=== PATIENT | male | born 1925 | race Caucasian/White ===

== ENCOUNTER 2016-12-10 13:20 | Inpatient (IN) | payer MEDICARE ==
[2016-12-10] VITALS (8 sets, daily range): BP systolic 81–110; BP diastolic 45–64; PULSE 76–97; RESP 18–27; O2SAT 95–98
[~2016-12-10] VITALS: Ht 165.1 cm; Wt 62.9 kg
[~2016-12-10 13:20] MED LIST: ASPI-973 PO; FOLI1TAB18 PO; GLYB1.253 PO; INUL1TAB3 PO; LISI2.5T PO; MAGN100T5 PO; METO25TA6 PO; MULT-1018 PO; SIMV20TA4 PO
[2016-12-10] MEDS ORDERED: 0.9% Sodium Chloride 1,000 ML IV ONE (13:52)
--- NOTE | 2016-12-10 13:54 | ED.REPORT ---
HPI-General Illness Date of Service Dec 10, 2016 ED Provider: Javier Palomino DO The patient is an 89 year old male with history of coronary artery disease s/p CABG, CHF, atrial fibrillation, chronic renal insufficiency, diabetes mellitus dyslipidemia, urinary retention, bladder CA, and anemia, who presents to the emergency department by EMS for generalized weakness. His symptoms gradually worsened throughout the day. When he woke up from his nap his family thought he was more shaky, confused, and weak than normal. Medics report that the patient mentioned something about his chest feeling to similar to when he previously needed surgery but he did not elaborate more than this. He has noticed some discomfort with urination and a runny nose. He denies abdominal pain, vomiting, diarrhea, cough or fever. Nursing Notes Stated Complaint: WEAKNESS/EKG CHANGES Chief Complaint: General Complaint Nursing Notes Reviewed: Yes Allergies: Coded Allergies: No Known Allergies (Verified Allergy, Unknown, 12/10/16) Scheduled Aspirin (Aspirin) 81 Mg Tablet 81 MG PO DAILY Folic Acid (Folic Acid) 1 Mg Tablet 1 MG PO DAILY Glyburide (Glyburide) 1.25 Mg Tablet 0.625 MG PO DAILY Lisinopril (Lisinopril) 2.5 Mg Tablet 2.5 MG PO DAILY Magnesium Amino Acid Chelate (Magnesium) 100 Mg Tablet 200 MG PO BID Metoprolol Tartrate (Metoprolol Tartrate) 25 Mg Tablet 12.5 MG PO BID Multivitamin (Multi Vitamin Daily) 1 Each Tablet 1 EACH PO DAILY Simvastatin (Simvastatin) 20 Mg Tablet 20 MG PO HS Miscellaneous Medications Inulin/Chromium Picolinate (Fiber Select Gummies Tab Chew) 1 Each Tab.chew 1 EACH PO General Time Seen by MD: 13:41 Chief Complaint Weakness, Other (chills) Hx Obtained From: Patient, Daughter, EMS Arrived By: Ambulance Onset Occurred: 1 - 4 hours ago Symptom Duration: Since onset Severity: Current: No pain currently Severity: Maximum: No pain Recent Healthcare: No recent hospitalization, Recent doctor visit Similar Sx Previous: No Past Medical History Past Medical History 1. Coronary artery disease, with CABG at [facility]. 2. Congestive heart failure. Postoperative. 3. Atrial fibrillation, now with chronic anticoagulation. 4. Chronic renal insufficiency with recent acute on chronic renal insufficiency. He is currently at baseline, creatinine 1.6. 5. Dyslipidemia. 6. Postoperative urinary retention. 7. History of bladder CA and anemia. 8. Diabetes mellitus 9. S/p pacemaker insertion Past Surgical History Pacemaker Skin cancer excision Bladder cancer surgery Reports: CABG Family History Noncontributory Smoking History Former Smoker Social History Alcohol Use: Denies alcohol use Drug Use: Denies drug use Other Social History: Good social support, Lives with children, Local resident Ambulatory Status Independent Review of Systems Full Review of Systems Constitutional: Reports: Chills, Denies: Fever Respiratory: Denies: Non-productive cough GI: Denies: Abdominal pain, Diarrhea, Nausea, Vomiting Male: Reports Dysuria (sometimes), Denies Hematuria Allergy / Immune: Reports: Rhinorrhea Neurologic: Reports: Shaking, Weakness Complete sys rev & neg: except as marked. Physical Exam Vital Signs Vital Signs Date Time Temp Pulse Resp B/P Pulse Ox O2 Delivery O2 Flow Rate FiO2 12/10/16 13:37 37.4 96 27 110/54 96 Room Air Initial VS: Reviewed Head / Eyes: Atraumatic, Normocephalic, PERRL ENT: Mucous membranes moist, Conjunctiva normal, No scleral icterus Respiratory: Breath sounds normal, Clear to auscultation, No respiratory distress Cardiovascular: Regular rate & rhythm, Heart sounds normal, Intact distal pulses Abdomen / GI: Soft, Non-tender, No guarding, No rebound, No distention Lymphatic: No lymphadenopathy Extremities: Vascular intact, Neuro intact, No swelling, No tenderness Skin: Warm, Dry, No cyanosis Psychiatric: Mood/affect normal, Behavior normal, Normal thought content General/Constitutional: Awake, Alert Distress / Hydration: Positive: Distress mild Appears mildly weak Neck: Atraumatic, Supple, Full range of motion, No JVD Lower Extremity / Pelvis / MS: Neurologic intact, Vascular intact, No edema Neurologic: Oriented X3, Speech NL, No motor deficits, No sensory deficits, CN II - XII intact Interpretation & Diagnostics Interpretation & Diagnostics: 1.28 creatinine from 11/17/16 Lab Results Interpretation Result Diagram: 12/10/16 1415 12/10/16 1415 Test 12/10/16 14:15 White Blood Count 5.9th/mm3 (3.8-10.1) Red Blood Count 3.86mil/mm3 (4.40-5.80) Hemoglobin 11.5g/dL (13.8-17.2) Hematocrit 34.8% (41.0-50.0) Mean Corpuscular Volume 90.2fL (81-100) Mean Corpuscular Hemoglobin 29.8pg (27.0-35.0) Mean Corpuscular Hemoglobin Concent 33.0% (32.0-37.0) Red Cell Distribution Width 13.7% (12.3-15.4) Platelet Count 108bil/L (150-400) Neutrophils (%) (Auto) 94.2% (40-74) Lymphocytes (%) (Auto) 2.9% (14-46) Monocytes (%) (Auto) 1.9% (4-12) Eosinophils (%) (Auto) 0.3% (0-5) Basophils (%) (Auto) 0% (0-3) Sodium Level 136mEq/L (134-144) Potassium Level 4.5mEq/L (3.5-5.2) Chloride Level 101mEq/L (97-108) Carbon Dioxide Level 19mmol/L (18-29) Blood Urea Nitrogen 31mg/dL (8-27) Creatinine 1.33mg/dL (0.76-1.27) Estimat Glomerular Filtration Rate 54mL/min (>59) Glucose Level 85mg/dL (60-99) Lactic Acid Level 1.5mmol/L (0.4-2.0) Calcium Level 8.0mg/dL (8.5-10.1) Magnesium Level 1.5mg/dL (1.6-2.6) Total Bilirubin 1.0mg/dL (0.0-1.2) Aspartate Amino Transf (AST/SGOT) 91U/L (0-50) Alanine Aminotransferase (ALT/SGPT) 41U/L (0-44) Alkaline Phosphatase 129U/L (25-160) Troponin T 0.047ug/L (0.0-0.011) Total Protein 5.6g/dL (6.4-8.4) Albumin 3.4g/dL (3.4-5.0) Procalcitonin 13.56ng/mL (0.00-0.08) ECG Interpretation ECG Interpretation: Sinus rhythm with a rate of 96 Incomplete RBBB No acute ischemic changes Time: 13:44 Interpreted by: ED physician X-Ray Chest Interpretation Chest Xray Interpretation: IMPRESSION: No acute cardiopulmonary disease process. Dictated by: Cora Smith MD, PhD on 12/10/2016 at 14:18 View: Portable, 1 view Interpretation / Wet Read by: Interpret - Radiologist Re-Eval/Medical Decision Med Decision/Clinical Course Generalized weakness of unclear etiology. Will plan to wait for further lab evaluation. Care transferred to Dr. Coyle. Source of Hx: Old records, EMS, Family Counseled Regarding: Diagnosis, Lab results Discharge & Departure Shift Change Sign-Out Patient Care Transferred: Yes Discussed Complaint(s): Yes Laboratory Evaluation: Ordered, not yet done Imaging Studies: Imaging discussed Response to Therapy: Discussed Primary Impression: Generalized weakness Discharge Condition All VS Reviewed: Yes Condition: Stable Referrals: Aly Duncan MD (PCP) Care Transferred to: Dr. Coyle Care Transferred at: 15:10 Scribe Attestation Portions of this note were transcribed by Pilar Bridges. I, Dr. Palomino personally performed the history, physical exam and medical decision-making; I reviewed and confirmed the accuracy of the information in the transcribed note. Signed by: Nelli Sheehan, 12/10/2016 and 1506. copies to: Aly Duncan MD, Timothy S DO Dec 10, 2016 13:54 Pilar Bridges Dec 10, 2016 13:57
--- NOTE | 2016-12-10 14:21 | DRSVH ---
PROCEDURE: X-RAY CHEST ONE VIEW, PORTABLE ([id number]) INDICATIONS: CHEST PAIN TECHNIQUE: One view of the chest was acquired. COMPARISON: [facility], , CHEST 1VW (PORTABLE), 03/08/2011, 14:57. FINDINGS: Surgical changes and devices: Status post CABG procedure. A dual-lead cardiac pacer is stable. Lungs and pleura: No pleural effusions or pneumothorax. Lungs are clear. Mediastinum: Mediastinal contours appear normal. Heart size is normal. Bones and chest wall: No suspicious bony lesions. Overlying soft tissues appear unremarkable. IMPRESSION: No acute cardiopulmonary disease process. Dictated by: Cora Smith MD, PhD on 12/10/2016 at 14:18 Approved by: Cora Smith MD, PhD on 12/10/2016 at 14:19
[2016-12-10 14:25] LABS: BASOPHILS % (AUTO) 0 % (0-3); EOSINOPHILS % (AUTO) 0.3 % (0-5); MONOCYTES % (AUTO) 1.9 % (4-12); Mean Corpuscular Hemoglobin 29.8 pg (27.0-35.0); Mean Corpuscular Volume 90.2 fL (81-100); NEUTROPHILS % (AUTO) 94.2 % (40-74); Platelet Count 108 bil/L (150-400)
[2016-12-10 15:11] LABS: Magnesium 1.5 mg/dL (1.6-2.6)
[2016-12-10 15:13] LABS: TROPONIN T 0.047 ug/L (0.0-0.011)
[2016-12-10] MEDS ORDERED: 0.9% Sodium Chloride 500 ML IV ONE ×2 (17:00→18:25)
[2016-12-10] MEDS ORDERED: Magnesium Chloride SR 64 mg ER24 Tablet PO ONE (17:30)
[2016-12-10 17:31] LABS: APPEARANCE,URINE CLEAR (CLEAR,HAZY); COLOR,URINE YELLOW (YELLOW); OCCULT BLOOD,URINE NEGATIVE (NEGATIVE); PH,URINE 5.5 (5.0-8.0); UROBILINOGEN,URINE NORMAL (NORMAL)
[2016-12-10] MEDS ORDERED: Vancomycin Dose per Pharmacist XX ONE (18:00)
[2016-12-10] MEDS ORDERED: Piperacillin-Tazo 3.375 Gm Inj 3.375 GM in Dextrose 5% Minibag Plus 50 ML IV ONE (18:00)
[2016-12-10] MEDS ORDERED: Tobramycin per Pharmacist XX ONE (18:00)
[2016-12-10] MEDS ORDERED: Doxycycline Inj 100 MG in Dextrose 5% 100 ML IV ONE (18:00)
[2016-12-10] MEDS ORDERED: Magnesium Sulf 2 Gm/50mL Water 2 GM in IV Premix 1 EACH IV ONE (18:15)
[2016-12-10] MEDS: 0.9% Sodium Chloride 1,000 ML IV SCH (18:21)
[2016-12-10] MEDS ORDERED: Ondansetron 2 mg/mL 2 mL Inj IVPUSH PRN (18:25)
[2016-12-10] MEDS ORDERED: Alum-Mag Hydrox-Simeth 30 mL Suspension PO PRN (18:25)
[2016-12-10] MEDS ORDERED: Gentamicin Inj 120 MG in Dextrose 5% 50 ML IV ONE (19:05)
[2016-12-10] MEDS ORDERED: IBUP200C PO (20:19)
[2016-12-10] MEDS ORDERED: CHOL200047 PO (20:21)
--- NOTE | 2016-12-10 22:54 | PCM.HPMED ---
Subjective Date of Service Dec 10, 2016 Primary Provider: Admitting Physician: Gregg Gooden MD Primary Care Physician: Aly Duncan MD Attending Physician: Gregg Gooden MD Chief Complaint: Generalized weakness History of Present Illness: The patient is an 89 year old male with history of coronary artery disease s/p CABG, CHF, atrial fibrillation, chronic renal insufficiency, diabetes mellitus dyslipidemia, urinary retention, bladder CA, and anemia p/w generalized weakness. Patient was usual state of health until this morning, woke up with severe shaking and chills, with watery runny nose. Otherwise, patient was eating okay with good appetite, no cough or phlegm urinary discomfort, chest pain, palpitation, nausea, vomiting, abdominal pain, constipation-baseline, no diarrhea, joint pain, muscle pain, rash, sore throat. No episode of confusion per daughter. Although daughter recalls the patient had cold around season, this has resolved. Recently patient has been very healthy, functional, walks with cane or walker, no weight loss. Patient received pneumococcus vaccine, flu shot this season. In ED, VS 110/54, 96, 27, 96% on %RA, afebrile, pt appeared non toxic, then pt became hypotensive to mid 90s, s/p 2liters of NS, labs were notable for elevated [id number], lactate 1.5, mild troponin, cr1.33, mg1.5, UA clean, CXR no acute findings. flu swab negative. pt received vanc/zosyn/doxycyclin/ gentamycin, [id number], mg repleted. during the encounter, pt remained very pleasant, denied having any symptoms at the moment, has difficulty appearing Review of Systems: Pertinent positives as noted in history of present illness. All other systems were reviewed and are negative Allergies Coded Allergies: No Known Allergies (Verified Allergy, Unknown, 12/10/16) Home Medications Aspirin daily Folic acid 1 mg daily Glyburide 1.25 milligrams half tablet daily Ibuprofen 200 mg 3 times a day when necessary lisinopril 2.5mg daily magnesium 200 mg twice a day Metoprolol 25 mg, 1/2tab bid triamcinolone apply qhs vitD3 qd PMH PMH 1. Coronary artery disease, with CABG at [facility]. 2. Congestive heart failure. Postoperative. 3. Atrial fibrillation, now with chronic anticoagulation. 4. Chronic renal insufficiency with recent acute on chronic renal insufficiency. He is currently at baseline, creatinine 1.6. 5. Dyslipidemia. 6. Postoperative urinary retention. 7. History of bladder CA and anemia. 8. Diabetes mellitus 9. S/p pacemaker insertion Past Surgical History Pacemaker Skin cancer excision Bladder cancer surgery Reports: CABG Family History cannot remember Smoking History Former Smoker Social History Hx Alcohol Use: No Hx Substance Use: No Hx Tobacco Use: Yes (Quit 22 years ago) Smoking Status: Former Smoker Exam Vital Signs Vital Sign - Last Date Time Temp Pulse Resp B/P Pulse Ox O2 Delivery O2 Flow Rate FiO2 12/10/16 18:56 36.6 79 18 92/50 97 Room Air Exam NAD, comfortably laying down on the bed no JVD, MMM, no LAD RRR, nl s1, s2 no mrg CTAB, no w,c S,ND,NT,normoactive BS+ warm, no edema, pulses 2/2 Lab and Diagnostics Result Diagram: 12/10/16 1415 12/10/16 1415 X-Rays, CTs and MRIs PROCEDURE: X-RAY CHEST ONE VIEW, PORTABLE ([id number]) INDICATIONS: CHEST PAIN TECHNIQUE: One view of the chest was acquired. COMPARISON: [facility], , CHEST 1VW (PORTABLE), 03/08/2011, 14:57. FINDINGS: Surgical changes and devices: Status post CABG procedure. A dual-lead cardiac pacer is stable. Lungs and pleura: No pleural effusions or pneumothorax. Lungs are clear. Mediastinum: Mediastinal contours appear normal. Heart size is normal. Bones and chest wall: No suspicious bony lesions. Overlying soft tissues appear unremarkable. IMPRESSION: No acute cardiopulmonary disease process. Dictated by: Cora Smith MD, PhD on 12/10/2016 at 14:18 Approved by: Cora Smith MD, PhD on 12/10/2016 at 14:19 12-lead ECG Old right bundle branch block, sinus96 Assessment & Plan acute, active probable severe sepsis with unstable hemodynamics, POA, MAP>60s s/p 2liters NS, w/o any signs of endocrine dysfunction, patient is not toxic looking, no obvious signs of infection. UA/CXR clean, no rash/decub ulcer. flu swab neg -continue 100cc/hr NS, trends fever curve, procalcitonin -awaits resp PCR, BCX -consider panscan if pt still remains hypotensive tomorrow, -will continue empiric abx vanc, zosyn for now, #troponemia, POA, EKG-unchanged, likely in setteng of sepsis, trends 3sets chronic, stable #CAD s/p CABG, hx of CHF, appeared mildly dry, continue IVF for now, continue aspirin/bb #Atrial fibrillation, hx of Tachybrady syndrome, status post pacemaker placement , stable, used to be on AC, currently not on #CKD, baseline cr1.6, currently1.3, avoid renal toxin, renally adjust meds #History of bladder CA and anemia, stable #Diabetes mellitus, lispro SS for now, held Glyburide dispo:Patient will be admitted with inpatient status with expectation of inpatient therapy for more than 2 midnights diet: Cardiac, diabetic dvt ppx: Heparin subcutaneous Full Code Time spent 65min Gregg Gooden MD Dec 10, 2016 19:01
[2016-12-11] VITALS (7 sets, daily range): BP systolic 97–110; BP diastolic 52–61; PULSE 63–86; RESP 18–19; O2SAT 96–99
[2016-12-11] MEDS: 0.9% Sodium Chloride 1,000 ML IV SCH ×2 (00:10→14:21)
--- NOTE | 2016-12-11 00:23 | PCM.CONPHA ---
Assessment/Plan Assessment/Plan Pharmacy Kinetic Dosing Vancomycin Indication: PROBABLE SEVERE SEPSIS Vanc goal trough: 15-20 mcg/mL Pt wt: 64.9 kg Other ABX: ZOSYN Cultures: Blood PENDING SCr: 1.33 mg/dL Assessment/Plan: -Loading dose of Vancomycin 1250 mg given in ED for (20mg/kg dosing) -Will continue Vancomycin 1000 mg Q24H (15mg/kg dosing) with trough scheduled prior to 4th dose on - @ 1930 due to patients renal function. Pharmacy appreciates consult and will continue to monitor. Beckie Vickers PharmD Dec 11, 2016 00:22
[2016-12-11 00:41] LABS: TROPONIN T 0.038 ug/L (0.0-0.011)
[2016-12-11 06:40] LABS: BASOPHILS % (AUTO) 0.1 % (0-3); EOSINOPHILS % (AUTO) 0.5 % (0-5); MONOCYTES % (AUTO) 7.6 % (4-12); Mean Corpuscular Hemoglobin 29.6 pg (27.0-35.0); Mean Corpuscular Volume 90.2 fL (81-100); Platelet Count 101 bil/L (150-400)
[2016-12-11 07:15] LABS: Magnesium 2.3 mg/dL (1.6-2.6); Phosphorus 2.7 mg/dL (2.5-4.9)
[2016-12-11] MEDS: Piperacillin-Tazo 3.375 Gm Inj 3.375 GM in Dextrose 5% Minibag Plus 50 ML IV SCH ×2 (08:23→18:22)
[2016-12-11] MEDS ORDERED: Heparin 5,000 Unit/mL Inj SUBQ SCH (08:30)
[2016-12-11] MEDS ORDERED: Vancomycin Dose per Pharmacist XX SCH (08:30)
--- NOTE | 2016-12-11 11:06 | PCM.PNMED ---
Subjective Date of Service Dec 11, 2016 Subjective Patient seen and examined at bedside today, accompanied by his daughter during evaluation who provides some of collateral history. He notes to be feeling significantly improved, daughter confirms this. She remains unclear what it happened the day prior, which prompted emergency room presentation. Onset was acute patient just noted significant decompensation and overall health. Overnight he reports sleeping well, numerous times to urinate. Abdominal pain complained of previously has essentially resolved, he has no other complaints at this time. Continues to deny chest pain. Shortness of breath resolved. Chills and sweats experienced previously have also resolved overnight and have not returned this morning. Note appetite present but not great, daughter additionally adds that he is a light eater and drinks very little water generally at home. Aside from the stuffy nose and some mild viral symptoms recently, he has had no other concerning findings at home. Her also denies sick contacts. He is up-to-date with vaccination history including seasonal flu. Exam Vital Signs Vital Sign - Last Date Time Temp Pulse Resp B/P Pulse Ox O2 Delivery O2 Flow Rate FiO2 12/11/16 09:55 36.7 66 19 97/59 99 Room Air Intake and Output 12/10/16 12/10/16 12/11/16 Cumulative From/Thru 15:00 23:00 07:00 12/10/16 13:37 - 12/10/16 18:57 Intake Total 1000 ml 1000 ml 2000 ml Balance 1000 ml 1000 ml 2000 ml IV Total 1000 ml 1000 ml 2000 ml Exam General: Patient is alert and oriented to person and location, in no acute distress. Pleasant and cooperative examination HEENT: Pupils are round and reactive to light, extraocular eye muscles are intact. Mucous membranes are moist. No oral lesions noted. Neck is supple without masses. No JVD demonstrated. Heart: Regular rate and rhythm, no murmurs rubs or gallops. Heart rate in 60s Lungs: Clear to auscultation bilaterally. No wheezes crackles or rhonchi. Abdomen: Bowel sounds present, normoactive. Abdomen is nontender with perhaps mild distention. Certainly no guarding.. No organomegaly noted on palpation. Extremities: Well perfused. Demonstrate no edema, no calf pain on palpation. Dorsal pedis pulses present bilaterally. Neurologic: Nonfocal examination. IVs and Medications Medications Reviewed: Medications were reviewed in detail Lab and Diagnostics Result Diagram: 12/11/1661312/11/16613 X-Rays, CTs and MRIs PROCEDURE: X-RAY CHEST ONE VIEW, PORTABLE ([id number]) INDICATIONS: CHEST PAIN TECHNIQUE: One view of the chest was acquired. COMPARISON: [facility], CR, CHEST 1VW (PORTABLE), 03/08/2011, 14:57. FINDINGS: Surgical changes and devices: Status post CABG procedure. A dual-lead cardiac pacer is stable. Lungs and pleura: No pleural effusions or pneumothorax. Lungs are clear. Mediastinum: Mediastinal contours appear normal. Heart size is normal. Bones and chest wall: No suspicious bony lesions. Overlying soft tissues appear unremarkable. IMPRESSION: No acute cardiopulmonary disease process. Dictated by: Cora Smith MD, PhD on 12/10/2016 at 14:18 Approved by: Cora Smith MD, PhD on 12/10/2016 at 14:19 12-lead ECG Old right bundle branch block, sinus96 Assessment & Plan acute, active #1. Severe Sepsis/Hypotension: Unknown source however presenting with unstable hemodynamics, POA, MAP>60s s/p 2liters NS, w/o any signs of endocrine dysfunction, patient is not toxic looking this morning, no obvious signs of infection. UA/CXR clean, no rash/decub ulcer. flu swab neg -continue 100cc/hr NS, trends fever curve, procalcitonin elevated significantly overnight, lactic acid level is still pending. -awaits resp PCR is grossly negative, BCX are still present. A mild leukocytosis has developed white blood cell count is now 13, neutrophil percentage however it is declining. -Blood pressure is low but stable, heart rate controlled with beta nick given comorbid cardiovascular disease. -will continue empiric abx vanc, zosyn for now, pending results of MRSA screen and blood cultures. May consider narrowing spectrum tomorrow if patient remains clinically improved and stable. - A consider abdominal CT/ultrasound, later today or tomorrow if patient's condition declines, abdominal pain 3 presents, or if lactic acid level or other studies suggest worsening medical condition. - Alternative diagnoses include transient arrhythmia, secondary to volume depletion, now corrected. Monitor monitoring at this time show no evidence of recurrent event however should this be the case. #Troponemia, POA, EKG-unchanged, likely in setteng of sepsis, likely secondary to cardiac strain renal insufficiency versus true ACS. We will continue to monitor on telemetry. chronic, stable #CAD s/p CABG, hx of CHF, appeared mildly dry, continue IVF for now, continue aspirin/bb #Atrial fibrillation, hx of Tachybrady syndrome, status post pacemaker placement , stable, used to be on AC, currently not on currently due to bleeding risk. #CKD, chronic condition which is improving since admission with volume repletion. #History of bladder CA and anemia, stable #Diabetes mellitus, lispro SS for now, held Glyburide to prevent hypoglycemia. Pain Evaluation: Adequate Pain Control VTE Mechanical Devices: Intermittant Pneumatic CD Resuscitation Status: CPR: Attempt Resuscitation Time spent 30 minutes Tra Nguyen DO Dec 11, 2016 11:06
--- NOTE | 2016-12-11 13:35 | NUR ---
Case Management: Clarification of patient status: inpatient from 12/10/16 per MD order. Bradley Gill RN
--- NOTE | 2016-12-11 16:59 | NUR ---
Case Management: IMM already in chart and signed 12/10/16. Rachel Gregg RN
--- NOTE | 2016-12-11 17:03 | CONS ---
[address] [address] CONSULTATION REPORT PATIENT: TEDDY TAVERAS : 1925 MR#: [id number] ADMIT: 12/10/2016 JOB ID: [id number] DATE OF SERVICE: 12/11/2016 INFECTIOUS DISEASE CONSULTATION: I thank Dr. Gooden for this timely consult. REASON FOR CONSULTATION: Infection of undetermined site. HISTORY OF PRESENT ILLNESS: The patient is an 89-year-old gentleman, an [employer] , who has little insight into why he is here, or in fact even where he is. The patient is apparently quite functional and lives at home with his on [address]. He tells me he goes for a walk every day and is fairly active at baseline. The patient reports he lives with his large extended family on [address] and has been doing quite well up until yesterday, December 10, which was the day of admission. Basically early in the morning of December 10 the patient was reported to have shaking chills and perhaps a runny nose. Otherwise the family told the emergency department physician he was doing very well and having no issues at all. When I interview the patient this afternoon he really has very little idea about what has been going on lately. He tells me that he usually is doing fine at his home on [address] and now finds himself in this strange location. The nurse and I have to keep reorienting the patient as he really does not seem to know that he is in a hospital, though if he is told that he can remember it for at least a short period of time. He is otherwise oblivious to his current situation here. He tells me that he feels basically feels fine. He denies having any recent fevers, chills, or sweats. He denies headache. He denies stiff neck. He says he has had a little bit of a dry cough and perhaps a runny nose, but these are minor. He denies nausea, vomiting, diarrhea, or dysuria. He does not have any pain in his joints and as mentioned has no constitutional symptoms at all. The patient basically tells me he is ready to go. On admission it was noted the patient was not febrile but that he was hypotensive and required fluid boluses. Since that time his blood pressure has stabilized and he has saturated very well on room air and been conversational throughout, though clearly is encephalopathic at this point. 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 b. History of CHF. c. Atrial fibrillation. d. Pacer, left chest. 2. Chronic renal insufficiency. 3. Diabetes. 4. Hypertension. 5. History of bladder cancer. SOCIAL HISTORY: The patient served three years in the [employer] during the time of the [place] war. 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 He was a smoker for almost 40 years, from his 20s until his 60s, but then he quit over 20 years ago. He does not drink alcohol, or at least very minimal amounts. Lives with his extended family on [address]. FAMILY HISTORY: Unclear as the patient's memory is not good but he denies any history of anyone in the family, including his parents or siblings, having tuberculosis. REVIEW OF SYSTEMS: Was done but it is hard to say how accurate any of this is as the patient is somewhat confused right now. He states he has no headache, no fullness in the ears, no sore throat. No stiff neck. No visual change. Minimal perhaps dry cough without shortness of breath or chest pain. No nausea, no vomiting, no diarrhea. No dysuria, urgency, frequency, swollen joints, tender joints, skin rash, or neurologic problem except occasional periods of weakness with which he says he has to steady himself while walking. The remainder of the review of systems was negative. PHYSICAL EXAMINATION: Reveals an afebrile gentleman; he has been afebrile throughout his short stay here in the hospital, now 36.9. His pulse is 86, respiratory rate is 18, blood pressure 110/61, he is saturating well on room air. The patient is awake, alert, pleasant, but really only oriented x1. His head is without evidence of trauma. His ears appear normal. His eyes without conjunctival or scleral abnormalities. Nose normal. Oral cavity without thrush or hairy leukoplakia. Neck is reasonably supple for his 89 years. No adenopathy or JVD is noted. Lungs are quite clear bilaterally. Cardiac tones irregular rate and rhythm, but without murmur. Note that his heart tones are very distant and difficult to auscultate. He has no peripheral stigmata of endocarditis on his hands and specifically no Janeway or Osler lesions. His abdomen is soft and nontender. There is no hepatosplenomegaly or ascites. There is no suprapubic fullness. He is wearing briefs and does not have a Winn. He does have some loose stool in his briefs as well as scattered around the bed. His joints are without evidence of synovitis or swelling. His muscles are nontender. No skin rash is seen. The patient is strong neurologically when asked to push against resistance with his arms and legs. He does not appear to have any sensory issues. The remainder of the physical is normal. LABORATORIES: Include a white count that was 5000 when he came in; it is now 13,000 with a bit of a left shift. Platelet count 101. His creatinine is 1.35, which is at or below his stated baseline. His lactic acid is 0.9. His LFTs are notable for an AST of 75. His albumin 3.3. Procalcitonin when he came in was 13.5, and this morning it was 48. Urinalysis is without any white cells. Blood cultures are negative at 24 hours and a respiratory viral PCR panel is negative. IMAGING: Includes a chest x-ray which is normal. IMPRESSION: This is an odd interesting case of a gentleman who was basically brought to the emergency department by his family it would seem because of profound weakness and a violent shaking chill yesterday morning. Once admitted, the patient is confused and really uncertain as to his location or date, though he is pleasant and conversational and answers questions seemingly appropriately. We are left with a patient with really a nonfocal set of labs which are mainly remarkable for his high white count and extremely elevated procalcitonin. His other labs do not help much in that he has no white cells in his urine which would almost rule out a UTI and his chest x-ray is completely clear which would make pneumonia highly unlikely. It would seem that, based on his encephalopathy, high procalcitonin, and leukocytosis, that he must have a significant bacterial infection producing these mental status changes and weakness. Note that he also initially presented with dehydration and a bit of hypotension which has resolved. Potential sources for this infection might include endocarditis such as a viridans or enterococcal endocarditis, meningitis though he does not have a stiff neck or much else to suggest that diagnosis, or perhaps an occult abdominal or pelvic process which is relatively asymptomatic. RECOMMENDATIONS: 1. Echocardiogram of the heart will be ordered. 2. Repeat blood cultures x2 in an attempt cone picker a potential bacteremia. 3. I would strongly consider a CT scan of the abdomen and pelvis looking for an occult source of infection such as an intra-abdominal abscess. I will not order this and will defer to the hospitalist at this time on this study. 4. A lumbar puncture would not be unreasonable here as we have a patient who is confused and by report is not normally encephalopathic or demented. He also has evidence of infection arguing against an acute bacterial meningitis as he has a completely benign appearance and absence of a stiff neck. It is also possible that he could have an encephalitis such as herpes simplex or VZV but again I would expect more changes in sensorium than this simple confused appearance that we see today. We can probably wait on that at least until tomorrow as we consider what to do. 5. I note that the patient has received a combination of antibiotics including doxy, gent, and vanc, and Zosyn. I will go ahead and stop the doxy, gent, and vanc at this point. Continuing the Zosyn is probably reasonable while we try and figure out what is going on here. 6. A MRSA will be ordered.
[2016-12-11] MEDS ORDERED: Vancomycin Inj 1,000 MG in IV Premix 1 EACH IV SCH (20:00)
[2016-12-11] MEDS ORDERED: MAGNESIUM AMINO ACID CHELATE PO SCH (20:30)
--- NOTE | 2016-12-11 21:52 | DRSVH ---
PROCEDURE: CT ABDOMEN WITHOUT CONTRAST ([id number]) INDICATIONS: abdominal pain/bloating/sepsis TECHNIQUE: After the administration of oral contrast, 5 mm thick sections acquired from the diaphragms to the il iac crests. 5 mm coronal and sagittal reformats were then performed. For radiation dose reduction, the following was used: automated exposure control, adjustment of mA and/or kV according to patient size. COMPARISON: None. FINDINGS: Image quality: Excellent. Lung bases: Trace pleural effusions and adjacent atelectasis. 5 mm nodule seen in left lung base on i mage 7 series 3, indeterminate. Solid organs: Unenhanced liver and spleen are normal in size. Gallbladder demonstrates diffuse wall thickening although no radiopaque gallstones are seen. No definite biliary ductal dilatation. Pancre as is normal in contours. Left adrenal nodule, with borderline attenuation possibly adenoma although technically nonspecific. Both kidneys are normal in size, without hydronephrosis or nephrolithiasis. Peritoneum and bowel: Bowel loops demonstrate normal wall thickness and caliber. No free fluid or a ir. Appendix not visualized Nodes and vessels: No pathologically enlarged retroperitoneal or mesenteric lymphadenopathy. Infraren al abdominal aortic aneurysm measuring 3.3 cm. Bones: No suspicious bony lesions. No vertebral body compression fractures. Miscellaneous: No ventral hernias. IMPRESSION: Diffuse gallbladder wall thickening suspicious for acute cholecystitis although this finding is techn ically age-indeterminate. Recommend clinical correlation, and with LFTs. Nonspecific left adrenal nodule. Recommend followup with adrenal protocol MRI to exclude metastatic/m alignant possibilities. Distal abdominal aortic aneurysm measuring 3.3 cm. Recommend continued surveillance with ultrasound. Bilateral trace pleural effusions. 5 mm left basilar pulmonary nodule, also nonspecific. This could be followed up with noncontrast ches t CT in 6 months to exclude early metastatic/malignant etiology. Dictated by: Jac Garduno M.D. on 12/11/2016 at 21:45 Approved by: Jac Garduno M.D. on 12/11/2016 at 21:51
--- NOTE | 2016-12-11 23:03 | NUR ---
Activity Pt insisted on getting up OOB to commode Pt was a very heavy two person assist. Unable to hold his own weight. REturned safely to bed. Bed Alarm in place Care ongoing
[2016-12-12] VITALS (9 sets, daily range): BP systolic 109–159; BP diastolic 54–79; PULSE 64–80; RESP 18; O2SAT 93–97
--- NOTE | 2016-12-12 00:24 | NUR ---
Confusion Pt has a hx of dementia. He currently is very confused. Oriented to name only. Pulling off his gown asking to "get the cable underway and move the logs". Attempted to reoirent numerous times. Daughter at bedside appears upset with the pt's restless confusion. Room darkened. Requested pt to go to sleep. Pt appears mildly quieter. WIll cont to monitor
[2016-12-12 07:05] LABS: BASOPHILS % (AUTO) 0.1 % (0-3); EOSINOPHILS % (AUTO) 1.2 % (0-5); MONOCYTES % (AUTO) 6.6 % (4-12); Mean Corpuscular Hemoglobin 30.3 pg (27.0-35.0); Mean Corpuscular Volume 90.1 fL (81-100); NEUTROPHILS % (AUTO) 74.7 % (40-74); Platelet Count 106 bil/L (150-400)
[2016-12-12] MEDS ORDERED: Non-Formulary Medication (Multivitamin (Multi Vitamin Daily) 1 EACH) PO SCH (08:30)
--- NOTE | 2016-12-12 09:26 | NUR ---
Social Work: Initial Assessment Data: Pt is an 89 y/o male admitted for n stemi, new right bundle branch block. Pt's PCP is Dr Duncan, pt's insurance is [employer]. EMR reviewed. ABSEILING INSTRUCTOR met with pt at daughter at bedside, pt sleeping soundly. Pt's daughter is DPOA, and gave information. She states pt lives with herself, his daughter, and his son who care give for him as he has dementia. She states that their home is a single story with 3 steps to enter, pt uses a walker and cane at baseline. She states pt has no history at SNF or HH, No LTC or VA benefits, and is not a caregiver. ABSEILING INSTRUCTOR will continue to follow for possible HH need. Assessment: Pt with dementia. Plan: Pt will likely d/c home via POV with daughter when medically stable. ABSEILING INSTRUCTOR will continue to follow for possible HH need. KAITLIN Cruz Addendum: 12/12/16 at 0929 by DOV NOVAK Amended: Links added.
[2016-12-12] MEDS: Piperacillin-Tazo 3.375 Gm Inj 3.375 GM in Dextrose 5% Minibag Plus 50 ML IV SCH ×2 (09:32→18:07)
--- NOTE | 2016-12-12 13:46 | PROG NOTE ---
[address] [address] PROGRESS NOTE PATIENT: TEDDY TAVERAS : 1925 MR#: [id number] ADMIT: 12/10/2016 JOB ID: [id number] DATE: 12/12/2016 INFECTIOUS DISEASE FOLLOWUP NOTE: REASON FOR FOLLOWUP: Unexplained leukocytosis and elevated procalcitonin following chills in a demented gentleman. INTERVAL HISTORY: Additional history was obtained this afternoon from the patient's daughter. She states that the patient has been getting confused for about the past year and a half. She tells me that he usually knows where he is but is easily mixed up, disoriented, and that this problem has been relentlessly progressive for about 18 months now. She also tells me that she was with him when this situation started a few days ago. The patient was feeling his usual self and then developed a violent shaking chill. The patient wondered aloud if he might be having a stroke. After that, he became much more confused than is his confused baseline and for that reason he was brought to the hospital and admitted. Speaking to the patient this morning, he again states he feels fine. He denies all complaints. He allowed me to examine him but about longterm through declined any more physical contact with the examiner. The patient remains completely afebrile and has been since admission two days ago. He is 36.8 now, pulse 80, respiratory rate 18, blood pressure 108/54. He is saturating well on room air. The patient is again confused. He refuses to say where he is and is not aware of time, though he does answer questions and has fluent speech. The exam of the oral cavity is unremarkable. His neck is reasonably supple. His lungs are quite clear. Cardiac tones without significant murmur. Abdomen is benign including deep pressure in the right upper quadrant. He refused examination of his system or his legs. LABORATORIES: Include a white count stable at 13,000, 75% segs, platelets 106. Creatinine 1.32. AST is 67. Albumin 3.4. Procalcitonin was 48 yesterday, 28 today, so declining. His urinalysis had no white cells. Blood cultures x4 were all negative. Viral PCR studies negative. MRSA screen is pending but he has no prior history of MRSA. Chest x-ray was clear. Abdominal CT scan that we had recommended yesterday showed some gallbladder wall thickness suspicious for acute cholecystitis. Also seen is a left adrenal nodule. IMPRESSION: This case discussed extensively with Dr. Nguyen today. It is unclear at this point if the patient has any infection, though his daughter clearly reports that his mental status declined from baseline three days ago on the day of admission when he was brought here with violent shaking chills. He has not had any significant fevers here and he remains hemodynamically stable. The patient has no focal complaints and physical exam is surprisingly negative. Our CT scans, x-rays, and other studies have not shown much except the high white count, high procalcitonin which is now declining, and possible gallbladder wall thickness in association with a minimally elevated AST and normal ALT. Perhaps gallbladder disease explains some what is going on, though it is unclear to me at this point. It is interesting that his procalcitonin seems to be coming down on Zosyn, which would be a reasonable drug for right upper quadrant disease. RECOMMENDATIONS: 1. I have ordered an ultrasound of the right upper quadrant. 2. I will continue with pip/tazo at this time. 3. The patient need not be in isolation for MRSA, as he had no history of MRSA and it is very unlikely, even though we have a screen pending. 4. I would continue with Zosyn for the time being until we sort this out a little bit. 5. If the patient looks well over the weekend, and there is no indication of focal infection, I would probably discharge him, but I would send him out with a short course of Augmentin to complete 7-10 days of antibiotics as I suspect we are treating an infection; it is just unclear at this point what that is. 6. A repeat procalcitonin tomorrow would also help. If it continues to fall by about half a day that strongly suggests that he has a bacterial infection. If the procalcitonin simply stabilizes and he remains afebrile, and he looks good, this could be a sign of an occult metastatic malignancy. [facility]
--- NOTE | 2016-12-12 15:15 | NUR ---
Confused Pt is calm and peaceful yet very confused about surroundings, location, and what is going on. Spoke softly and explained every step as well as reorienting patient to surroundings.
--- NOTE | 2016-12-12 15:41 | NUR ---
ADWOA ORONA left in voice mail to PRACHI. KAITLIN Cruz
--- NOTE | 2016-12-12 16:06 | NUR ---
took over care at 3pm
--- NOTE | 2016-12-12 16:40 | PCM.PNMED ---
Subjective Date of Service Dec 12, 2016 Subjective No overnight event Patient sleeps. Mumbles at the time of interview. Per daughter, patient is quite demented at baseline. On good days, he would be alert easily oriented and upright walking Other days, he sleeps. And sleeps more with vivid hallucinations when he is ill. Exam Vital Signs Vital Sign - Last Date Time Temp Pulse Resp B/P Pulse Ox O2 Delivery O2 Flow Rate FiO2 12/12/16 13:05 36.8 80 18 109/54 96 Room Air Intake and Output 12/11/16 12/11/16 12/12/16 Cumulative From/Thru 15:00 23:00 07:00 12/10/16 13:37 - 12/11/16 18:32 Intake Total 650 ml 1908 ml 4558 ml Output Total 750 ml 425 ml 1175 ml Balance -100 ml 1483 ml 3383 ml Intake Oral 650 ml 386 ml 1036 ml IV Total 1522 ml 3522 ml Output Urine Total 750 ml 425 ml 1175 ml # Voids 2 2 # Bowel Movements 1 1 Exam Gen: Lying comfortably at 30degree head tilt HEENT: PERRLA, Anicteric sclerae, moist conjunctivae, and no lid lag. Neck: supple, no JVD Cardio: Regular rate and rhythm with no murmurs, rubs, or gallops appreciated Pulm: b/l air sound, no crackles, wheezes, or rhonchi. Normal respiratory effort with no use of accessory muscles. Abd: positive bowel tone. Soft, nontender, nondistended. Extremities: No clubbing, cyanosis, edema, or lymphadenopathy appreciated. Skin: Normal temperature, turgor, and texture; no rash, ulcers, or subcutaneous nodules appreciated. Neuro: Cranial nerves grossly intact. moving equally on all four limbs. Psyc: alert and oriented when woken up. IVs and Medications Medications Reviewed: Medications were reviewed in detail Lab and Diagnostics Result Diagram: 12/12/1663412/12/16634 X-Rays, CTs and MRIs PROCEDURE: X-RAY CHEST ONE VIEW, PORTABLE ([id number]) INDICATIONS: CHEST PAIN TECHNIQUE: One view of the chest was acquired. COMPARISON: [facility], , CHEST 1VW (PORTABLE), 03/08/2011, 14:57. FINDINGS: Surgical changes and devices: Status post CABG procedure. A dual-lead cardiac pacer is stable. Lungs and pleura: No pleural effusions or pneumothorax. Lungs are clear. Mediastinum: Mediastinal contours appear normal. Heart size is normal. Bones and chest wall: No suspicious bony lesions. Overlying soft tissues appear unremarkable. IMPRESSION: No acute cardiopulmonary disease process. 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 Admitted for AMS, possible bacteremic. Leukocytosis, present on admission, active -- SIRS positive, Initial wbc 13.6 with left shift. UA without WBC, CRx clear. Vitals stable, no fever. no rash seen, no neck stiffness. -- Procalcitonin 13.56. strong concerns for bacteremia, endocarditis, possible malignancy -- ID Dr. Ferris consulted, CT-Abd showing thicken gallbladder. -- Broad spec abx: zosyn started 2/2 with procalcitonin decreasing by over 1/2. This suggestive of active infection per ID -- Abdominal ultrasound ordered, echardiogram pending for possible heart and/or gallbladder pathology per ID -- Blood culture negative x2days, redraw blood pending Elevated troponin of unknown significant, present on admission, stable -- initial trop 0.047, trended down to 0.038, no EKG changes -- Likely false positive in the setting of CKD -- Telemetry on chronic, stable CAD s/p CABG, hx of CHF, appeared mildly dry, continue IVF for now, continue aspirin/bb Atrial fibrillation, hx of Tachybrady syndrome, status post pacemaker placement , stable, used to be on AC, currently not on currently due to bleeding risk. CKD, chronic condition which is improving since admission with volume repletion. History of bladder CA and anemia, stable Diabetes mellitus, lispro SS for now, held Glyburide to prevent hypoglycemia. Disposition: Will likely be here over the weekend pending infectious workup. VTE Mechanical Devices: Intermittant Pneumatic CD Resuscitation Status: CPR: Attempt Resuscitation Time spent 30 minutes Attending Statement I have seen and evaluated patient at bedside, in addition to directly supervising care provided by resident physician. I agree with above documentation. Rob Swanson DO Dec 12, 2016 14:53 Tra Nguyen DO Dec 12, 2016 18:42
--- NOTE | 2016-12-12 17:28 | DRSVH ---
[facility] [address] [place] [address] Echocardiogram Report Name: TEDDY TAVERAS WStudy Date: 12/12/2016 Height: 65 in Hospital Exam Location: [facility] Weight: 143 lb Gender: Male BSA: 1.7 m2 : 1925 Age: 89 yrs BP: 116/60 mmHg Reason For Study: HIGH WBC, R/O ENDOCARDITIS Ordering Physician: HOSPITALIST KUSHerformed By: Yobany Amaral Referring Physician: YANELY WINTER Interpretation Summary 1) Normal left ventricular thickness, size, and systolic function (EF 55- 60%). 2) No obvious focal wall motion abnormalities noted but poor endocardial definition reduces the sensitivity for the detection of such. 3) Normal right ventricular size and function. Pacemaker lead visualized in the right ventricle 4) No significant valvular abnormalities. 5) Compared to the Echo done 02/27/2011, no signficant change. Consider JAMES if clinically suspicious of endocarditis. Procedure: A two-dimensional transthoracic echocardiogram with color flow and Doppler was performed. The study quality was technically difficult. Comparison is made with the echocardiogram of 02/27/11. The patient was in normal sinus rhythm during the exam. Left Ventricle: There is normal left ventricular wall thickness. The left ventricle is normal in size. The ejection fraction is estimated to be 55-60%. The left ventricular ejection fraction is grossly normal. There are no obvious focal wall motion abnormalities noted but poor endocardial definition reduces the sensitivity for the detection of such. Septal motion is consistent with post-operative state. Diastolic function could not be accurately assessed due to paced rhythm. Right Ventricle: The right ventricle grossly appears normal in size with probable normal systolic function. There is a pacemaker lead in the right ventricle. Atria: The left atrium grossly appears normal in size. The right atrium grossly appears normal in size. The interatrial septum is intact with no evidence for an atrial septal defect. Mitral Valve: There is mild to moderate mitral annular calcification. The mitral valve leaflets are slightly calcified. There is mild mitral regurgitation. Aortic Valve: The aortic valve is normal in structure and function. There is no aortic valve stenosis. No aortic regurgitation is present. Tricuspid Valve: The tricuspid valve is normal. There is a trace or physiologic amount of tricuspid regurgitation. There is mild tricuspid regurgitation. The right ventricular systolic pressure is estimated at 32 mmHg assuming a right atrial pressure of 3 mm Hg. Pulmonic Valve: The pulmonic valve is not well seen, but is grossly normal. There is a trace or physiologic amount of pulmonic regurgitation. Great Vessels: The aortic root is normal size. The ascending aorta could not be visualized. The pulmonary artery is normal size. The IVC is of normal diameter and collapses greater than 50% with a sniff. This suggests a low right atrial pressure of 3 mm Hg. Pericardium/ Pleura There is no pericardial effusion. There is no pleural effusion. MMode/2D Measurements & Calculations IVC diam: 2.0 cm Doppler Measurements & Calculations Ao V2 max MV E max geoff MV E/A: 0.92 TR max geoff : 95.5 cm/sec : 81.6 cm/sec : 266.7 cm/sec Ao max P.7 mmHg MV A max geoff TR max PG Ao mean P.0 mmH.2 cm/sec : 28.5 mmHg LVOT Max Geoff : 70.1 cm/sec sev ratio: 0.76 MV dec time Ao V2 mean LV V1 max PG : 0.20 sec : 67.2 cm/sec Ao V2 VTI: 20.5 cm LV V1 VTI : 15.6 cm Reading Physician:05:28 PM
[2016-12-13] VITALS (7 sets, daily range): BP systolic 117–152; BP diastolic 65–82; PULSE 60–80; RESP 17–20; O2SAT 91–97
[2016-12-13] MEDS: Piperacillin-Tazo 3.375 Gm Inj 3.375 GM in Dextrose 5% Minibag Plus 50 ML IV SCH ×2 (05:41→17:36)
[2016-12-13 05:47] LABS: BASOPHILS % (AUTO) 0.1 % (0-3); EOSINOPHILS % (AUTO) 1.6 % (0-5); MONOCYTES % (AUTO) 6.8 % (4-12); Mean Corpuscular Volume 89.8 fL (81-100); NEUTROPHILS % (AUTO) 67.2 % (40-74); Platelet Count 106 bil/L (150-400)
[2016-12-13 06:27] LABS: Magnesium 1.7 mg/dL (1.6-2.6)
--- NOTE | 2016-12-13 06:46 | NUR ---
Mental status Pt alert and very confused, oriented to self only, does not make meaningful conversation, ANG in bed. He has been sleeping through the night, son in room overnight and does not want nursing staff to wake pt up during sleep, son yelled at [employer]IC[employer] ACID BLENDER at late evening because pt states hungry and SALIC[employer]IC ACID BLENDER trying to offer pt food, son yelled at RN "Go out!" Leave the food there. I won't feed my father" when RN trying to remove food at bedside table because order is NPO after MN for abdominal US. RN sitting outside pt window to keep eye on pt, pt appears comfortably lying in bed with eyes closed. Pt appear very sleepy, open eyes by voice this am, but does not talk, then go back to sleep quickly. Son said pt just "very tired" "This normal for him." "He(pt) did not sleep at all the night before". BS 100 this am lat draw, VSS, afebrile. Report given to day shift to keep eye on pt mental status.
--- NOTE | 2016-12-13 08:51 | DRSVH ---
PROCEDURE: US ABDOMEN, LIMITED ([id number]) INDICATIONS: RUQ - ? JEOVANY ? LIVER METS, I CANCELLED IN ERROR TECHNIQUE: Real-time focused scanning was performed of the abdomen, with image documentation. COMPARISON: None. FINDINGS: Liver has a diffusely increased echotexture which typically represents fatty infiltration; however, finding is nonspecific and other etiologies including hepatic cirrhosis can have a similar a ppearance. Please correlate with clinical and laboratory findings. Mobile gallstone in the gallbladde r lumen. Gallbladder wall is mildly thickened measuring 3.6 mm. Extrahepatically tree is not visualiz ed due to bowel gas and cannot be evaluated. No intrahepatic biliary tree dilatation. IMPRESSION: 1. Echogenic liver. Finding typically represents fatty infiltration; however, finding is nonspecific and correlation with clinical and laboratory findings is recommended to exclude other etiologies incl uding hepatic cirrhosis. 2. Cholelithiasis with mild gallbladder wall thickening concerning for acute cholecystitis. Please co rrelate with clinical data. Dictated by: Cora Smith MD, PhD on 12/13/2016 at 8:47 Approved by: Cora Smith MD, PhD on 12/13/2016 at 8:49
--- NOTE | 2016-12-13 12:15 | NUR ---
Drowsy: Patient extremely drowsy this am. Moans with sternal chest rub. Son concerned of why patient sleeping. No medications administered that would alter patient mental status. MD aware. Patient more awake around 1200. Repositioned and brief changed. Scheduled am medications administered late due to drowsiness. Family present. Sitting upright in bed, talking with daughter.
--- NOTE | 2016-12-13 12:20 | PCM.PNMED ---
Subjective Date of Service Dec 13, 2016 Subjective The patient is an 89 year old male with history of coronary artery disease s/p CABG, CHF, atrial fibrillation, chronic renal insufficiency, diabetes mellitus dyslipidemia, urinary retention, bladder CA, and anemia p/w generalized weakness. Overnight: Patient was not able to sleep much overnight. He was also noted to be slightly more disoriented to surroundings, although no specific complaints. This morning, patient is more somnolent and difficult to arouse. With forceful stimulation, he does open his eyes and grunts in pain when you palpate his abdomen. He is otherwise sleeping peacefully. Exam Vital Signs Vital Sign - Last Date Time Temp Pulse Resp B/P Pulse Ox O2 Delivery O2 Flow Rate FiO2 12/13/16 05:57 78 12/13/16 05:46 37.1 18 117/67 93 Room Air Intake and Output 12/12/16 12/12/16 12/13/16 Cumulative From/Thru 15:00 23:00 07:00 12/10/16 13:37 - 12/13/16 05:47 Intake Total 350 ml 235 ml 5143 ml Output Total 200 ml 400 ml 1775 ml Balance 150 ml -165 ml 3368 ml Intake Oral 300 ml 200 ml 1536 ml IV Total 50 ml 35 ml 3607 ml Output Urine Total 200 ml 400 ml 1775 ml # Voids 3 5 # Bowel Movements 1 2 Exam Gen: Somnolent, difficult to arouse HEENT: PERRLA, Anicteric sclerae, Neck: supple, no JVD noted Cardio: Regular rate and rhythm with soft systolic murmur Pulm: b/l air sound, no crackles, wheezes, or rhonchi. Normal respiratory effort Abd: positive bowel tone. Soft, nondistended, but moderately tender to palpation in RUQ Extremities: No clubbing, cyanosis, edema, or lymphadenopathy appreciated. Skin: warm, dry, intact. Telemetry pad adhesive rash noted. Neuro: Somnolent and hard to evaluate. Psyc: Somnolent, but not aggressive when woken briefly. IVs and Medications Medications Reviewed: Medications were reviewed in detail Lab and Diagnostics Result Diagram: 12/13/1630 12/13/16 0530 X-Rays, CTs and MRIs PROCEDURE: X-RAY CHEST ONE VIEW, PORTABLE ([id number]) INDICATIONS: CHEST PAIN TECHNIQUE: One view of the chest was acquired. COMPARISON: [facility], , CHEST 1VW (PORTABLE), 03/08/2011, 14:57. FINDINGS: Surgical changes and devices: Status post CABG procedure. A dual-lead cardiac pacer is stable. Lungs and pleura: No pleural effusions or pneumothorax. Lungs are clear. Mediastinum: Mediastinal contours appear normal. Heart size is normal. Bones and chest wall: No suspicious bony lesions. Overlying soft tissues appear unremarkable. IMPRESSION: No acute cardiopulmonary disease process. 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 Admitted for AMS. Leukocytosis, present on admission, active -- SIRS positive, Initial wbc 13.6 with left shift. UA without WBC, CRx clear. Vitals stable, no fever. no rash seen, no neck stiffness. -- Procalcitonin 13.56. strong concerns for bacteremia, endocarditis, possible malignancy -- ID Dr. Ferris consulted, CT-Abd showing thicken gallbladder. RUQ U/S ordered to further evaluate -- Broad spec abx: zosyn started 2/2 with procalcitonin decreasing by over 1/2. This suggestive of active infection per ID -- Abdominal ultrasound ordered, echocardiogram pending for possible heart and/ or gallbladder pathology per ID -- Blood culture negative x2days, redraw blood pending Somnolence, acute --WIll continue to monitor, may need brain CT to evaluate if not improving. DDx , delirium, meningitis, bacteremia Elevated troponin of unknown significant, present on admission, stable -- initial trop 0.047, trended down to 0.038, no EKG changes -- Likely false positive in the setting of CKD -- Telemetry on chronic, stable CAD s/p CABG, hx of CHF, appeared mildly dry, continue IVF for now, continue aspirin/bb Atrial fibrillation, hx of Tachybrady syndrome, status post pacemaker placement , stable, used to be on AC, currently not anticoagulated due to bleeding risk. CKD, chronic condition which is improving since admission with volume repletion. History of bladder CA and anemia, stable Diabetes mellitus, lispro SS for now, held Glyburide to prevent hypoglycemia. Disposition: Will likely be here over the weekend pending infectious workup. Pain Evaluation: Adequate Pain Control VTE Mechanical Devices: Intermittant Pneumatic CD Resuscitation Status: CPR: Attempt Resuscitation Attending Statement I have seen and evaluated Mr. Torres at his bedside, in addition to directly supervising the care provided by the resident physician. I agree with the above documentation. It accurately reflects my exam findings, assessment and plan. In addition I would consider a head CT to rule out GR[employer]MENT [employer] process causing both the infection and the somnolence. The gallbladder ultrasound report is consistent with cholelithiasis and possible cholecystitis.. Consider surgical consult with continuation of antibiotics for now. Reza Mccullough M.D. I agree Dutch Hummel DO Dec 13, 2016 07:30 Kaylan Mccullough MD Dec 13, 2016 13:23
--- NOTE | 2016-12-13 13:53 | NUR ---
Evaluation completed. Please go to "Notes" then click on "Assessments and Notes" (bottom left corner of screen). Then select appropriate discipline tab on top of screen.
--- NOTE | 2016-12-13 14:42 | NUR ---
Safety: Spoke with patients daughter and expressed importance of having nursing staff with patient when getting up to chair/BSC. Patients daughter states she and other family get patient up at home all the time. Explained that because we are concerned with patient safety to let nursing staff/PT assist with patient mobility.
[2016-12-13] MEDS ORDERED: 0.9% Sodium Chloride 250 ML ONE (17:32)
--- NOTE | 2016-12-13 17:47 | PROG NOTE ---
[address] [address] PROGRESS NOTE PATIENT: TEDDY TAVERAS : 1925 MR#: [id number] ADMIT: 12/10/2016 JOB ID: [id number] DATE: 12/13/2016 INFECTIOUS DISEASE FOLLOWUP NOTE: REASON FOR FOLLOWUP: Bacterial infection of unknown location; possible cholecystitis. INTERVAL HISTORY: The patient continues to feel better. His two daughters are with him now and they report his mental status is approaching his normal, which is somewhat confused, and his energy level is all the way back to normal. They state he was up walking in the gross[place] with some assistance today and he is currently sitting up, enjoying a hearty dinner of biscuits with mayonnaise and Czech sausage they brought from home. The patient tells me he has no fevers, chills, or sweats. No cough and no belly pain. He is looking forward to finishing his dinner. He also tells me that he believes he may have inadvertently stolen a car within the last 24 hours and that people are looking for him, which makes me question perhaps the rest of the history. PHYSICAL EXAMINATION: Reveals an afebrile, confused but very pleasant gentleman sitting up and having dinner. Temp 36.3; he has been afebrile since admission. His pulse is 80, his respiratory rate is 18, blood pressure 124/74, saturating well on room air. As noted, he is confused and his daughters say this is normal. His lungs are quite clear with deep inspiration. Cardiac tones without new murmur. Abdomen is benign. No skin rash noted. No significant adenopathy. LABORATORIES: Include a white count which has normalized to 8000 with a normal diff for the first time today. His creatinine is 1.18 which is also the best it has been in this admission. His CRP is 7.3. His procalcitonin is coming down by half a day; it was 48 on December 11, was 28 yesterday, and 14 today. This pattern of procalcitonin dropping by half per day is typical of a serious bacterial infection and almost nothing else would produce this. Cultures unfortunately were all negative including four sets of blood cultures, a MRSA screen, and a multiplex PCR stain. IMAGING: Includes the abdominal ultrasound which I had ordered yesterday. This shows some fatty liver; but, more importantly, cholelithiasis with some mild gallbladder wall thickening consistent with acute cholecystitis. IMPRESSION: This is an elderly gentleman who presented with shaking chills and confusion. Given the pattern of an extremely elevated procalcitonin which is coming down rapidly with broad-spectrum antibiotics, I am absolutely certain we are treating a very significant bacterial infection. Unfortunately, there is very little to suggest where this could be other than possibly the gallbladder. At this point he is doing well on Zosyn and I would continue. RECOMMENDATIONS: 1. I would consult general surgery regarding their opinion about his gallbladder. 2. A HIDA scan could be useful here. 3. I would continue with the Zosyn for at least two or three more days and hopefully will continue to see this rapid drop in procalcitonin suggesting we are considering a bacterial infection even if we do not know what it is. 4. As he continues to improve we might consider discharging on Augmentin to finish a 10-day course. But first we need to make sure he does not need any intervention with respect to his gallbladder.
[2016-12-13] MEDS ORDERED: Vancomycin Serum Trough XX ONE (19:30)
[2016-12-14] VITALS (9 sets, daily range): BP systolic 98–180; BP diastolic 58–78; PULSE 60–83; RESP 18–20; O2SAT 95–98
[2016-12-14] MEDS: Piperacillin-Tazo 3.375 Gm Inj 3.375 GM in Dextrose 5% Minibag Plus 50 ML IV SCH ×2 (05:59→18:31)
--- NOTE | 2016-12-14 06:36 | NUR ---
Mental Status Pt remains very confused, does not recognize her daughter correctly, oriented to self, calm, quiet. He was pretty awake and sitting and in chair eating in late evening. After help back to bed around 2100,pt slept soundly through the night except waken up for taking med or vitals,repositioning or brief change. He appears somnolent,open eyes by voice, answer questions by mumbling "no" pain, follow command of slightly public speaking teacher RN's hands. VSS, afebrile.
[2016-12-14 06:44] LABS: BASOPHILS % (AUTO) 0.3 % (0-3); EOSINOPHILS % (AUTO) 2.8 % (0-5); MONOCYTES % (AUTO) 8.3 % (4-12); Mean Corpuscular Hemoglobin 29.6 pg (27.0-35.0); Mean Corpuscular Volume 89.4 fL (81-100); NEUTROPHILS % (AUTO) 53.3 % (40-74); Platelet Count 107 bil/L (150-400)
--- NOTE | 2016-12-14 16:18 | NUR ---
ADWOA attempted ENERGY AND SUSTAINABILITY MANAGER attempted ADWOA in the AM, pt's POA not present. ENERGY AND SUSTAINABILITY MANAGER called POA, no answer. ENERGY AND SUSTAINABILITY MANAGER called later in the day, person who answered states pt's POA is on her way to the hospital. ENERGY AND SUSTAINABILITY MANAGER will attempt later. KAITLIN Cruz
--- NOTE | 2016-12-14 18:29 | CONS ---
[address] [address] CONSULTATION REPORT PATIENT: TEDDY TAVERAS : 1925 MR#: [id number] ADMIT: 12/10/2016 JOB ID: [id number] DATE OF SERVICE: 12/14/2016 REASON FOR CONSULTATION: I am seeing the patient in consultation at the request of Dr. Mccullough regarding further evaluation and management of cholelithiasis and possible cholecystitis. HISTORY OF PRESENT ILLNESS: The patient is an 89-year-old man with a history of dementia, diabetes, and a myriad of other medical comorbidities who was admitted to the hospital on December 10 after he developed weakness at home. Initially upon arrival, his white blood cell count was normal at 5.9. However, his procalcitonin was elevated at 13.56. He developed a leukocytosis up to 13.6 the next day at which time a CT scan of the abdomen and pelvis was obtained. I have personally reviewed this. It was read as demonstrating gallbladder wall thickening. An ultrasound of the abdomen was obtained on the , again which I have personally reviewed. This shows mobile gallstones in the gallbladder lumen. The gallbladder wall measured up to 3.6 mm and was read as concerning for acute cholecystitis. The patient has been on broad-spectrum antibiotics. His leukocytosis has resolved. His mental status is improved and he is now tolerating a regular diet. His daughter provides most of the history. She lives with him on [address]. She denies any antecedent history of abdominal pain and he continues to deny abdominal pain today. PAST MEDICAL HISTORY: 1. Coronary artery disease. 2. Dementia. 3. Diabetes. 4. CHF. 5. Atrial fibrillation. 6. Chronic kidney disease. 7. Spinal stenosis. 8. Urinary retention. 9. Bladder cancer. 10. Anemia. PAST SURGICAL HISTORY: 1. Three-vessel CABG, after an [place] as well as a pacemaker placement in 2010. 2. Bladder cancer surgery. MEDICATIONS: Current medications reviewed in the computer. He is on aspirin at home but no anticoagulation otherwise. ALLERGIES: He has no known drug allergies. FAMILY HISTORY: Family history is reviewed and noncontributory. SOCIAL HISTORY: He is retired from [employer]. He lives on [address]. His adult daughter lives with him. He quit smoking 22 years ago. He does not drink alcohol. REVIEW OF SYSTEMS: As best I am able to, full review of systems is obtained. The patient denies any symptoms. His daughter says that he is still weak. PHYSICAL EXAMINATION: Vital signs: He is been afebrile over the last 24 hours with a normal heart rate. This afternoon, his temperature is 36.7 degrees, heart rate 60 beats per minute, blood pressure is 180/78, satting 96% on room air with a respiratory rate of 18 breaths per minute. In general, he appears comfortable, in no acute distress. Cardiovascular: Regular rate and rhythm. No appreciated murmurs, rubs, gallops. Pulmonary: His lungs are clear to auscultation bilaterally. Vascular: There is no carotid bruit. Neck: Has no thyromegaly. Lymph: He has no cervical lymphadenopathy. GI: His abdomen is soft, nontender, nondistended. He has a negative Bose sign. Extremities: Warm without significant edema. Skin is warm without rash. He does have some bruising particularly in his right arm. Neuro: He is grossly intact. Psych: He is able to answer questions but is obviously cognitively impaired. LABORATORIES: White blood cell count is 6, hematocrit is 37.1, platelet count is 107, his creatinine is 1.28. His procalcitonin is 7.09 from a high of 47.79 on the 2nd. Imaging CT scan and ultrasound of both are personally reviewed. ASSESSMENT AND PLAN: This is an 89-year-old man admitted with weakness and elevated procalcitonin who subsequently developed a leukocytosis which is now resolving. The question is whether or not this is related to his gallbladder. The patient's daughter reports no history of abdominal pain. The patient is nontender at this time. However, in an elderly patient, the physical exam can be notoriously unreliable in diagnosis and cholecystitis. I have reviewed the CT scan and it does indeed show some gallbladder wall thickening. However, I find CT scan also unreliable. Ultrasound is equivocal at best. Gallbladder wall thickness is less than 4 mm which is the typical cut off for cholecystitis. My suspicion is that his gallbladder is not the cause of his problems. However, I think it worthwhile to get a HIDA scan to be a little more definitive. To that end, I have ordered the HIDA scan. I have asked that he be made n.p.o. at midnight in case that comes back positive. If indeed it does, then I will certainly discuss cholecystectomy with him and his daughter.
--- NOTE | 2016-12-14 20:11 | PCM.PNMED ---
Subjective Date of Service Dec 14, 2016 Subjective No overnight event, patient vitals stable, continue be on Zosyn. Pro- calcitonin continue to drop by half each day Today, patient denies any new complaints. Patient sit upright, enjoying breakfast. He is alert and oriented 2. Daughter states that he is near baseline Exam Vital Signs Vital Sign - Last Date Time Temp Pulse Resp B/P Pulse Ox O2 Delivery O2 Flow Rate FiO2 12/14/16 18:26 36.4 83 18 116/64 98 Room Air Intake and Output 12/13/16 12/13/16 12/14/16 Cumulative From/Thru 15:00 23:00 07:00 12/10/16 13:37 - 12/14/16 06:09 Intake Total 0 ml 850 ml 5993 ml Output Total 300 ml 2075 ml Balance 0 ml 550 ml 3918 ml Intake Oral 0 ml 800 ml 2336 ml IV Total 50 ml 3657 ml Output Urine Total 300 ml 2075 ml # Voids 3 2 10 # Bowel Movements 2 4 Exam Gen: Sitting up comfortably on chair HEENT: PERRLA, Anicteric sclerae, moist conjunctivae, and no lid lag. Neck: supple, no JVD Cardio: Regular rate and rhythm with no murmurs, rubs, or gallops appreciated Pulm: b/l air sound, no crackles, wheezes, or rhonchi. Normal respiratory effort with no use of accessory muscles. Abd: positive bowel tone. Soft, nontender, nondistended. Extremities: No clubbing, cyanosis, edema, or lymphadenopathy appreciated. Skin: Normal temperature, turgor, and texture; no rash, ulcers, or subcutaneous nodules appreciated. Neuro: Cranial nerves grossly intact. moving equally on all four limbs. Psyc: alert and oriented when woken up. IVs and Medications Medications Reviewed: Medications were reviewed in detail Lab and Diagnostics Result Diagram: 12/14/1662912/14/16629 X-Rays, CTs and MRIs PROCEDURE: X-RAY CHEST ONE VIEW, PORTABLE ([id number]) INDICATIONS: CHEST PAIN TECHNIQUE: One view of the chest was acquired. COMPARISON: [facility], , CHEST 1VW (PORTABLE), 03/08/2011, 14:57. FINDINGS: Surgical changes and devices: Status post CABG procedure. A dual-lead cardiac pacer is stable. Lungs and pleura: No pleural effusions or pneumothorax. Lungs are clear. Mediastinum: Mediastinal contours appear normal. Heart size is normal. Bones and chest wall: No suspicious bony lesions. Overlying soft tissues appear unremarkable. IMPRESSION: No acute cardiopulmonary disease process. 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 Admitted for AMS. Leukocytosis, present on admission, active -- SIRS positive, Initial wbc 13.6 with left shift. UA without WBC, CRx clear. Vitals stable, no fever. no rash seen, no neck stiffness. -- Procalcitonin 13.56. strong concerns for bacteremia, endocarditis, possible malignancy -- ID Dr. Ferris consulted, CT-Abd showing thicken gallbladder. RUQ U/S ordered to further evaluate -- Broad spec abx: zosyn started 2/2 with procalcitonin decreasing by over 1/2. This suggestive of active infection per ID -- Abdominal ultrasound showed possible gallbladder thickening, supported by CT abdomen, echocardiogram unremarkable -- Blood culture negative x2days, redraw blood pending Possible cholecystitis, present on admission, active -- Imaging showed cholelithiasis with gallbladder thickening -- Surgery has been consulted, recommended HIDA scans Somnolence, acute --WIll continue to monitor, may need brain CT to evaluate if not improving. DDx , delirium, meningitis, bacteremia Elevated troponin of unknown significant, present on admission, stable -- initial trop 0.047, trended down to 0.038, no EKG changes -- Likely false positive in the setting of CKD -- Telemetry on chronic, stable CAD s/p CABG, hx of CHF, appeared mildly dry, continue IVF for now, continue aspirin/bb Atrial fibrillation, hx of Tachybrady syndrome, status post pacemaker placement , stable, used to be on AC, currently not anticoagulated due to bleeding risk. CKD, chronic condition which is improving since admission with volume repletion. History of bladder CA and anemia, stable Diabetes mellitus, lispro SS for now, held Glyburide to prevent hypoglycemia. Disposition: Possible discharge in 2 days. VTE Mechanical Devices: Intermittant Pneumatic CD Resuscitation Status: CPR: Attempt Resuscitation Attending Statement I saw and examined Mr. Torres along with Dr. Joseph. My findings and plans are as described above. Reza Mccullough MD [facility] H DO Dec 14, 2016 20:11 Kaylan Mccullough MD Dec 14, 2016 20:51
[2016-12-14] MEDS ORDERED: 0.9% Sodium Chloride 1,000 ML IV SCH (23:00)
[2016-12-15 00:41] VITALS: BP 148/71; PULSE 63; RESP 20; O2SAT 98
[2016-12-15 05:15] VITALS: BP 173/73; PULSE 69; RESP 20; O2SAT 96
[2016-12-15] MEDS: Piperacillin-Tazo 3.375 Gm Inj 3.375 GM in Dextrose 5% Minibag Plus 50 ML IV SCH (05:17)
[2016-12-15] MEDS ORDERED: MeTOProlol 1 mg/mL 5 mL Inj IVPUSH ONE (05:50)
[2016-12-15 06:42] VITALS: BP 143/68; PULSE 60
--- NOTE | 2016-12-15 06:52 | NUR ---
NOC/BP Pt had an episode of elevated bp, 173/73. MD was paged and ordered, metoprolol 5mg IV. Pt's BP went down to 143/68. Pt denies chest pain, sob, n/v and abd discomfort. Has been NPO after midnight. Pt has slept most of the night.
[2016-12-15 07:28] LABS: BASOPHILS % (AUTO) 0.5 % (0-3); EOSINOPHILS % (AUTO) 2.7 % (0-5); Mean Corpuscular Hemoglobin 29.7 pg (27.0-35.0); Mean Corpuscular Volume 89.4 fL (81-100); NEUTROPHILS % (AUTO) 51.2 % (40-74); Platelet Count 107 bil/L (150-400)
--- NOTE | 2016-12-15 08:09 | NUR ---
Off Unit: Patient transported to [place] dept via wheelchair accompanied by transporter @ approx 0800. Telemetry removed, cardiac technician notified. IV antibiotic/NS stopped per NM request due to need for IV access. Approx half of antibiotic infused up to that point.
--- NOTE | 2016-12-15 11:06 | PROG NOTE ---
[address] [address] PROGRESS NOTE PATIENT: TEDDY TAVERAS : 1925 MR#: [id number] ADMIT: 12/10/2016 JOB ID: [id number] DATE: 12/15/2016 SUBJECTIVE: The patient is seen in followup for his question of possible cholecystitis. He has remained afebrile and hemodynamically normal over the last 24 hours. This morning, he seen shortly after completion of his HIDA scan. He denies any abdominal pain. His belly was soft, nontender, nondistended. His white blood cell count remains normal at 5.9. The final read on the HIDA scan is pending, but I discussed it with the tech. His gallbladder was apparently visualized and had normal ejection fraction, thus ruling out cholecystitis. ASSESSMENT AND PLAN: This is an 89-year-old man admitted with weakness, who subsequently developed significant persistent leukocytosis and elevated procalcitonin suggestive of a serious infection. HIDA scan quite definitively ruled out cholecystitis as an active issue. His gallbladder appears to have normal function. Therefore, I do not recommend any surgical intervention. I am going to sign off at this time. Please feel free to call me if there are any concerns or questions.
[2016-12-15 11:40] VITALS: PULSE 82
[2016-12-15 11:42] VITALS: BP 110/62; PULSE 81; RESP 18; O2SAT 96
--- NOTE | 2016-12-15 12:07 | DRSVH ---
PROCEDURE: NM HIDA SCAN WITH CCK PHARMACEUTICAL: w mCi Tc-99m mebrofenin IV; 1.3 mcg CCK IV. INDICATIONS: 60 year-old male with cholelithiasis and gallbladder wall thickening seen on ultrasound and CT. TECHNIQUE: Following intravenous administration of Tc-99m mebrofenin, sequential anterior abdominal images were obtained. To evaluate the contractile response of the gallbladder in response to Cholecystokinin (CC K), sincalide (0.02 g/kg) was administered by slow intravenous infusion approximately 60 minutes aft er the administration of the radiopharmaceutical. Sequential imaging was continued for [address] the start of CCK infusion. Gallbladder ejection fraction was calculated. COMPARISON: [facility], US, ABDOMEN LTD, 12/13/2016, 7:56. [facility], CT, C T ABD WO VICENTE, 12/11/2016, 21:29. FINDINGS: Biliary scan: There is normal tracer uptake and excretion by the liver. There is normal visualizati on of the intrahepatic ducts, common bile duct, and gallbladder. There is normal tracer transit into the duodenum. CCK stimulation: There is normal contractile response of the gallbladder to CCK infusion. The calcu lated gallbladder ejection fraction is 69%; normal values are above 35%. It has been shown that any patient abdominal pain after CCK administration is related to the rate of CCK injection, rather than to any underlying gallbladder disease (Clinical Nuclear Medicine 2012; 37: 63-70. Journal of Nuclear Medicine 2014; 55: 1-9). IMPRESSION: 1. Normal filling of gallbladder. No evidence for acute cholecystitis. 2. Normal contractile response of gallbladder to CCK infusion. Dictated by: Tahira Rdz M.D. on 12/15/2016 at 12:01 Approved by: Tahira Rdz M.D. on 12/15/2016 at 12:06
--- NOTE | 2016-12-15 12:42 | NUR ---
Social Work-readiness for discharge: Data:EMR reviewed. Pt is on day 5 of hospitalization for N stemi per H&P. Pt is not medically stable, anticipate 1-2 days. PT has cleared pt for home with 24/7 care and HH Services. SW followed up with pt and daughter Alethea who provides 24/7 care. SW discussed recommendation of HH Services. Daughter is agreeable, HH choice list provided. Daughter states they have history with [facility] and she would like to use them again. SW called Dennys Дмитрий [phone] and provided him with referral for RN and PT ,access given. Pt's daughter to provide transport home at discharge. F2F in folder. SW will continue to follow. Assessment:Pt who would benefit HH services. Plan:Pt to discharge home with family to provide 24/7 care at home. Referral made to [facility] for RN and PT, access given. F2F in folder. SW will continue to follow. KAITLIN Hall
--- NOTE | 2016-12-15 12:46 | NUR ---
choice list provided. KAITLIN Hall
[2016-12-15] MEDS ORDERED: AMOX-366 PO (13:19)
--- NOTE | 2016-12-15 13:29 | PCM.DIMED ---
LUCINDA OAKES DO 12/15/16 1329: Discharge Instructions Date of Service Dec 15, 2016 Dates of Hospitalization Dec 10, 2016 at 17:38 Discharge Diagnosis Discharge Diagnosis 1. Leukocytosis Medication Instructions Take Augmentin twice a day for 5 days. Test Results The test checking function of the gallbladder was normal. Diet No restrictions Activity Home Health Phyical Therapy Call your provider Fever or Chills, Chest pain, Vomitting, Excessive diarrhea, Weakness (unilateral ) Patient Instructions You will be discharged home with home health physical therapy and 24-hour assistance from your family. Follow-up plan Follow up with your primary care providers office in 1-2 weeks. Follow-up Provider: Aly Duncan MD Follow-up with PCP in: 2 weeks Tra Nguyen DO 12/15/16 1638: Discharge Instructions Attending's Statement Read and agree LUCINDA OAKES DO Dec 15, 2016 13:29 Tra Nguyen DO Dec 15, 2016 16:38
--- NOTE | 2016-12-15 13:53 | NUR ---
Social Work-discharge: Data:EMR Reviewed. Pt is on day 5 of hospitalization for N stemi per H&P. Pt is medically stable for discharge today. SW informed Dennys Choe Ry [phone] of discharge and provided him with F2F and orders for RN and PT. PT recommending home with HH Services. SW updated pt's daughter and she is agreeable to plan. Daughter to provide transport home today. All updated and agreeable to plan. Assessment:Pt who would benefit from HH services. Plan:Pt to discharge home today via POV. Pt's daughter to provide 24/ care. F[facility]F [facility] All updated and agreeable to plan. KAITLIN Hall
--- NOTE | 2016-12-15 15:06 | NUR ---
Discharge: Family discharged to home @ approx 1450. IV d/c'd intact, telemetry removed, installation and service technician notified. Personal belongings sent home with patient. Reviewed new prescription, home medication list, d/c instruction, and follow up appointment. Verbalized understanding. Patient escorted to main entrance via wheelchair accompanied by FULL FASHIONED GARMENT KNITTER.
--- NOTE | 2016-12-16 16:49 | PCM.DC.MED ---
Discharge Summary Date of Service Dec 15, 2016 Dates of Hospitalization Date of Hospital Admission Dec 10, 2016 at 17:38 Date of Discharge: Dec 15, 2016 Providers: Admitting Physician: Gregg Gooden MD Primary Care Physician: Aly Duncan MD Attending Physician: Gregg Gooden MD Diagnosis at Time of Discharge Diagnosis at Time of Discharge 1. Leukocytosis Consultations [facility] infectious disease Pharm[facility] for vancomycin dosing Procedures XRay, CTs & MRIs PROCEDURE: X-RAY CHEST ONE VIEW, PORTABLE ([id number]) IMPRESSION: No acute cardiopulmonary disease process. 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 Normal filling of gallbladder. No evidence for acute cholecystitis. 2. Normal contractile response of gallbladder to CCK infusion. Dictated by: Tahira Rdz M.D. on 12/15/2016 at 12:01 Brief History History of present illness on admission: The patient is an 89 year old male with history of coronary artery disease s/p CABG, CHF, atrial fibrillation, chronic renal insufficiency, diabetes mellitus dyslipidemia, urinary retention, bladder CA, and anemia p/w generalized weakness. Patient was usual state of health until this morning, woke up with severe shaking and chills, with watery runny nose. Otherwise, patient was eating okay with good appetite, no cough or phlegm urinary discomfort, chest pain, palpitation, nausea, vomiting, abdominal pain, constipation-baseline, no diarrhea, joint pain, muscle pain, rash, sore throat. No episode of confusion per daughter. Although daughter recalls the patient had cold around [place] season, this has resolved. Recently patient has been very healthy, functional, walks with cane or walker, no weight loss. Patient received pneumococcus vaccine, flu shot this season. In ED, VS 110/54, 96, 27, 96% on %RA, afebrile, pt appeared non toxic, then pt became hypotensive to mid 90s, s/p 2liters of NS, labs were notable for elevated [id number], lactate 1.5, mild troponin, cr1.33, mg1.5, UA clean, CXR no acute findings. flu swab negative. pt received vanc/zosyn/doxycyclin/ gentamycin, aspirin 324mg Hospital Course Patient is an 89yom with MHx significant for coronary artery disease s/p CABG, CHF, atrial fibrillation, chronic renal insufficiency, diabetes mellitus dyslipidemia, urinary retention, bladder CA, and anemia complaints of generalized weakness. Admitted for AMS. Leukocytosis, present on admission, active -- SIRS positive, Initial wbc 13.6 with left shift. UA without WBC, CRx clear. Vitals stable, no fever. no rash seen, no neck stiffness. -- Procalcitonin 13.56. strong concerns for bacteremia, endocarditis, possible malignancy -- ID Dr. Ferris consulted, CT-Abd showing thicken gallbladder. RUQ U/S ordered to further evaluate -- Broad spec abx: zosyn started 2/2 with procalcitonin decreasing by over 1/2. This suggestive of active infection per ID -- Abdominal ultrasound showed possible gallbladder thickening, supported by CT abdomen, HIDA scan showing normal gallbladder function -- echocardiogram unremarkable for signs of endocarditis -- Blood culture negative x2days, redraw blood shows no growth. Unlikely cholecystitis, present on admission -- Imaging showed cholelithiasis with gallbladder thickening -- Surgery has been consulted, HIDA scan normal which rules out cholecystitis Somnolence with altered mental status, present on admission, resolved -- Patient has returned to baseline mental status and functional capacity -- DDx, delirium, meningitis, bacteremia Elevated troponin of unknown significant, present on admission, stable -- initial trop 0.047, trended down to 0.038, no EKG changes -- Likely false positive in the setting of CKD -- Patient monitored with Telemetry chronic, stable conditions that were monitored during hospital stay include CAD s/p CABG, hx of CHF, appeared mildly dry, IVF given, continued aspirin/beta nick Atrial fibrillation, hx of Tachybrady syndrome, status post pacemaker placement , stable, used to be on anticoagulation, currently not anticoagulated due to bleeding risk. CKD, chronic condition which is improving since admission with volume repletion. History of bladder CA and anemia, stable Diabetes mellitus, lispro SS for now, held Glyburide to prevent hypoglycemia. Exam Vital Signs (Last) Date Time Temp Pulse Resp B/P Pulse Ox O2 Delivery O2 Flow Rate FiO2 12/15/16 13:53 Room Air 12/15/16 11:42 36.5 81 18 110/62 96 Exam General: No acute distress, well-developed, well-nourished, appropriately interactive HEENT: Normocephalic, atraumatic. External ears without defect. Pupils equal, round, and reactive to light and accommodation. Anicteric sclerae, moist conjunctivae, and no lid lag. Oropharynx free of erythema and cobble stoning with moist mucosa. Neck: Supple with full range of motion. No jugular venous distension. No bruits. No lymphadenopathy or thyromegaly. Cardiovascular: Regular rate and rhythm with no murmurs, rubs, or gallops appreciated Pulmonary: Clear to auscultation bilaterally with no crackles, wheezes, or rhonchi. Normal respiratory effort with no use of accessory muscles. Abdomen: Bowel tones present. Soft, nontender, nondistended. No hepatosplenomegaly or masses appreciated. Extremities: No clubbing, cyanosis, edema, or lymphadenopathy appreciated. Skin: Normal temperature, turgor, and texture; no rash, ulcers, or subcutaneous nodules appreciated. Neurological: Cranial nerves grossly intact. Normal muscle strength, tone, and bulk. Reflexes, coordination, and sensory function within normal limits. No known gait impairment. Psychiatric: Normal mood and affect. Alert and oriented to person, place, and time. Test 12/10/16 17:22 12/10/16 23:08 12/11/16 06:14 12/12/16 06:35 Urine Color Yellow (YELLOW) Urine Appearance Clear (CLEAR,HAZY) Urine pH 5.5 (5.0-8.0) Urine Specific [place] 1.020 (1.003-1.035) Urine Protein Negativemg/dL (NEG,TRACE) Urine Glucose (UA) Negativemg/dL (NEGATIVE) Urine Ketones Negativemg/dL (NEGATIVE) Urine Occult Blood Negative (NEGATIVE) Urine Nitrite Negative (NEGATIVE) Urine Bilirubin Negative (NEGATIVE) Urine Urobilinogen Normalmg/dL (NORMAL) Urine Leukocyte Esterase Negative (NEGATIVE) Urine RBC 0-2/hpf (0-2) Urine WBC 0-5/hpf (0-5) Urine Epithelial Cells None/hpf (NONE-MOD) Urine Crystals None seen (NONE SEEN) Urine Bacteria None/hpf (NONE-FEW) Urine Hyaline Casts None/lpf (NONE) Urine Granular Casts None seen (NONE SEEN) Urine Waxy Casts None seen (NONE SEEN) Urine Red Blood Cell Casts None seen (NONE SEEN) Urine White Blood Cell Casts None seen (NONE SEEN) Urine Mucus None seen (None Seen) Urine Trichomonas None seen (NONE SEEN) Urine Yeast None (NONE SEEN) Urinalysis Comment None Urine Culture Reflexed Not indicated Troponin T 0.038ug/L (0.0-0.011) Phosphorus Level 2.7mg/dL (2.5-4.9) Lactic Acid Level 1.2mmol/L (0.4-2.0) C-Reactive Protein 7.3mg/dL (0.0-0.5) Test 12/13/16 05:30 12/15/16 07:11 Magnesium Level 1.7mg/dL (1.6-2.6) White Blood Count 5.9th/mm3 (3.8-10.1) Red Blood Count 4.45mil/mm3 (4.40-5.80) Hemoglobin 13.2g/dL (13.8-17.2) Hematocrit 39.8% (41.0-50.0) Mean Corpuscular Volume 89.4fL (81-100) Mean Corpuscular Hemoglobin 29.7pg (27.0-35.0) Mean Corpuscular Hemoglobin Concent 33.2% (32.0-37.0) Red Cell Distribution Width 13.7% (12.3-15.4) Platelet Count 107bil/L (150-400) Neutrophils (%) (Auto) 51.2% (40-74) Lymphocytes (%) (Auto) 34.6% (14-46) Monocytes (%) (Auto) 10.0% (4-12) Eosinophils (%) (Auto) 2.7% (0-5) Basophils (%) (Auto) 0.5% (0-3) Sodium Level 143mEq/L (134-144) Potassium Level 4.2mEq/L (3.5-5.2) Chloride Level 105mEq/L (97-108) Carbon Dioxide Level 23mmol/L (18-29) Blood Urea Nitrogen 25mg/dL (8-27) Creatinine 1.32mg/dL (0.76-1.27) Estimat Glomerular Filtration Rate 54mL/min (>59) Glucose Level 122mg/dL (60-99) Calcium Level 8.3mg/dL (8.5-10.1) Total Bilirubin 0.6mg/dL (0.0-1.2) Aspartate Amino Transf (AST/SGOT) 52U/L (0-50) Alanine Aminotransferase (ALT/SGPT) 35U/L (0-44) Alkaline Phosphatase 111U/L (25-160) Total Protein 5.7g/dL (6.4-8.4) Albumin 3.3g/dL (3.4-5.0) Procalcitonin 3.58ng/mL (0.00-0.08) Discharge Medications Discharge Medications Amoxicillin/Clav K 875-125 mg (Augmentin 875-125 mg) 1 Each Tablet 1 TABLET PO BID Prescribed by: CHANTALE OAKES DO Aspirin (Aspirin) 81 Mg Tablet 81 MG PO DAILY (Reported) Cholecalciferol (Vitamin D3) (Vitamin D3) 2,000 Unit Capsule 2,000 UNIT PO DAILY (Reported) Folic Acid (Folic Acid) 1 Mg Tablet 1 MG PO DAILY (Reported) Glyburide (Glyburide) 1.25 Mg Tablet 0.625 MG PO DAILY (Reported) Lisinopril (Lisinopril) 2.5 Mg Tablet 2.5 MG PO DAILY (Reported) Magnesium Amino Acid Chelate (Magnesium) 100 Mg Tablet 200 MG PO BID (Reported) Metoprolol Tartrate (Metoprolol Tartrate) 25 Mg Tablet 12.5 MG PO BID (Reported ) Multivitamin (Multi Vitamin Daily) 1 Each Tablet 1 EACH PO DAILY (Reported) As needed Ibuprofen (Ibuprofen) 200 Mg Capsule 200 MG PO BID PRN PRN For Pain (Reported) Miscellaneous Medications Inulin/Chromium Picolinate (Fiber Select Gummies Tab Chew) 1 Each Tab.chew 1 EACH PO (Reported) Additional med instructions Take Augmentin twice a day for 5 days. Followup Plan Disposition: Discharged home with home health PT and nursing Follow-up plan Follow up with your primary care providers office in 1-2 weeks. Discharge Diet: No restrictions Discharge Activity: Home Health Phyical Therapy Patient Instructions You will be discharged home with home health physical therapy and 24-hour assistance from your family. Follow-up Provider: Aly Duncan MD Follow-up with PCP in: 2 weeks Time spent 40 minutes Attending Statement I have seen and evaluated patient at bedside, in addition to directly supervising care provided by resident physician. I agree with above documentation. Chantale Oakes DO Dec 16, 2016 07:35 Tra Nguyen DO Dec 25, 2016 07:05
== END 2016-12-15 14:46 | disposition home health service (06) | DRG 814 ==
LOC: EDBD 13:20 → EDUNIT# 13:20 → SED 13:20 → MPC 17:38 → OBSVTOIN 17:38 → MPC 18:40
PROVIDERS: ADMIT Internal Medicine; ATTEND Internal Medicine
DX: D72.829 Elevated white blood cell count, unspecified (principal); G93.40 Encephalopathy, unspecified; R65.10 Systemic inflammatory response syndrome (SIRS) of non-infectious origin without acute organ dysfunction; I25.10 Atherosclerotic heart disease of native coronary artery without angina pectoris; E86.0 Dehydration; E11.9 Type 2 diabetes mellitus without complications; E78.5 Hyperlipidemia, unspecified; R33.9 Retention of urine, unspecified; I45.10 Unspecified right bundle-branch block; Z95.0 Presence of cardiac pacemaker; Z95.1 Presence of aortocoronary bypass graft; Z87.891 Personal history of nicotine dependence; Z85.51 Personal history of malignant neoplasm of bladder; Z79.82 Long term (current) use of aspirin; Z79.84 Long term (current) use of oral hypoglycemic drugs

== ENCOUNTER 2017-01-14 11:36 | Emergency (ER) | payer MEDICARE ==
[~2017-01-14] VITALS: Ht 165.1 cm; Wt 138.5 kg
[~2017-01-14 11:36] MED LIST changes: +AMOX-366 PO; +CHOL200047 PO; +IBUP200C PO; -SIMV20TA4 PO
[2017-01-14 11:51] VITALS: BP 140/70; PULSE 74; RESP 18; O2SAT 97
--- NOTE | 2017-01-14 12:04 | ED.REPORT ---
HPI-Rash / Abscess Date of Service Jan 14, 2017 ED Provider: History of Present Illness: rash started when he came home from the hospital, started in the groin. used vaseline to start out with, then witch rebecca. saw primary care no shingles, treated like diaper rash, used tinactin no help. primary care is nba. lives with daughter. Had iv antibiotics and a 5 day course of amoxicillin in the hospital. Nursing Notes Stated Complaint: RASH Chief Complaint: Skin Rash/Abscess Nursing Notes Reviewed: Yes Allergies: Coded Allergies: No Known Allergies (Verified Allergy, Unknown, 12/10/16) Scheduled Amoxicillin/Clav K 875-125 mg (Augmentin 875-125 mg) 1 Each Tablet 1 TABLET PO BID Aspirin (Aspirin) 81 Mg Tablet 81 MG PO DAILY Cholecalciferol (Vitamin D3) (Vitamin D3) 2,000 Unit Capsule 2,000 UNIT PO DAILY Folic Acid (Folic Acid) 1 Mg Tablet 1 MG PO DAILY Glyburide (Glyburide) 1.25 Mg Tablet 0.625 MG PO DAILY Lisinopril (Lisinopril) 2.5 Mg Tablet 2.5 MG PO DAILY Magnesium Amino Acid Chelate (Magnesium) 100 Mg Tablet 200 MG PO BID Metoprolol Tartrate (Metoprolol Tartrate) 25 Mg Tablet 12.5 MG PO BID Multivitamin (Multi Vitamin Daily) 1 Each Tablet 1 EACH PO DAILY Scheduled PRN Ibuprofen (Ibuprofen) 200 Mg Capsule 200 MG PO BID PRN PRN For Pain Miscellaneous Medications Inulin/Chromium Picolinate (Fiber Select Gummies Tab Chew) 1 Each Tab.chew 1 EACH PO General Time Seen by MD: 12:03 Chief Complaint Rash Hx Obtained From: Patient, Daughter Onset Occurred: More than a week ago... Symptom Duration: Since onset Past Medical History Past Medical History 1. Coronary artery disease, with CABG at [facility]. 2. Congestive heart failure. Postoperative. 3. Atrial fibrillation, now with chronic anticoagulation. 4. Chronic renal insufficiency with recent acute on chronic renal insufficiency. He is currently at baseline, creatinine 1.6. 5. Dyslipidemia. 6. Postoperative urinary retention. 7. History of bladder CA and anemia. 8. Diabetes mellitus 9. S/p pacemaker insertion Past Surgical History Pacemaker Skin cancer excision Bladder cancer surgery Reports: CABG Family History Noncontributory Smoking History Former Smoker Social History Alcohol Use: Denies alcohol use Drug Use: Denies drug use Other Social History: Good social support, Lives with children, Local resident Occupation lives with daughter 01/14/2017 Ambulatory Status Independent Review of Systems Basic Review of Systems : No dysuria, No frequency Hematologic: No bleeding, No bruising Psychiatric: Normal thought content Physical Exam Initial Vital Signs Vital Signs (First) Date Time Temp Pulse Resp B/P Pulse Ox O2 Delivery O2 Flow Rate FiO2 01/14/17 11:51 35.9 74 18 140/70 97 Room Air Initial VS: Reviewed, Vital signs normal Head / Eyes: Atraumatic, Normocephalic, PERRL ENT: Mucous membranes moist, Conjunctiva normal, No scleral icterus Neck: Supple, Non-tender, Full range of motion Respiratory: Breath sounds normal, Clear to auscultation, No respiratory distress Cardiovascular: Regular rate & rhythm, Heart sounds normal, Intact distal pulses Abdomen / GI: Soft, Non-tender, No guarding, No rebound, No distention Back: No CVA tenderness Lymphatic: No lymphadenopathy Extremities: Vascular intact, Neuro intact, No swelling, No tenderness Neurologic: Alert, Oriented, Nonfocal Psychiatric: Mood/affect normal, Behavior normal, Normal thought content General/Constitutional: Awake, Alert, No acute distress Appearance / Presentation: Positive: Frail Color / Condition: Positive: Rash present Rash / Lesion Notes: rash in groin is beef red with satelite lesions Head / Eyes: Atraumatic, Normocephalic, PERRL ENT: Atraumatic, Airway patent, Mucous membranes moist Respiratory / Chest: Atraumatic, Breath sounds NL, Breath sounds = bilat Cardiovascular: Heart rate NL, Regular rhythm, Heart sounds NL Interpretation & Diagnostics Lab Results Interpretation Result Diagram: 01/14/17 1245 01/14/17 1245 Test 01/14/17 12:45 White Blood Count 5.7th/mm3 (3.8-10.1) Red Blood Count 4.26mil/mm3 (4.40-5.80) Hemoglobin 12.7g/dL (13.8-17.2) Hematocrit 38.2% (41.0-50.0) Mean Corpuscular Volume 89.7fL (81-100) Mean Corpuscular Hemoglobin 29.8pg (27.0-35.0) Mean Corpuscular Hemoglobin Concent 33.2% (32.0-37.0) Red Cell Distribution Width 13.7% (12.3-15.4) Platelet Count 114bil/L (150-400) Neutrophils (%) (Auto) 54.4% (40-74) Lymphocytes (%) (Auto) 30.8% (14-46) Monocytes (%) (Auto) 7.7% (4-12) Eosinophils (%) (Auto) 6.2% (0-5) Basophils (%) (Auto) 0.4% (0-3) Sodium Level 137mEq/L (134-144) Potassium Level 4.6mEq/L (3.5-5.2) Chloride Level 101mEq/L (97-108) Carbon Dioxide Level 22mmol/L (18-29) Blood Urea Nitrogen 31mg/dL (8-27) Creatinine 1.16mg/dL (0.76-1.27) Estimat Glomerular Filtration Rate 63mL/min (>59) Glucose Level 108mg/dL (60-99) Calcium Level 8.7mg/dL (8.5-10.1) Total Bilirubin 0.4mg/dL (0.0-1.2) Aspartate Amino Transf (AST/SGOT) 27U/L (0-50) Alanine Aminotransferase (ALT/SGPT) 10U/L (0-44) Alkaline Phosphatase 99U/L (25-160) Total Protein 6.5g/dL (6.4-8.4) Albumin 4.1g/dL (3.4-5.0) Re-Eval/Medical Decision Med Decision/Clinical Course 89 year old male presents for evualation of rash that started in the groin after release from the hospital. Daughter has tried brief treatments, none of which has been helpful. Rash appears to be clasis diaper rash in the groin with hypersensitivity on the chest. Appears to be excerbated by itching Discharge & Departure Impression: Primary Impression: Renae infection Disposition: Home Patient Instructions: Diaper Rash (ED) Additional Instructions: The exam indicates a yeast infection. Your labs have been drawn and are pending. You are being provided a prescription for diflucan. Take it daily for 14 days. Please call before filling this prescription to make sure his labs are normal. Use a good moisturizer on the rash on the abdomen. Please follow with primary care. REturn with fever, vomiting or any concern. Referrals: Aly Duncan MD (PCP) EDSupervising Provider for APC: Javier Palomino DO copies to: Aly Duncan MD, Sue ARNP Jan 14, 2017 12:04
[2017-01-14 12:58] LABS: BASOPHILS % (AUTO) 0.4 % (0-3); EOSINOPHILS % (AUTO) 6.2 % (0-5); MONOCYTES % (AUTO) 7.7 % (4-12); Mean Corpuscular Hemoglobin 29.8 pg (27.0-35.0); Mean Corpuscular Volume 89.7 fL (81-100); NEUTROPHILS % (AUTO) 54.4 % (40-74); Platelet Count 114 bil/L (150-400)
[2017-01-14 14:10] VITALS: BP 145/64; O2SAT 97
== END 2017-01-14 14:14 | disposition home or self-care (01) ==
LOC: SED 11:36
DX: B37.2 Candidiasis of skin and nail (principal); I50.9 Heart failure, unspecified; I25.10 Atherosclerotic heart disease of native coronary artery without angina pectoris; I48.91 Unspecified atrial fibrillation; E78.5 Hyperlipidemia, unspecified; E11.22 Type 2 diabetes mellitus with diabetic chronic kidney disease; Z95.0 Presence of cardiac pacemaker; Z87.891 Personal history of nicotine dependence; Z85.828 Personal history of other malignant neoplasm of skin; Z85.51 Personal history of malignant neoplasm of bladder; Z95.1 Presence of aortocoronary bypass graft; Z79.82 Long term (current) use of aspirin; Z79.84 Long term (current) use of oral hypoglycemic drugs

== ENCOUNTER 2017-02-21 14:04 | Inpatient (IN) | payer MEDICARE ==
[~2017-02-21] VITALS: Ht 167.6 cm; Wt 63.4 kg
[2017-02-21 14:33] VITALS: BP 135/58; PULSE 82; RESP 25; O2SAT 96
--- NOTE | 2017-02-21 14:38 | ED.REPORT ---
HPI-Syncope Date of Service Feb 21, 2017 ED Provider: Javier Palomino DO The patient is an 89 year old male with history of coronary artery disease s/p CABG, congestive heart failure, atrial fibrillation s/p pacemaker, hyperlipidemia, chronic renal insufficiency, diabetes mellitus, bladder cancer, and anemia, who was brought to the emergency department by EMS after he had a syncopal episode prior to arrival. His states while eating breakfast he suddenly felt faint and passed out. He denies numbness, weakness, slurred speech , confusion, chest pain or shortness of breath. He started coughing a few days ago. Nursing Notes Stated Complaint: SYNCOPE Chief Complaint: General Complaint Nursing Notes Reviewed: Yes Allergies: Coded Allergies: No Known Allergies (Verified Allergy, Unknown, 12/10/16) Scheduled Amoxicillin/Clav K 875-125 mg (Augmentin 875-125 mg) 1 Each Tablet 1 TABLET PO BID Aspirin (Aspirin) 81 Mg Tablet 81 MG PO DAILY Cholecalciferol (Vitamin D3) (Vitamin D3) 2,000 Unit Capsule 2,000 UNIT PO DAILY Folic Acid (Folic Acid) 1 Mg Tablet 1 MG PO DAILY Glyburide (Glyburide) 1.25 Mg Tablet 0.625 MG PO DAILY Lisinopril (Lisinopril) 2.5 Mg Tablet 2.5 MG PO DAILY Magnesium Amino Acid Chelate (Magnesium) 100 Mg Tablet 200 MG PO BID Metoprolol Tartrate (Metoprolol Tartrate) 25 Mg Tablet 12.5 MG PO BID Multivitamin (Multi Vitamin Daily) 1 Each Tablet 1 EACH PO DAILY Scheduled PRN Ibuprofen (Ibuprofen) 200 Mg Capsule 200 MG PO BID PRN PRN For Pain Miscellaneous Medications Inulin/Chromium Picolinate (Fiber Select Gummies Tab Chew) 1 Each Tab.chew 1 EACH PO General Time Seen by Provider: 14:53 Chief Complaint Lost consciousness Syncope Description: First episode Hx Obtained From: Patient, Spouse, EMS Arrived By: Ambulance Onset Occurred: Just prior to arrival Symptom Duration: 1 - 15 minutes Severity: Current: No pain currently Severity: Maximum: No pain Recent Healthcare: No recent hospitalization Similar Sx Previous: No Past Medical History Past Medical History 1. Coronary artery disease, with CABG at [facility]. 2. Congestive heart failure. Postoperative. 3. Atrial fibrillation, now with chronic anticoagulation. 4. Chronic renal insufficiency with recent acute on chronic renal insufficiency. He is currently at baseline, creatinine 1.6. 5. Dyslipidemia. 6. Postoperative urinary retention. 7. History of bladder CA and anemia. 8. Diabetes mellitus 9. S/p pacemaker insertion Past Surgical History Pacemaker Skin cancer excision Bladder cancer surgery Reports: CABG Family History Noncontributory Smoking History Former Smoker Social History Alcohol Use: Denies alcohol use Drug Use: Denies drug use Other Social History: Good social support, Lives with children, Local resident Occupation lives with daughter 01/14/2017 Ambulatory Status Independent Review of Systems Respiratory: Reports: Non-productive cough, Denies: Shortness of breath Cardiovascular: Denies: Chest pain Neurologic: Reports: Change LOC, Syncope, Denies: Confusion, Focal weakness, Numbness, Slurred speech, Unable to speak Complete sys rev & neg: except as marked. Physical Exam Initial Vital Signs Vital Signs (First) Date Time Temp Pulse Resp B/P Pulse Ox O2 Delivery O2 Flow Rate FiO2 02/21/17 14:33 36.5 82 25 135/58 96 Room Air Initial VS: Reviewed Head / Eyes: Atraumatic, Normocephalic, PERRL ENT: Mucous membranes moist, Conjunctiva normal, No scleral icterus Neck: Supple, Non-tender, Full range of motion Abdomen / GI: Soft, Non-tender, No guarding, No rebound, No distention Lymphatic: No lymphadenopathy Upper Extremities: Vascular intact, Neuro intact, No swelling, No tenderness Skin: Warm, Dry, No cyanosis Psychiatric: Mood/affect normal, Behavior normal, Normal thought content General/Constitutional: Awake, Cooperative Slow to respond Respiratory / Chest: Breath sounds = bilat, No respiratory distress, No rales, No rhonchi, No wheezing Diminished Breath Sounds: Positive: Decreased bilateral (in the bases) Cardiovascular: Heart rate NL, Regular rhythm, Heart sounds NL, No gallop, No murmurs, No rubs, Cap refill not delayed, Peripheral circulation NL Lower Extremity / Pelvis / MS: Neurologic intact, Vascular intact Neurologic: Oriented X3, Speech NL, No motor deficits, No sensory deficits, Cerebellar NL, Memory NL Interpretation & Diagnostics Pacemaker interpretation shows no cause for syncope. Lab Results Interpretation Result Diagram: 02/21/17 1515 02/21/17 1515 Test 02/21/17 15:15 White Blood Count 7.5th/mm3 (3.8-10.1) Red Blood Count 4.55mil/mm3 (4.40-5.80) Hemoglobin 13.1g/dL (13.8-17.2) Hematocrit 40.9% (41.0-50.0) Mean Corpuscular Volume 89.9fL (81-100) Mean Corpuscular Hemoglobin 28.8pg (27.0-35.0) Mean Corpuscular Hemoglobin Concent 32.0% (32.0-37.0) Red Cell Distribution Width 14.1% (12.3-15.4) Platelet Count 218bil/L (150-400) Neutrophils (%) (Auto) 80.1% (40-74) Lymphocytes (%) (Auto) 9.8% (14-46) Monocytes (%) (Auto) 7.9% (4-12) Eosinophils (%) (Auto) 0.8% (0-5) Basophils (%) (Auto) 0.3% (0-3) Sodium Level 135mEq/L (134-144) Potassium Level 4.8mEq/L (3.5-5.2) Chloride Level 97mEq/L (97-108) Carbon Dioxide Level 24mmol/L (18-29) Blood Urea Nitrogen 19mg/dL (8-27) Creatinine 1.12mg/dL (0.76-1.27) Estimat Glomerular Filtration Rate 66mL/min (>59) Glucose Level 190mg/dL (60-99) Lactic Acid Level 1.1mmol/L (0.4-2.0) Calcium Level 9.2mg/dL (8.5-10.1) Magnesium Level 1.9mg/dL (1.6-2.6) Total Bilirubin 0.5mg/dL (0.0-1.2) Aspartate Amino Transf (AST/SGOT) 52U/L (0-50) Alanine Aminotransferase (ALT/SGPT) 64U/L (0-44) Alkaline Phosphatase 280U/L (25-160) Troponin T 0.020ug/L (0.0-0.011) Total Protein 7.3g/dL (6.4-8.4) Albumin 3.3g/dL (3.4-5.0) ECG Interpretation ECG Interpretation: Sinus rhythm with a rate of 76 RBBB Time: 15:00 Interpreted by: ED physician X-Ray Chest Interpretation Chest Xray Interpretation: IMPRESSION: No acute cardiopulmonary findings. Dictated by: Ivett Sanders M.D. on 02/21/2017 at 16:16 Interpretation / Wet Read by: Interpret - Radiologist CT Abd / Pelvis Interpretation IMPRESSION: 1. Distended gallbladder with thickened hyperemic-appearing wall and pericholecystic fluid suspicious for acute cholecystitis. This finding was discussed with Dr. Greenberg at 5:05 PM on 02/21/17. 2. Intermediate density left adrenal gland mass. Nonemergent adrenal mass protocol recommended to further characterize finding if clinically indicated. 3. 3 mm left basilar pulmonary nodule. Please see followup guidelines below. Note: Fleischner Society criteria for lung nodule followup. Nodule size (mm)Low-risk patientHigh-risk [id number] follow-up neededFollow-up at 12 mo; if no change, no further follow-up>[id number] CT at 12 mo; if no change, no further follow-up needed.Initial follow-up CT at 6-12 mo, then 18-24 mo if no change. >6-8Initial follow-up CT at 6-12 mo, then 18-24 mo if no change. Initial follow-up CT at 3-6 mo, then 9-12 mo and 24 mo if no change. >8Follow-up CT at 3, 9, 24 mo. Or PET and/or biopsy.Same as for low-risk pts. Non-solid (ground-glass) or partly solid nodules may require longer follow-up to exclude indolent adenocarcinoma. Dictated by: Ivett Sanders M.D. on 02/21/2017 at 16:58 Interpretation / Wet Read by: Interpret - Radiologist, Discussed w radiologist Re-Eval/Medical Decision Med Decision/Clinical Course Chief complaint syncope, patient has abnormal LFTs and left upper quadrant pain and a scan which is consistent with probable acute cholecystitis. IV Zosyn was given IV fluids are initiated. His troponin is mildly elevated it is unclear the etiology of this though it does not sound like he has acute coronary syndrome. His pacemaker was interrogated and heard the herbicide service sales representative from [employer], he had been alert for an episode of pacemaker mediated tachycardia however the recording function was not sat up on the device prior to being interrogated. It is unclear what the underlying rhythm was during his syncopal episode today and it does not sound like the pacemaker itself captured or recorded the event. Source of Hx: Old records, EMS, Family Re-Evaluation/Progress #1: Time of Eval: 16:15 Re-Evaluation/Progress Note: Rechecked the patient. He is tender in his RUQ on re-examination. Will order CT scan. Re-Evaluation/Progress #2: Time of Eval: 17:13 Re-Evaluation/Progress Note: Rechecked the patient. Discussed CT findings, diagnosis, and plan for admission. All questions were addressed. Consultation #1: Referral / Consult Name: Ivett Sanders MD Call Returned at: 17:07 Note: Spoke with the on-call radiologist about the patient's CT scan. Consultation #2: Referral / Consult Name: Adalberto De Dios MD Consulted With: Surgeon Call Returned at: 17:10 Supervisor Front: Agrees with eval, Agrees with plan Consultation #3: Referral / Consult Name: Aggie Pabon DO Consulted With: Hospitalist Requested Call at: 17:15 Call Returned at: 17:36 Supervisor Front: Will see patient, Agrees with eval, Agrees with plan, Accepts admit Counseled Regarding: Diagnosis, Lab results, Need for admission Discharge & Departure Impression: Primary Impression: Cholecystitis Additional Impression: Syncope Syncope type: unspecified Qualified Code: R55 - Syncope and collapse Disposition: ADMITTED TO HOSPITAL Discharge Condition All VS Reviewed: Yes Condition: Stable Referrals: Aly Duncan MD (PCP) Scribe Attestation Portions of this note were transcribed by Pilar Bridges. I, Dr. Palomino personally performed the history, physical exam and medical decision-making; I reviewed and confirmed the accuracy of the information in the transcribed note. Signed by: Nelli Sheehan, 02/21/2017 at 1800. copies to: Aly Duncan MD, Timothy S DO Feb 21, 2017 14:38 Pilar Bridges Feb 21, 2017 14:57
[2017-02-21] MEDS ORDERED: 0.9% Sodium Chloride 1,000 ML IV ONE (14:55)
[2017-02-21 15:29] LABS: BASOPHILS % (AUTO) 0.3 % (0-3); EOSINOPHILS % (AUTO) 0.8 % (0-5); MONOCYTES % (AUTO) 7.9 % (4-12); Mean Corpuscular Hemoglobin 28.8 pg (27.0-35.0); Mean Corpuscular Volume 89.9 fL (81-100); NEUTROPHILS % (AUTO) 80.1 % (40-74); Platelet Count 218 bil/L (150-400)
[2017-02-21 15:52] LABS: TROPONIN T 0.02 ug/L (0.0-0.011)
--- NOTE | 2017-02-21 16:18 | DRSVH ---
PROCEDURE: X-RAY CHEST ONE VIEW, PORTABLE ([id number]) INDICATIONS: cough, syncope TECHNIQUE: One view of the chest was acquired. COMPARISON: None. FINDINGS: Surgical changes and devices: Patient is status post median sternotomy and CABG. 2-lead cardiac pacer is unremarkable. Lungs and pleura: No pleural effusions or pneumothorax. Lungs are clear. Mediastinum: Mediastinal contours appear normal. Heart size is normal. Bones and chest wall: No suspicious bony lesions. Overlying soft tissues appear unremarkable. IMPRESSION: No acute cardiopulmonary findings. Dictated by: Ivett Sanders M.D. on 02/21/2017 at 16:16 Approved by: Ivett Sanders M.D. on 02/21/2017 at 16:16
[2017-02-21] MEDS ORDERED: Piperacillin-Tazo 3.375 Gm Inj 3.375 GM in Dextrose 5% Minibag Plus 50 ML IV ONE (17:05)
[2017-02-21 17:13] VITALS: BP 147/78; PULSE 75; RESP 17; O2SAT 98
--- NOTE | 2017-02-21 17:13 | DRSVH ---
PROCEDURE: CT ABDOMEN AND PELVIS WITH CONTRAST ([id number]) INDICATIONS: abnormal LFT TECHNIQUE: After the administration of intravenous contrast, 5 mm thick sections acquired from the diaphragm to the symphysis. 5 mm coronal and sagittal reformats were acquired. For radiation dose reduction, the following was used: automated exposure control, adjustment of mA and/or kV according to patient siz e. COMPARISON: [facility], CT, CHEST W/O CONTRAST, 03/07/2013, 9:34. [facility] , [place], ABDOMEN LTD, 12/13/2016, 7:56. [facility], CT, CT ABD WO CON, 12/11/2016, 21:29. FINDINGS: Image quality: Excellent. ABDOMEN: Lung bases: There is mild basilar atelectasis. No pleural effusion. No pericardial effusion. A 3 mm d iameter pulmonary nodule is present at the left lung base (series 5, image 8). Solid organs: Liver and spleen are normal in size and enhancement. Gallbladder is diffusely enlarge d. There is circumferential wall thickening and hyperemia of the wall. There is pericholecystic fluid present. Biliary system is non dilated. Pancreas enhances normally. No right adrenal nodules. Int ermediate density left adrenal gland mass is redemonstrated. Kidneys demonstrate normal size and enha ncement, without hydronephrosis. Peritoneum and bowel: Bowel loops demonstrate normal wall thickness and caliber. The appendix is no t visualized; however there is no discrete right lower quadrant fluid or fat stranding to suggest acu te appendicitis. No free fluid or air. Nodes and vessels: No retroperitoneal or mesenteric adenopathy by size criteria. The fusiform dilata tion of the infrarenal abdominal aorta is redemonstrated measuring up to 3.3 cm in axial diameter. De nse atheromatous calcifications are present throughout the aorta and iliac arteries. Miscellaneous: No ventral hernias. PELVIS: Genitourinary: Bladder wall thickness is normal. Miscellaneous: No inguinal hernias or adenopathy. Bones: No suspicious bony lesions. No vertebral body compression fractures. Severe degenerative ch anges are present throughout the lumbar spine. IMPRESSION: 1. 1. Distended gallbladder with thickened hyperemic-appearing wall and pericholecystic fluid suspicious for acute cholecystitis. This finding was discussed with Dr. Greenberg at 5:05 PM on 02/21/17. 2. Intermediate density left adrenal gland mass. Nonemergent adrenal mass protocol recommended to fur ther characterize finding if clinically indicated. 3. 3 mm left basilar pulmonary nodule. Please see followup guidelines below. Note: Fleischner Society criteria for lung nodule followup. Nodule size (mm)Low-risk patientHigh-risk [id number] follow-up neededFollow-up at 12 mo; if no roberts e, no further follow-up>[id number] CT at 12 mo; if no change, no further follow-up needed.Initial f ollow-up CT at 6-12 mo, then 18-24 mo if no change. >6-8Initial follow-up CT at 6-12 mo, then 18-24 mo if no change. Initial follow-up CT at 3-6 mo, then 9-12 mo and 24 mo if no change. >8Follow-up CT at 3, 9, 24 mo. Or PET and/or biopsy.Same as for low-risk pts. Non-solid (ground-glass) or partly solid nodules may require longer follow-up to exclude indolent adenocarcinoma. Dictated by: Ivett Sanders M.D. on 02/21/2017 at 16:58 Approved by: Ivett Sanders M.D. on 02/21/2017 at 17:11
[2017-02-21] MEDS: 0.9% Sodium Chloride 1,000 ML IV SCH ×2 (17:53→18:45)
[2017-02-21] MEDS ORDERED: Alum-Mag Hydrox-Simeth 30 mL Suspension PO PRN ×2 (17:55→18:25)
[2017-02-21] MEDS ORDERED: Ondansetron 2 mg/mL 2 mL Inj IVPUSH PRN ×2 (17:55→18:25)
[2017-02-21 18:05] VITALS: BP 159/77; PULSE 71; RESP 19; O2SAT 98
[2017-02-21 18:21] VITALS: BP 159/77; PULSE 71; RESP 19; O2SAT 98
[2017-02-21] MEDS ORDERED: Polyethylene Glycol (PEG) 17 Gm Powder PO PRN (18:25)
[2017-02-21 18:31] VITALS: BP 185/84; PULSE 69; RESP 20; O2SAT 96
--- NOTE | 2017-02-21 18:35 | NUR ---
Admit Pt ad9 Addendum: 02/21/17 at 1837 by KIMBERLY LARRY RN Admitted to floor. Pt denies pain. Pt is oriented to some information about himself (his name, his address) but cannot remember his birthday. Pt is not oriented to place, time, and situation. [place] alarm in place. IV fluids will be restarted. Bed locked in low position and call light within reach. Pass off will be given to NOC shift.
[2017-02-21 18:37] VITALS: BP 148/86
--- NOTE | 2017-02-21 18:55 | PCM.CONPHA ---
Subjective Date of Service: Feb 21, 2017 Requesting Provider: Aggie Pabon DO Reason for Pharmacy Consult: Anticoagulation Management Objective Vital Signs Date Time Temp Pulse Resp B/P Pulse Ox O2 Delivery O2 Flow Rate FiO2 02/21/17 18:37 148/86 02/21/17 18:31 36.5 69 20 185/84 96 Room Air 02/21/17 18:21 36.5 71 19 159/77 98 Room Air 02/21/17 18:05 71 19 159/77 98 Room Air 02/21/17 17:13 75 17 147/78 98 Room Air 02/21/17 14:33 36.5 82 25 135/58 96 Room Air Weight (Kilograms): 63.400 Height (Feet): 5 Height (Inches): 6.00 Test 02/21/17 15:15 White Blood Count 7.5th/mm3 (3.8-10.1) Red Blood Count 4.55mil/mm3 (4.40-5.80) Hemoglobin 13.1g/dL (13.8-17.2) Hematocrit 40.9% (41.0-50.0) Mean Corpuscular Volume 89.9fL (81-100) Mean Corpuscular Hemoglobin 28.8pg (27.0-35.0) Mean Corpuscular Hemoglobin Concent 32.0% (32.0-37.0) Red Cell Distribution Width 14.1% (12.3-15.4) Platelet Count 218bil/L (150-400) Neutrophils (%) (Auto) 80.1% (40-74) Lymphocytes (%) (Auto) 9.8% (14-46) Monocytes (%) (Auto) 7.9% (4-12) Eosinophils (%) (Auto) 0.8% (0-5) Basophils (%) (Auto) 0.3% (0-3) Prothrombin Time 10.7sec (8.1-12.5) Prothromb Time International Ratio 1.00ratio Sodium Level 135mEq/L (134-144) Potassium Level 4.8mEq/L (3.5-5.2) Chloride Level 97mEq/L (97-108) Carbon Dioxide Level 24mmol/L (18-29) Blood Urea Nitrogen 19mg/dL (8-27) Creatinine 1.12mg/dL (0.76-1.27) Estimat Glomerular Filtration Rate 66mL/min (>59) Glucose Level 190mg/dL (60-99) Lactic Acid Level 1.1mmol/L (0.4-2.0) Calcium Level 9.2mg/dL (8.5-10.1) Magnesium Level 1.9mg/dL (1.6-2.6) Total Bilirubin 0.5mg/dL (0.0-1.2) Aspartate Amino Transf (AST/SGOT) 52U/L (0-50) Alanine Aminotransferase (ALT/SGPT) 64U/L (0-44) Alkaline Phosphatase 280U/L (25-160) Troponin T 0.020ug/L (0.0-0.011) Total Protein 7.3g/dL (6.4-8.4) Albumin 3.3g/dL (3.4-5.0) Lipase 41U/L (13-60) Assessment/Plan Assessment/Plan Enoxaparin per Rx Indication: DVT prophylactic CKD, SCR 1.12 Will dose 40mg daily, per protocol Demian Romero PharmD Feb 21, 2017 18:55
--- NOTE | 2017-02-21 19:03 | PCM.HPMED ---
Subjective Date of Service Feb 21, 2017 Primary Provider: Admitting Physician: Aggie Pabon DO Primary Care Physician: Aly Duncan MD Attending Physician: Aggie Pabon DO Allergies Coded Allergies: No Known Allergies (Verified Allergy, Unknown, 12/10/16) PMH Social History Hx Alcohol Use: No Hx Substance Use: No Hx Tobacco Use: Yes (Quit 22 years ago) Smoking Status: Former Smoker Exam Vital Signs Vital Sign - Last Date Time Temp Pulse Resp B/P Pulse Ox O2 Delivery O2 Flow Rate FiO2 02/21/17 18:37 148/86 02/21/17 18:31 36.5 69 20 96 Room Air Lab and Diagnostics Result Diagram: 02/21/17 1515 02/21/17 1515 Assessment & Plan cc: Syncope HPI: Patient is an 89-year-old male who presented from home with his family with a complaint of syncope. The patient was home with his daughter and having coffee and then started to slump over in his chair and lost consciousness for about a minute and a half. The daughter immediately called 911 and EMS came and stated the patient vital signs were stable and his blood glucose were normal. The patient did have his pacemaker interrogated while in the ED and it was normal. The patient was brought to the emergency room and CT scan was negative however patient was complaining of some abdominal pain and was noted to have acute cholecystitis. Surgery was consulted from the ED and at this time the patient will be treated with antibiotics. Patient does have a history of dementia and his daughter was the one who provided the history and also witnessed the syncopal episode. Patient complains of abdominal pain but denies any chest pain, nausea, vomiting, diarrhea, shortness of breath. 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 Please see HPI for pertinent positives, all other systems are negatives. Physical Exam: GEN: Patient was awake, alert, responding appropriately to questions HEENT: Pupils equal round and reactive to light, extraocular eye muscles intact , Neck soft supple, trachea midline, nomocephalic/atraumatic CV: +S1/S2, regular rate and rhythm, no murmurs auscultated Respiratory: CTAB, no wheezes, rales, rhonchi GI: +bowel sounds x4, soft, compressible, nontender to palpation EXT: no clubbing, cyanosis, edema Neuro: Cranial nerves II-XII grossly intact Psych: mood and affect were appropriate Assessment and Plan 89-year-old male with syncope and abdominal painin Acute cholecystitis -Continue Zosyn -Gen. surgery consulted (Dr. De Dios) -Clear liquid diet -Nothing by mouth at midnight -Follow up labs in the morning Elevated lipase and liver enzymes -Most likely secondary to the acute cholecystitis -Continue to monitor Syncope -Pacemaker interrogated no signs of activity everything is currently operational and normal ([facility] [facility] interrogated the pacemaker) -Find out if pacemaker is MRI compatible if not consider CT angio instead -Follow troponins -Follow up echo History of heart disease and previous [place] with Elevated troponins -Trend troponins -Continue aspirin -Continue metoprolol Diabetes -Hold glyburide as this may also be a contributing factor to the patient's syncope -Insulin sliding scale -Accu-Cheks before meals and at bedtime Hypertension -Currently controlled -Continue lisinopril and metoprolol Dementia -Currently stable History of bladder cancer currently stable Code Status: Full code DVT prophylaxis: SCDs and Lovenox Diet: Clear liquids for today and by mouth at midnight Disposition: Patient's family is very adamant that the patient is a full code at this time. However the patient's family is very hesitant to take the patient to surgery. Patient will most likely stay greater than 2 midnights. Power of Power Equipment Technology Instructor: Lilli Lanre (Daughter) [phone] Resuscitation Status: CPR: Attempt Resuscitation Limited Interventions: Compressions Time spent greater than 1 hour Aggie Pabon DO Feb 21, 2017 19:03
[2017-02-21] MEDS ORDERED: Glucose 40% Oral Gel 15 Gm Tube PO PRN (19:05)
--- NOTE | 2017-02-21 19:15 | PCM.ADCARE ---
Advance Care Planning Note Purpose of Encounter: To discuss goals of care and CODE STATUS Parties in Attendance: The patient, patient's daughter Lilli De Dios, patient's son Dirk Torres, Dr. Pabon Decisional Capacity: The patient is currently demented and his daughter Lilli De Dios is the power of director enterprise systems Plan: The patient's current condition and diagnoses were explained in detail to the patient's children and at this time they are very adamant that they want their father to continue to be full code. They are in agreement with CPR, antibiotics , IV fluids, and intubation with mechanical ventilation. CODE STATUS: Full code Time Spent Adv.Care Plannin minutes Aggie Pabon DO Feb 21, 2017 19:15
[2017-02-21] MEDS: Insulin LISPRO 300 Unit/3 mL Inj SUBQ SCH (22:00)
[2017-02-22 00:33] VITALS: BP 144/73; PULSE 66; RESP 16; O2SAT 96
[2017-02-22] MEDS: 0.9% Sodium Chloride 1,000 ML IV SCH ×6 (03:53→23:53)
--- NOTE | 2017-02-22 05:15 | CONS ---
[address] [address] CONSULTATION REPORT PATIENT: TEDDY TAVERAS : 1925 MR#: [id number] ADMIT: 02/21/2017 JOB ID: [id number] DATE OF SERVICE: 02/21/2017 CHIEF COMPLAINT: Possible cholecystitis. HISTORY OF PRESENT ILLNESS: The patient is an 89-year-old male, who presented to the emergency department today due to a syncopal episode at home. Workup in the emergency department today demonstrated some abnormalities of his LFTs, which triggered a CT scan of the abdomen and pelvis by the ED physician. This demonstrated a distended gallbladder with thickened, hyperemic-appearing wall and pericholecystic fluid suspicious for acute cholecystitis. The patient was recently hospitalized in December of this year, and there was a question back in December of this year whether his gallbladder was an issue. General Surgery was consulted, and Dr. Bridges saw the patient on December 14. A HIDA scan was ordered at that time and it showed normal filling of the gallbladder. The patient did have an ultrasound on December 13 that demonstrated cholelithiasis with mild gallbladder wall thickening. A CT scan in December showed similar findings. The patient does have dementia, so a lot of the history is obtained from family members. There was some mentioning of some abdominal cramping this past week and some constipation, but the patient has dementia and is unreliable in history or on exam. PAST MEDICAL HISTORY: CAD, status post CABG, pacemaker insertion, dementia, diabetes, history of CHF, atrial fibrillation, chronic renal disease, spinal stenosis, bladder cancer, status post surgery. MEDICATIONS AT HOME: Include amoxicillin, baby aspirin, glyburide, lisinopril, magnesium, metoprolol, folic acid. ALLERGIES: None. SOCIAL HISTORY: The patient lives on [address]. He does have a son and daughter. REVIEW OF SYSTEMS: Unable to be achieved with the patient, but there was some mentioning of abdominal cramping and constipation, and the syncopal episode to date. PHYSICAL EXAMINATION: The patient is currently on the emergency department [facility], in no acute distress. His BMI is not recorded. His temperature is 36.5, blood pressure 147/78, pulse is 75, respirations 17. Head is normocephalic, atraumatic. There is no scleral icterus. Neck is supple. Heart is regular. Lungs are clear. Abdomen is mildly obese but it is nontender. There is no focal findings on the right upper quadrant on palpation. There is no epigastric tenderness on exam. Extremities shows no clubbing and no cyanosis. Neurologically, the patient is awake, he does speak, but I am not sure how much of it is from dementia. LABORATORY EXAMINATION: Today, shows a white blood count of 7.5, hematocrit 40.9, platelet count is 218. Sodium is 135, potassium 4.8, creatinine 1.12, total bilirubin 0.5, AST 52, ALT 64, and alkaline phosphatase is 280. 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 The patient had similar findings back in December of this year. However, he did have a normal HIDA scan. The patient's family members are concerned of his age and his comorbid conditions, and are worried about him having surgery. The patient is currently being admitted to the hospitalist service and should be started on IV antibiotics. I do recommend getting a HIDA scan on Thursday. If his HIDA scan shows nonvisualization of the gallbladder, then I would recommend either proceeding to cholecystectomy or a percutaneous drain of the gallbladder if he is not surgically fit. EDY
[2017-02-22 06:29] VITALS: BP 150/65; PULSE 69; RESP 16; O2SAT 97
--- NOTE | 2017-02-22 07:20 | NUR ---
activity pt has denied any pain this shift. he has been incontinent of urine, wearing a brief. he has a red irritated scrotum and staff has been ensuring that he is clean dry and has barrier cream on. he is alert and oriented to self only. he is mostly pleasantly confused but can be combative during care. pt refused AM labs, he was startled awake and became combative, will try again when patient is more awake. care continues.
[2017-02-22] MEDS: Insulin LISPRO 300 Unit/3 mL Inj SUBQ SCH ×4 (07:35→21:03)
[2017-02-22 07:59] VITALS: BP 144/78; PULSE 67; RESP 20; O2SAT 94
--- NOTE | 2017-02-22 09:01 | PCM.PNSURG ---
Subjective Visit Information: Reason for Visit Acute Colleen, Syncope Surgery/Surgery Date Post-Op Day # Date of Admission: Feb 21, 2017 at 17:48 Hospital Day # Subjective: no n/v noted overnight, sleeping currently Objective Objective Sleeping in bed Abd: hard to interpret exam, no obvious tenderness with palpation Vital Sign- Last 8 Hours Date Time Temp Pulse Resp B/P Pulse Ox O2 Delivery O2 Flow Rate FiO2 02/22/17 07:59 36.8 67 20 144/78 94 Room Air 02/22/17 06:29 36.7 69 16 150/65 97 Room Air Intake and Output- Last 8 Hour 02/22/17 Cumulative From/Thru 07:00 02/21/17 14:33 - 02/22/17 06:49 Intake Total 236 ml 1236 ml Balance 236 ml 1236 ml Intake Oral 236 ml 236 ml IV Total 1000 ml # Voids 2 2 Result Diagram: 02/21/17 1515 02/21/17 1515 Assessment & Plan Impression 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 Resuscitation Status: CPR: Attempt Resuscitation Limited Interventions: Compressions Adalberto De Dios MD Feb 22, 2017 09:01
[2017-02-22 10:11] LABS: BASOPHILS % (AUTO) 0.4 % (0-3); EOSINOPHILS % (AUTO) 1.5 % (0-5); MONOCYTES % (AUTO) 7.8 % (4-12); NEUTROPHILS % (AUTO) 70.2 % (40-74); Platelet Count 214 bil/L (150-400)
[2017-02-22 10:31] LABS: TROPONIN T 0.028 ug/L (0.0-0.011)
--- NOTE | 2017-02-22 11:48 | NUR ---
ACTIVITY/GI Patient is alert and oriented X 1 only. Confused. He has been cooperative with his care at this time. Denies pain. Patient was started on clear liquids. Tolerating it well. Denies nausea. No emesis noted. Denies SOB. Barrier cream applied over his buttocks and scrotal area. Turned and repositioned. Patient is scheduled for a HIDA scan in the morning and his son is aware of this. Per his son patient transfers via wheelchair from the bed to the bathroom. He does not ambulate per his son.
[2017-02-22] MEDS: Piperacillin-Tazo 3.375 Gm Inj 3.375 GM in Dextrose 5% Minibag Plus 50 ML IV SCH (12:30)
--- NOTE | 2017-02-22 13:06 | PCM.PNMED ---
Subjective Date of Service Feb 22, 2017 Subjective Patient was seen and examined at bedside today. Patient denies any chest pain, shortness of breath, nausea, vomiting, diarrhea. Patient was little lethargic this morning however he did grimace on palpation of the abdomen that seemed to be improved compared to yesterday. Overnight events: Patient was a little combative overnight and needed significant redirection. Patient seems to be resting comfortably currently. Exam Vital Signs Vital Sign - Last Date Time Temp Pulse Resp B/P Pulse Ox O2 Delivery O2 Flow Rate FiO2 02/22/17 07:59 36.8 67 20 144/78 94 Room Air Intake and Output 02/21/17 02/21/17 02/22/17 Cumulative From/Thru 15:00 23:00 07:00 02/21/17 14:33 - 02/22/17 06:49 Intake Total 1000 ml 236 ml 1236 ml Balance 1000 ml 236 ml 1236 ml Intake Oral 236 ml 236 ml IV Total 1000 ml 1000 ml # Voids 2 2 Exam Physical Exam: GEN: Patient was asleep but somewhat arousable, HEENT: Pupils equal round and reactive to light, extraocular eye muscles intact , Neck soft supple, trachea midline, nomocephalic/atraumatic CV: +S1/S2, regular rate and rhythm, no murmurs auscultated Respiratory: CTAB, no wheezes, rales, rhonchi GI: +bowel sounds x4, soft, compressible, patient would grimace with palpation of the abdomen EXT: no clubbing, cyanosis, edema Skin: Fragile and thin, warm, dry, and intact Psych: mood and affect were lethargic IVs and Medications Medications Reviewed: Medications were reviewed in detail Lab and Diagnostics Result Diagram: 02/22/17 1002 02/22/17 1002 Assessment & Plan 89-year-old male with syncope and abdominal painin Acute cholecystitis -Continue Zosyn -Gen. surgery following (Dr. De Dios) -Clear liquid diet -Follow up labs in the morning Elevated lipase and liver enzymes -Most likely secondary to the acute cholecystitis -AST and ALT improving -Continue to monitor Syncope -Pacemaker interrogated no signs of activity everything is currently operational and normal ([facility] [facility] interrogated the pacemaker) -CT angiogram of the head -Troponins are mildly elevated but this seems to be the patient's baseline -Follow up echo History of heart disease and previous [place] with Elevated troponins -Troponins most likely elevated secondary to demand ischemia (most likely chronic) -Continue aspirin -Continue metoprolol Diabetes -Continue to hold glyburide as patient's blood glucoses within normal limits -Insulin sliding scale -Accu-Cheks before meals and at bedtime Hypertension -Currently controlled -Continue lisinopril and metoprolol Dementia -Currently stable Physical deconditioning (present on admission) -PT and OT evaluation History of bladder cancer currently stable Code Status: Full code DVT prophylaxis: SCDs and Lovenox Diet: Clear liquids for today and by mouth at midnight Disposition: The patient's acute cholecystitis and elevated liver enzymes seem to be improving. We will continue to treat the patient with antibiotic therapy and continue to monitor his progress. We will follow-up with the CT angiogram as the patient's pacemaker is not compatible with an MRI at this time to look for any further signs of possible CVA which could have contributed to the patient's syncope. The case was discussed with Dr. De Dios (of general surgery). The patient's son Dirk was in the room today and agrees with the current plan. Power of Manager Corporate Strategy: Lilli De Dios (Daughter) [phone] Resuscitation Status: CPR: Attempt Resuscitation Limited Interventions: Compressions Aggie Pabon DO Feb 22, 2017 13:06
--- NOTE | 2017-02-22 14:44 | DRSVH ---
[facility] [address] [place] [address] Echocardiogram Report Name: TEDDY TAVERAS WStudy Date: 02/22/2017 Height: 66 in Hospital Exam Location: [facility] Weight: 140 lb Gender: Male BSA: 1.7 m2 : 1925 Age: 89 yrs BP: 150/65 mmHg Reason For Study: SYNCOPE Ordering Physician: Performed By: Lula Hugo Referring Physician: Ervin Duncan Interpretation Summary The left ventricle is normal in size, wall thickness, and systolic function without any focal wall motion abnormalities with the ejection fraction visually estimated to be 60-65%. The E/A ratio is reversed, suggesting impaired early relaxation of the left ventricle or a reduced preload state. There has been no significant change since the previous study. The right ventricle is borderline dilated but right ventricular systolic function appears normal and is likely unchanged compared to the previous study. The right ventricular systolic pressure is estimated at 39 mmHg assuming a right atrial pressure of 3 mm Hg and is slightly higher compared to the previous study. Both atria are normal in size. There is mild to moderate tricuspid regurgitation that is more prominent compared to the previous study. Otherwise, there is no other significant valvular heart disease. Procedure: A two-dimensional transthoracic echocardiogram with color flow and Doppler was performed. The study quality was technically adequate. Comparison is made with the echocardiogram of 12-12-2016. The patient has a paced rhythm. Left Ventricle: The left ventricle is normal in size, wall thickness, and systolic function without any focal wall motion abnormalities. The ejection fraction is estimated to be 60-65%. The E/A ratio is reversed, suggesting impaired early relaxation of the left ventricle or a reduced preload state. There has been no significant change since the previous study. Right Ventricle: There is a pacemaker lead in the right ventricle. The right ventricle is borderline dilated. The right ventricular systolic function is normal. This is unchanged compared to the previous study. Atria: Both atria are normal in size. There is no Doppler evidence for an atrial septal defect. Mitral Valve: There is mild to moderate mitral annular calcification. There is mild calcification extending into the subvalvular apparatus. The mitral valve leaflets are slightly calcified. There is trace mitral regurgitation. This is unchanged compared to the previous study. Aortic Valve: The aortic valve is trileaflet. The aortic valve opens well. The aortic valve is slightly calcified. There is trace aortic regurgitation. Tricuspid Valve: The tricuspid valve leaflets are thin and pliable. There is mild to moderate tricuspid regurgitation. The right ventricular systolic pressure is estimated at 39 mmHg assuming a right atrial pressure of 3 mm Hg. This is more prominent compared to the previous study. Pulmonic Valve: The pulmonic valve is not well seen, but is grossly normal. There is no other significant valvular heart disease. Great Vessels: The aortic root is normal size. The dimensions of the ascending aorta are normal. The pulmonary artery is not well visualized, but is probably normal size. The IVC is of normal diameter and collapses greater than 50% with a sniff. This suggests a low right atrial pressure of 3 mm Hg. Pericardium/ Pleura There is no pericardial effusion. There is no pleural effusion. MMode/2D Measurements & Calculations LVIDd: 4.7 cm LA dimension: 3.6 cm RA long axis LVOT diam: 2.2 cm LVIDs: 2.5 cm AoV Opening FS: 46.5 % LA A2 area: 18.4 cm RA area EPSS: 0.91 cm LA A4 area: 18.2 cm Ao root diam IVSd: 0.86 cm LA length (vol) : 16.6 cm LVPWd: 0.96 cm RA vol Aortic Jxn: 2.8 cm LA vol: 52.8 ml : 46.0 ml asc Aorta Diam LA vol index RA : 26.8 mm/ Ao Arch Diam (Prox RVDd major Trans): 2.1 cm IVC diam: 1.8 cm : 5.8 cm LV lara. diameter/BSA LV sys. diameter/BSA RVD2 (mid) (cm/m^2): 2.7 (cm/m^2): 1.5 : 4.2 cm Doppler Measurements & Calculations Ao V2 max MV E max geoff MV E/A: 0.90 TR max geoff : 116.3 cm/sec : 96.0 cm/sec Med Peak E' Geoff : 301.2 cm/sec Ao max PG MV A max geoff TR max PG : 5.4 mmHg : 107.3 cm/sec E/E' med: 9.7 : 36.3 mmHg Ao mean PG MV P1/2t: 64.7 msec Lat Peak E' Geoff PA V2 max : 69.8 cm/sec LVOT Max Geoff E/E' lat: 5.9 PA mean PG : 92.5 cm/sec E/e' average: 7.8 SHAHRZAD(I,D): 3.3 cm Pulm A Revs Dur PA Accel Time sev ratio : 0.12 sec MV A dur: 0.14 sec MV dec time MV P1/2t max geoff Ao V2 mean LV V1 max PG : 0.22 sec : 80.5 cm/sec Ao V2 VTI: 24.1 cm LV V1 VTI MVA(P1/2t): 3.4 cm2 : 20.8 cm SHAHRZAD(V,D): 3.0 cm2 PA V2 mean SHAHRZAD indexed to BSA Pulm A Revs Dur - MV : 53.6 cm/sec (cm^2/m^2): 1.9 A Dur: -0.04 msec Reading Physician:02:43 PM
--- NOTE | 2017-02-22 15:07 | NUR ---
Social Work- Initial Assessment: Data & Assessment: See Initial Assessment. EMR reviewed. Patient is a 89 y/o patient that admitted for Syncope and acute blanca per H&P. SW met with patient and patient's daughter at bedside to complete initial assessment, discuss discharge planning and initial assessment complete. Patient NOK/DPELMER is Alethea Torres. Patient's PCP is Dr. Aly Duncan and patient's insurance is [employer] [facility] Medicare. Patient has no LTC and no VA benefits. Patient does not have a re-admit score at this time. Patient lives at home wit his daughter/DPELMER in a one story home with two steps to enter. Patient has [facility] and has been to [facility] in the past. Patient does not drive. Patient uses a walker at baseline and also has a WC if needed. Patient plans to discharge home with his daughter and resume with [facility]. SW called Justin at [facility] and notified him that the patient admitted. SW will give [facility] access to the patient's chart. SW will continue to follow and assist patient throughout stay. Plan: Patient will discharge home with daughter and resume [facility]. SARAI will give [facility] access to patient chart. SW will continue to follow. Desiree Mata LMSW, JUAN Addendum: 02/22/17 at 1526 by DESIREE MATA Amended: Links added.
--- NOTE | 2017-02-22 16:51 | DRSVH ---
PROCEDURE: CT ANGIO HEAD AND NECK (P) INDICATIONS: syncope TECHNIQUE: Pre-contrast 4.5 mm thick sections acquired from the foramen magnum to the vertex. After the adminis tration of intravenous contrast, 1 mm thick sections acquired from the aortic arch through the [place] of [place]. Post-contrast 4.5 mm thick sections then re-acquired from the foramen magnum to the vert ex. 3-dimensional wmuknhy-izvyqycdx-zcywqivyvf (MIP) and/or volume rendering reformats were acquired of the central intracranial vasculature and neck separately. For radiation dose reduction, the foll owing was used: automated exposure control, adjustment of mA and/or kV according to patient size. COMPARISON: [facility], CR, XR CHEST 1VW (PORTABLE), 12/10/2016, 13:48. FINDINGS: Image quality: Excellent. BRAIN: CSF spaces: Ventricles are normal in size and shape. Basal cisterns are patent. No extra-axial flu id collections. Brain: No midline shift. No intracranial bleeds or masses. There is moderate cerebral volume loss. Moderate periventricular matter chronic small vessel ischemic changes are present. Skull and face: Calvarium and facial bones appear intact, without suspicious lesions. Orbits appear normal. Sinuses: Sinuses and mastoids are clear. HEAD CT ANGIOGRAPHY: Anterior circulation: Intracranial internal carotid arteries are suboptimally visualized due to tech nique. There is moderate to severe atherosclerotic plaques in supraclinoid internal carotid arteries bilaterally. There is possible under some at the tip of the right internal carotid artery. The flow within the paired anterior cerebral arteries is normal and symmetric. The flow within the middle cer ebral arteries is normal and symmetric. The anterior communicating artery is seen. No aneurysms are seen. Posterior circulation: The left vertebral artery is dominant. The distal left vertebral artery has a posterior fat plaque with moderate stenosis (50%). The right vertebral artery is small, which is lik jamia congenital. The terminal right vertebral artery is not visualized, which could be congenital hypo plasia or occlusion. Visualized portions of the left vertebral artery demonstrates normal caliber, an d continuous to form a normal appearing basilar artery. There is a origin of the right posteri or cerebral artery. Flow within the posterior cerebral arteries is normal and symmetric. No aneurysm s are seen. NECK CT ANGIOGRAPHY: Carotid system: The great vessels demonstrate a conventional anatomy as they arise from the aortic a rch. The origins of the common carotid arteries appear patent. The common carotid arteries demonstr ate normal caliber and courses. There are densely calcified plaques at the bifurcation regions bilate rally with moderate stenosis (60-70%). The internal carotid arteries demonstrate normal calibers and courses. Posterior circulation: The origins of the vertebral arteries are not well-seen due to the strong str eaking artifact from adjacent venous structures. The more superior extracranial portions of both airam tebral arteries also demonstrate normal courses and calibers. Soft tissues: Visualized neck soft tissues demonstrate no suspicious abnormalities. There are multi ple venous collaterals in the lower neck, suggesting left subclavian in obstruction (left-sided injec tion). Bones: No suspicious bony lesions. Visualized cervical spine appears normally aligned. IMPRESSION: 1. No acute intracranial abnormalities. 2. Moderate cerebral volume loss and chronic microvascular ischemic changes. 3. origin of the right posterior cerebral artery. 4. Dominant left vertebral artery. There is moderate stenosis (50%) in the distal left vertebral rea ry. 5. 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 6. Sub-optimal visualization of the supraclinoid internal carotid arteries bilaterally. There are sev ere calcified plaques in the supraclinoid internal carotid arteries bilaterally. 7. Possible small aneurysm is noted at the tip of the distal right internal carotid artery. If clinic ally indicated, MR cerebral angiogram may be helpful. 8. 60-70% stenosis at the carotid bifurcations bilaterally. 9. Vertebral artery origins are not well seen. Distally, the vertebral arteries are thickened bilater ally. 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 Dictated by: Tahira Rdz M.D. on 02/22/2017 at 16:25 Transcribed by: PAT on 02/22/2017 at 16:50 Approved by: Tahira Rdz M.D. on 02/22/2017 at 19:51
[2017-02-22 17:15] VITALS: BP 180/72; PULSE 65; RESP 15; O2SAT 94
[2017-02-22] MEDS ORDERED: Haloperidol 5 mg/mL Inj IVPUSH ONE (23:40)
[2017-02-23] MEDS ORDERED: Haloperidol 5 mg/mL Inj IM ONE (00:20)
[2017-02-23] MEDS: Piperacillin-Tazo 3.375 Gm Inj 3.375 GM in Dextrose 5% Minibag Plus 50 ML IV SCH ×2 (00:31→13:30)
[2017-02-23 01:13] VITALS: BP 162/73; PULSE 69; RESP 16; O2SAT 96
[2017-02-23 05:38] LABS: Mean Corpuscular Hemoglobin 28.9 pg (27.0-35.0); Mean Corpuscular Volume 88.9 fL (81-100)
[2017-02-23 06:10] VITALS: BP 152/65; PULSE 66; RESP 16; O2SAT 93
--- NOTE | 2017-02-23 06:17 | NUR ---
Anxiety Pt became anxious, restless and combative, spoke with night reji Walters ordered, with good results. Pt relaxed and slept well. Able to arouse as needed. Daughter stayed in room with pt for the night. will monitor.
[2017-02-23] MEDS: Insulin LISPRO 300 Unit/3 mL Inj SUBQ SCH ×4 (08:00→22:00)
--- NOTE | 2017-02-23 08:48 | NUR ---
Refused HIDA Was called by primary nurse Usha bc pt refused HIDA scan and daughter Verito was not pleased with this. Explained to daughter that we cannot force a pt to participate if they are refusing. Spoke with Roel in [facility] who stated that we could try the HIDA scan again between 12-1 and that the daughter could come down and help encourage him into completing the scan. Primary nurse Usha and daughter aware of plan. Care conts.
[2017-02-23] MEDS: 0.9% Sodium Chloride 1,000 ML IV SCH ×4 (09:10→21:56)
--- NOTE | 2017-02-23 10:12 | NUR ---
Evaluation completed. Please go to "Notes" then click on "Assessments and Notes" (bottom left corner of screen). Then select appropriate discipline tab on top of screen.
--- NOTE | 2017-02-23 14:38 | PCM.PNMED ---
Subjective Date of Service Feb 23, 2017 Subjective Patient was seen and examined at bedside today. Patient denies any chest pain, shortness of breath, nausea, vomiting, diarrhea. The patient does have dementia and needs redirecting. The patient refuses HIDA scan this morning however was told that the doctor needed this information he stated that he was willing to eat. Imaging was called and made aware of the situation and stated that they would return to take the patient for his HIDA scan today. One of the patient's daughters was present during this conversation and agreed that he should have a HIDA scan. Overnight events: None Exam Vital Signs Vital Sign - Last Date Time Temp Pulse Resp B/P Pulse Ox O2 Delivery O2 Flow Rate FiO2 02/23/17 06:10 36.8 66 16 152/65 93 Room Air Intake and Output 02/22/17 02/22/17 02/23/17 Cumulative From/Thru 14:59 22:59 06:59 02/21/17 14:33 - 02/23/17 06:37 Intake Total 1585 ml 1275 ml 4096 ml Output Total 773 ml 773 ml Balance 812 ml 1275 ml 3323 ml Intake Oral 500 ml 0 ml 736 ml IV Total 1085 ml 1275 ml 3360 ml Output Urine Total 773 ml 773 ml # Voids 3 2 7 # Bowel Movements 1 1 Exam Physical Exam: GEN: Patient was awake, alert, responding appropriately to questions HEENT: Pupils equal round and reactive to light, extraocular eye muscles intact , Neck soft supple, trachea midline, nomocephalic/atraumatic CV: +S1/S2, regular rate and rhythm, no murmurs auscultated Respiratory: CTAB, no wheezes, rales, rhonchi GI: +bowel sounds x4, soft, compressible, nontender to palpation EXT: no clubbing, cyanosis, edema Neuro: Cranial nerves II-XII grossly intact Psych: mood and affect were appropriate IVs and Medications Medications Reviewed: Medications were reviewed in detail Lab and Diagnostics Result Diagram: 02/23/1750902/23/17509 Assessment & Plan 89-year-old male with syncope and abdominal painin Acute cholecystitis -Continue Zosyn -Gen. surgery following (Dr. De Dios) -Clear liquid diet -Follow up labs in the morning Elevated lipase and liver enzymes -Most likely secondary to the acute cholecystitis -AST and ALT improving -Continue to monitor Syncope -Pacemaker interrogated no signs of activity everything is currently operational and normal ([facility] interrogated the pacemaker) -CT angiogram of the head shows significant changes which are most likely due to the patient's syncope -Troponins are mildly elevated but this seems to be the patient's baseline -Echo: Only slight change and elevated right ventricular pressure compared to previous echo all other changes were similar to previous echo History of heart disease and previous [place] with Elevated troponins -Troponins most likely elevated secondary to demand ischemia (most likely chronic) -Continue aspirin -Continue metoprolol Diabetes -Continue to hold glyburide as patient's blood glucoses within normal limits -Insulin sliding scale -Accu-Cheks before meals and at bedtime Hypertension -Currently controlled -Continue lisinopril and metoprolol Dementia -Currently stable Physical deconditioning (present on admission) -PT and OT evaluation History of bladder cancer currently stable Code Status: Full code DVT prophylaxis: SCDs and Lovenox Diet: Clear liquids for today and by mouth at midnight Disposition: The patient will go for a HIDA scan today for evaluation of the gallbladder. The patient does have some significant changes on the CT angiogram of the brain which most likely contributed to the patient's syncope. We will continue to follow with GI in regards to the patient's acute cholecystitis and appreciate their recommendations. Power of Computer Support Specialist Instructor: Lilli De Dios (Daughter) [phone] Resuscitation Status: CPR: Attempt Resuscitation Limited Interventions: Compressions Aggie Pabon DO Feb 23, 2017 14:38
--- NOTE | 2017-02-23 14:57 | PCM.PNSURG ---
Subjective Date of Service: Feb 23, 2017 Date of Service: Feb 23, 2017 Visit Information: Reason for Visit Acute Colleen, Syncope Surgery/Surgery Date Post-Op Day # Date of Admission: Feb 21, 2017 at 17:48 Hospital Day # Subjective: Patient lying in bed in no acute distress. Patient denies any chest pain, shortness of breath, nausea, vomiting, diarrhea. The patient has dementia and needs some redirection. The patient refuses HIDA scan this morning and had some food. Imaging was called and made aware of the situation and stated that they would return to take the patient for his HIDA scan today. Objective Objective GEN: Patient was awake, alert,, lying in bed in no acute distress. HEENT: Neck soft supple, trachea midline, nomocephalic/atraumatic. CV: regular rate and rhythm, no murmurs auscultated Respiratory: clear to auscultation, no wheezes, rhonchi, or rales GI: Posotive bowel sounds, soft, compressible, nontender to palpation, EXT: no clubbing, cyanosis, edema Neuro: Cranial nerves II-XII grossly intact Psych: mood and affect were appropriate, need redirecting likely due to dementia. Intake and Output- Last 8 Hour 02/23/17 Cumulative From/Thru 07:00 02/21/17 14:33 - 02/23/17 06:37 Intake Total 1275 ml 4096 ml Output Total 773 ml Balance 1275 ml 3323 ml Intake Oral 0 ml 736 ml IV Total 1275 ml 3360 ml Output Urine Total 773 ml # Voids 2 7 # Bowel Movements 1 Result Diagram: 02/23/17 0510 02/23/17 0510 Assessment & Plan Impression Possible acute on chronic cholecystitis Pacemaker s/p CABG Dementia Problems: Plan 89-year-old male with syncope and abdominal pain and likely acute cholecystitis. Abdominal pain likely represents Acute cholecystitis. Awaiting HIDA scan results. Family (son and daughter) are not favoring surgical intervention at the moment. Continue Abx per hospitalist team. Clear liquids for today and by mouth at midnight Resuscitation Status: CPR: Attempt Resuscitation Limited Interventions: Compressions NANCY JOHNSON DO Feb 23, 2017 14:57
--- NOTE | 2017-02-23 15:22 | NUR ---
Social Work-continued d/c planning: Data:EMR reviewed.Pt is on day 2 of hospitalization for acute blanca per H&P. Pt is not medically stable for discharge. PT saw pt today and recommended SNF. SW attempted to follow up with pt and daughter, pt currently out of the room at procedure. Pt is currently open with [facility]. SW to follow up again tomorrow. Assessment:Pt who is independent at baseline. Plan:SW to follow up tomorrow to discuss SNF.Pt is currently open with [facility]. SARAI to follow up again tomorrow. KAITLIN Hall
--- NOTE | 2017-02-23 16:40 | DRSVH ---
PROCEDURE: NM HIDA SCAN WITHOUT CCK RADIOPHARMACEUTICAL: 5.3 mCi Tc-99m mebrofenin IV. INDICATIONS: 89 year-old male with dementia and suspected acute cholecystitis. TECHNIQUE: Following intravenous administration of Tc-99m mebrofenin, sequential anterior abdominal images were obtained through at least 2 hours. COMPARISON: [facility], CT, CT [facility]BD [facility]EL[facility] W CON[facility] 02[facility] 16[facility]D, 12/15/2016, 8:29. FINDINGS: There is normal tracer uptake and excretion by the liver. There is normal visualization o f intrahepatic ducts, common bile duct, but not the gallbladder. There is normal tracer excretion in to duodenum. IMPRESSION: Nonfilling of the gallbladder lumen with radiotracer, consistent with acute cholecystitis in conjunct ion with CT findings. Dictated by: Vince Loredo M.D. on 02/23/2017 at 16:34 Approved by: Vince Loredo M.D. on 02/23/2017 at 16:38
[2017-02-23 18:59] VITALS: BP 145/66; PULSE 65; RESP 17
--- NOTE | 2017-02-23 19:34 | NUR ---
reneeasccandice pt. refused hidascan this am; back in room; explained to daughter at bedside that he refused scan; daughter upset that we allowed her father to refuse the scan stating it is our job to get these kind of things done. Spoke with atv mechanic and sales floor associate who spoke with family. Pt. mariamoa here this afternoon and able to go with pt. to perla this afternoon. Pt. vss; receiving scheduled abx.
[2017-02-23 20:40] VITALS: BP 160/61; PULSE 50; RESP 18; O2SAT 95
[2017-02-24] VITALS (16 sets, daily range): BP systolic 146–183; BP diastolic 55–92; PULSE 65–111; RESP 12–22; O2SAT 95–100
[2017-02-24] MEDS: Piperacillin-Tazo 3.375 Gm Inj 3.375 GM in Dextrose 5% Minibag Plus 50 ML IV SCH ×3 (01:38→23:50)
[2017-02-24] MEDS: 0.9% Sodium Chloride 1,000 ML IV SCH ×3 (05:10→19:46)
[2017-02-24 06:14] LABS: Mean Corpuscular Hemoglobin 28.7 pg (27.0-35.0); Mean Corpuscular Volume 89.5 fL (81-100)
--- NOTE | 2017-02-24 06:35 | NUR ---
Sleep Patient's daughter voiced desire for patient to sleep as much as possible. Patient able to sleep through care and majority of shift. Turned and changed as needed. Does not exhibit s/s of CP, SOB, Abdominal discomfort. VSS at this time.
[2017-02-24] MEDS: Insulin LISPRO 300 Unit/3 mL Inj SUBQ SCH ×4 (08:00→21:20)
[2017-02-24] MEDS ORDERED: EPHEDrine/NS 5 mg/mL 5 mL Syringe ONE (12:00)
[2017-02-24] MEDS ORDERED: Ondansetron 2 mg/mL 2 mL Inj ONE (12:00)
[2017-02-24] MEDS ORDERED: Propofol 10,000 mCg/mL 20 mL Inj ONE (12:00)
[2017-02-24] MEDS ORDERED: Rocuronium 10 mg/mL 5 mL Inj ONE (12:00)
[2017-02-24] MEDS ORDERED: fentaNYL-PF 50 mCg/mL 2 mL Inj ONE (12:00)
--- NOTE | 2017-02-24 13:11 | PROG NOTE ---
[address] [address] PROGRESS NOTE PATIENT: TEDDY TAVERAS : 1925 MR#: [id number] ADMIT: 02/21/2017 JOB ID: [id number] DATE: 02/24/2017 SUBJECTIVE: The patient is seen in followup for the Surgical team. He is an 89-year-old man who is familiar to me. I first met him in December when he was hospitalized with concerns about intra-abdominal infection. At that time the possibility of cholecystitis was entertained but a HIDA scan showed filling of the gallbladder essentially ruling out that diagnosis. The patient has been recently rehospitalized and again, they are concerned for an intra-abdominal infectious process. Yesterday, he underwent a HIDA scan. This time, there was nonvisualization of the gallbladder suggesting possibility of cholecystitis. This morning the patient tells me he is having no abdominal pain and has not had any. He had a febrile episode overnight up to 37.8. OBJECTIVE: This morning he is afebrile and hemodynamically normal. He is alert and oriented, pleasant this morning. His abdomen is soft, nontender, nondistended. His white blood cell count is 8.6. It has been normal since his hospitalization. His creatinine is normal at 1.07. HIDA scan is reviewed, as well as his original CT scan when he was admitted. These are suggestive of a possibility of acute cholecystitis. ASSESSMENT AND PLAN: This is an 89-year-old man with recent admission due to decreased mental status with HIDA scan yesterday suggesting cholecystitis. I discussed the results of the HIDA scan with the patient and his family members. He does not have any overt signs of cholecystitis, specifically no abdominal pain, however, that is not uncommon in a patient in his situation. I discussed management options. At this point, I recommend laparoscopic cholecystectomy. They are very concerned about the possibly of converting to an open procedure. We came to the agreement that if this is not able to be completed successfully laparoscopically, I would, if possible, back out of cholecystectomy and try and place a cholecystostomy tube laparoscopically. He understands and consent was provided. This will be done this afternoon.
--- NOTE | 2017-02-24 14:37 | NUR ---
NUTRITION ASSESSMENT: ASSESS: 89 YO male admitted for acute cholecystitis and syncope. Pt had HIDA scan 02/23, and plan is for laparoscopic cholecystectomy today. Pt has been NPO / Clear liquids x 3 days. PMHx: DM type 2, heart disease, [place] with triple bypass and pacemaker, bladder cancer in remission, HTN, Dementia, spinal stenosis. LABS: Reviewed. Glu 101, Alk Phos 171, Alb 2.5. MEDS: Reviewed. GI: BM x 1 (02/22) CURRENT WT: 63.4 kg. DIET: NPO EST. NEEDS: 4971-2254 kcals (25-30 kcals/kg BW), 65-95 g protein (1.0-1.5 g/kg BW) NUTRITION DIAGNOSIS: 1.) Inadequate oral intake related to decreased ability to consume sufficient energy as evidenced by current NPO /clear liquid diet status x 3 days. NUTRITION INTERVENTION: 1.) Will continue to await timely advancement of diet s/p procedure, hopefully in the next 1-2 days. MONITOR / EVAL: Diet advancement / tolerance, labs, nutritional status. Follow per high nutritional risk guidelines.
--- NOTE | 2017-02-24 15:37 | PCM.HPANE ---
Patient Data Surgeon Admitting Provider:Aggie Pabon DO Attending Provider:Aggie Pabon DO Primary Care Physician:Aly Duncan MD Other Provider:Leisa You Anesthesia Reason for Visit Acute Colleen, Syncope Ht/WT & BMI Height (Feet): 5 Height (Inches): 6.00 Weight (Kilograms): 63.400 Body Mass Index 22.46 Allergies Coded Allergies: No Known Allergies (Verified Allergy, Unknown, 12/10/16) Past Anesthesia History Anesthesia History: Denies:: Anesthesia Reactions (FAMILY UNSURE) Diabetes History Hx Diabetes?: Yes Current Bedside Blood Glucose: 91 MRSA MRSA: No Medications Reported Medications Cholecalciferol (Vitamin D3) (Vitamin D3)2,000 Unit Capsule2,000 Unit PO DAILY 12/10/16 Ibuprofen 200 Mg [id number] Mg PO BID PRN For Pain Ref 0 12/10/16 Inulin/Chromium Picolinate (Fiber Select Gummies Tab Chew)1 Each Tab.chew1 Each PO 08/15/15 Multivitamin (Multi Vitamin Daily)1 Each Tablet1 Each PO DAILY 30 Days Ref 0 08/15/15 Metoprolol Tartrate 25 Mg Hdmgax75.5 Mg PO BID 30 Days Ref 0 08/15/15 Magnesium Amino Acid Chelate (Magnesium)100 Mg [id number] Mg PO BID 08/15/15 Lisinopril 2.5 Mg Tablet2.5 Mg PO DAILY 30 Days Ref 0 08/15/15 Glyburide 1.25 Mg Tablet0.625 Mg PO DAILY 30 Days Ref 0 08/15/15 Folic Acid 1 Mg Tablet1 Mg PO DAILY 30 Days 08/15/15 Aspirin 81 Mg Ovqqnw09 Mg PO DAILY Ref 0 08/15/15 Discontinued Scripts Amoxicillin/Clav K 875-125 mg (Augmentin 875-125 mg)1 Each Tablet1 Tablet PO BID #10 TABLET Ref 0 Prov:Holly,Chantale R DO 12/15/16 History History of ENT Problems?: No HEENT History: Denies:: Abnormal Airway Cataracts Difficult Intubation Dysphagia Glaucoma Hearing Problem Sinus Problem TMJ Denture Type: Full- Upper Full- Lower Teeth Condition: No Teeth Hx of Heart Problems?: Yes Cardiovascular History: Positive for:: Cardiac Surgery (TRIPLE BYBASS AND PACEMAKER PLACEMENT 2010) Chest Pain Congestive Heart Failure Edema Hypertension Pacemaker (2010) Denies:: Heart Murmur Irregular Heartbeat Thrombophlebitis Hx of Respiratory Problem?: No Respiratory History: Denies:: Tuberculosis Hx Neurologic Problems?: Yes Neurological History: Positive for:: Dementia Dizziness (at times ) Denies:: Alzheimer's Disease CVA Headaches Parkinson's Disease Seizures Hx of GI Problems?: No Gastrointestinal History: Positive for:: Heartburn Denies:: Diverticulitis Gastroesphageal Reflux Gastrointestinal Bleeding Hepatitis Hiatal Hernia Rectal Bleeding Hx of Problems?: Yes Genitourinary History: Denies:: HX of Hemodialysis Kidney Stones Urinary Tract Infection HX of Peritoneal Dialysis: No Other Pertinent History: BLADDER CANCER Male Hx: Denies:: Prostate Problems Scrotal Mass Testicular Surgery Hx Musculoskeletal Problems?: Yes Musculoskeletal History: Positive for:: Back Injury (SPINAL STENOSIS) Denies:: Joint Replacement Musculoskeletal Trauma Hx of Psycho/Social Problems?: No Psycho Social History: Denies:: Anxiety Bipolar Disorder Hx Depression Suicide Attempt Hx Surgeries?: Yes (TRIPLE BYPASS WITH PACEMAKER PLACEMENT, TUMOR RESECTION IN BLADDER, APPE) Hx Any Other Health Problems?: Yes Other History: Positive for:: Cancer (BLADDER CANCER IN REMISSION SINCE 2010) Endocrine Disease Hospitalization (surgeries) Denies:: Thyroid Disease History Blood Transfusions: Positive for:: Accept Blood Products? Hx Diabetes: YesBedside Blood Glucose: 91 Hx Alcohol Use: NoHx Substance Use: No Smoking Status: Former Smoker Have You Smoked inLast 12 mo: No Stop/Bang Treated for Sleep Apnea?: No Do You Have a CPAP Machine?: Yes S-Snoring: Do You Snore Loudly: No T-Tired: feel tired, fatigued: No O-Obsered: Observed not breath: No P-Blood Pressure: treated: Yes B- Body Mass Index > 35 kg/m2: No A- Age over 50: Yes N- Neck Large Circumference: No G- Gender Male: Yes IESHA Total Score: 2 Risk Assessment Category Category 1A: Patient has history of documented sleep apnea, and HAS NOT received any narcotic, sedative or anesthesia administration during this stay. Category 1B: Patient has history of documented sleep apnea, and HAS received any narcotic , sedative or anesthesia administration during this stay Category 2: Patient has SUSPECTED Obstructive Sleep Apnea, and HAS received any narcotic , sedative or anesthesia administration during this stay. Category 3: Patient has SUSPECTED Obstructive Sleep Apnea and HAS NOT received narcotic, sedative or anesthesia administration during this stay. Category 4: Outpatient in Procedural Areas with known sleep apnea or who screen positive for High Risk via the STOP/BANG questionnaire. Exam Exam Vital Signs Vital Signs Date Time Temp Pulse Resp B/P Pulse Ox O2 Delivery O2 Flow Rate FiO2 02/24/17 08:20 36.7 69 12 172/76 95 Room Air General Appearance: Alert, Cooperative, Other (demented, anwers some questions , daugter present) HEENT/AIRWAY: MP 1 Lungs: Normal Air Movement Heart: Regular Rate/Rhythm Meds/Labs/Diagnostics Bedside Blood Glucose: 91 Labs Test 02/21/17 15:15 02/22/17 10:02 02/24/17 05:56 Prothrombin Time 10.7sec (8.1-12.5) Prothromb Time International Ratio 1.00ratio Lactic Acid Level 1.1mmol/L (0.4-2.0) Magnesium Level 1.9mg/dL (1.6-2.6) Neutrophils (%) (Auto) 70.2% (40-74) Lymphocytes (%) (Auto) 19.4% (14-46) Monocytes (%) (Auto) 7.8% (4-12) Eosinophils (%) (Auto) 1.5% (0-5) Basophils (%) (Auto) 0.4% (0-3) Troponin T 0.028ug/L (0.0-0.011) White Blood Count 8.6th/mm3 (3.8-10.1) Red Blood Count 3.80mil/mm3 (4.40-5.80) Hemoglobin 10.9g/dL (13.8-17.2) Hematocrit 34.0% (41.0-50.0) Mean Corpuscular Volume 89.5fL (81-100) Mean Corpuscular Hemoglobin 28.7pg (27.0-35.0) Mean Corpuscular Hemoglobin Concent 32.1% (32.0-37.0) Red Cell Distribution Width 13.8% (12.3-15.4) Platelet Count 227bil/L (150-400) Sodium Level 140mEq/L (134-144) Potassium Level 4.0mEq/L (3.5-5.2) Chloride Level 104mEq/L (97-108) Carbon Dioxide Level 21mmol/L (18-29) Blood Urea Nitrogen 11mg/dL (8-27) Creatinine 1.07mg/dL (0.76-1.27) Estimat Glomerular Filtration Rate 69mL/min (>59) Glucose Level 101mg/dL (60-99) Calcium Level 8.0mg/dL (8.5-10.1) Total Bilirubin 0.6mg/dL (0.0-1.2) Aspartate Amino Transf (AST/SGOT) 44U/L (0-50) Alanine Aminotransferase (ALT/SGPT) 32U/L (0-44) Alkaline Phosphatase 171U/L (25-160) Total Protein 5.2g/dL (6.4-8.4) Albumin 2.5g/dL (3.4-5.0) Lipase 29U/L (13-60) Plan Impression Patient chart reviewed, patient interviewed and anesthestic plan with risks, benefits, and alternatives discussed, and informed consent obtained. ASA Physical Status: ASA3 Severe Disease Anesthetic Plan: GA Bene/Risks/Altern/Consents: Yes HP Complete Prior to Induction: Yes Other Discussed increased risk of cardiac event and decreased cognition after anesthesia. Anita Bennett DO Feb 24, 2017 15:37
--- NOTE | 2017-02-24 15:42 | NUR ---
To OR Pt left via hospital bed to the OR at approx 1540. Report given to DO Gómez RN. Pt IV SL and daughter whom is POA accompanied pt to the OR waiting area. VSS no complaints of pain
[2017-02-24] MEDS ORDERED: Lactated Ringer's 1,000 ML IV ONE (15:57)
--- NOTE | 2017-02-24 16:08 | NUR ---
Social Work-continued d/c planning: Data:EMR reviewed.Pt is on day 3 of hospitalization for acute blanca per H&P. Pt is not medically stable for discharge. PT saw pt today and recommended SNF. SW attempted again today to follow up with pt and daughter, pt currently at the OR. Pt is currently open with [facility]. SW to follow up again tomorrow. Assessment:Pt who is independent at baseline. Plan:SW to follow up tomorrow to discuss SNF.Pt is currently open with [facility]. SW will continue to follow. KAITLIN Hall
[2017-02-24] MEDS ORDERED: Bupivacaine-MPF 0.25%/EPI 30 mL Inj INJ ONE (16:56)
[2017-02-24] MEDS ORDERED: Lactated Ringer's 500 ML IV PRN (17:03)
[2017-02-24] MEDS ORDERED: Lactated Ringer's 1,000 ML IV SCH (17:03)
[2017-02-24] MEDS ORDERED: EPHEDrine Sulfate 50 mg/mL Inj IVPUSH PRN (17:05)
[2017-02-24] MEDS ORDERED: Ondansetron 2 mg/mL 2 mL Inj IVPUSH PRN (17:05)
[2017-02-24] MEDS ORDERED: Phenylephrine 10,000 mCg/mL Inj IVPUSH PRN (17:05)
[2017-02-24] MEDS ORDERED: fentaNYL-PF 50 mCg/mL 2 mL Inj IVPUSH PRN (17:05)
--- NOTE | 2017-02-24 17:07 | PCM.PNMED ---
Subjective Date of Service Feb 24, 2017 Subjective Patient was seen and examined at bedside today. Patient denies any chest pain, shortness of breath, nausea, vomiting, diarrhea. Patient was seen with his daughter who is the power of employment attorney and states that the patient had a much better evening and is doing well today. Overnight events: None Exam Vital Signs Vital Sign - Last Date Time Temp Pulse Resp B/P Pulse Ox O2 Delivery O2 Flow Rate FiO2 02/24/17 08:20 36.7 69 12 172/76 95 Room Air Intake and Output 02/23/17 02/23/17 02/24/17 Cumulative From/Thru 15:00 23:00 07:00 02/21/17 14:33 - 02/24/17 06:36 Intake Total 350 ml 2835 ml 7281 ml Output Total 550 ml 1323 ml Balance 350 ml 2285 ml 5958 ml Intake Oral 350 ml 400 ml 1486 ml IV Total 2435 ml 5795 ml Output Urine Total 550 ml 1323 ml # Voids 3 10 # Bowel Movements 1 Exam Physical Exam: GEN: Patient was awake, alert, responding appropriately to questions HEENT: Pupils equal round and reactive to light, extraocular eye muscles intact , Neck soft supple, trachea midline, nomocephalic/atraumatic CV: +S1/S2, regular rate and rhythm, no murmurs auscultated Respiratory: CTAB, no wheezes, rales, rhonchi GI: +bowel sounds x4, soft, compressible, nontender to palpation EXT: no clubbing, cyanosis, edema Neuro: Cranial nerves II-XII grossly intact Psych: mood and affect were appropriate IVs and Medications Medications Reviewed: Medications were reviewed in detail Lab and Diagnostics Result Diagram: 02/24/17 0556 02/24/17 0556 Assessment & Plan 89-year-old male with syncope and abdominal painin Acute cholecystitis -Continue Zosyn -Gen. surgery following -Clear liquid diet -HIDA scan positive for acute cholecystitis -Follow up labs in the morning Elevated lipase and liver enzymes -Most likely secondary to the acute cholecystitis -AST and ALT improving -Continue to monitor Syncope -Pacemaker interrogated no signs of activity everything is currently operational and normal (St. Jourdan interrogated the pacemaker) -CT angiogram of the head shows significant changes which are most likely due to the patient's syncope -Troponins are mildly elevated but this seems to be the patient's baseline -Echo: Only slight change and elevated right ventricular pressure compared to previous echo all other changes were similar to previous echo History of heart disease and previous MA with Elevated troponins -Troponins most likely elevated secondary to demand ischemia (most likely chronic) -Continue aspirin -Continue metoprolol Diabetes -Continue to hold glyburide as patient's blood glucoses within normal limits -Insulin sliding scale -Accu-Cheks before meals and at bedtime Hypertension -Currently controlled -Continue lisinopril and metoprolol Dementia -Currently stable Physical deconditioning (present on admission) -PT and OT evaluation History of bladder cancer currently stable Code Status: Full code DVT prophylaxis: SCDs and Lovenox Diet: Clear liquids for today and by mouth at midnight Disposition: The patient did have a HIDA scan yesterday which showed that he does have acute cholecystitis. Gen. surgery is going to place a tube in the gallbladder to drainage today. Patient seems to be progressing well we will continue to monitor. Power of Rn Advice: Lilli De Dios (Daughter) [phone] Resuscitation Status: CPR: Attempt Resuscitation Limited Interventions: Compressions Aggie Pabon DO Feb 24, 2017 17:07
--- NOTE | 2017-02-24 17:28 | PCM.ANEP1 ---
Post Anesthesia Phase 1 PACU Phase 1 Assessment Date of Service: Feb 23, 2017 Anesthetic Administered: GA Level of Alertness: Drowsy, not talking ANG's with Equal Strength: Yes Pain: No Pain Scale Score: 0 Nausea or Vomiting: No Oxygen Delivery: Simple Mask Lungs: Normal Air Movement Complications: No Anita Bennett DO Feb 24, 2017 17:28
[2017-02-24] MEDS: HYDROmorphone 1 mg/mL Inj IVPUSH PRN ×3 (18:00→21:27)
--- NOTE | 2017-02-24 18:47 | NUR ---
Post Op Pt arrived back to [facility] rm 1020 at approx 1845 via hospital beed. Rec'd report from SANTOS Sparks in PACU. Pt moaning in pain, O2 at 3L Bile drain draining to gravity, LIZETTE drain draining serous sang fluid to suction. SCD's on IV currently SL VSS
[2017-02-24] MEDS ORDERED: HYDROmorphone 1 mg/mL Inj IVPUSH PRN (19:20)
--- NOTE | 2017-02-24 20:18 | NUR ---
assessment delayed (student assessment delayed P: patient uncomfortable, agitated easily I: minimize stimulation E:student assessment will resume when patient rested, less agitated and more comfortable.
--- NOTE | 2017-02-24 21:13 | OP ---
[address] [address] OPERATIVE REPORT PATIENT: TEDDY TAVERAS : 1925 MR#: [id number] ADMIT: 02/21/2017 JOB ID: [id number] DATE OF SURGERY: 02/24/2017 SURGEON: Twin Bridges MD. ADVERTISEMENT COMPOSITOR: Ish Reich PA-C. ANESTHESIA: General. PREOPERATIVE DIAGNOSIS(ES): Acute cholecystitis. POSTOPERATIVE DIAGNOSIS(ES): Chronic cholecystitis. OPERATIONS: 1. Diagnostic laparoscopy. 2. Cholecystostomy tube placement. COMPLICATIONS: None. ESTIMATED BLOOD LOSS: Minimal. CONDITION: Satisfactory. SPECIMEN: None. FINDINGS: Upon entering the abdomen, it was apparent that he had been suffering from cholecystitis for quite some time. The gallbladder was completely hidden by omentum. The transverse colon was also stuck to the gallbladder. I decided to tease this off and the liver side tearing and bleeding. Therefore, per preoperative discussion with the family, I elected to place a cholecystostomy tube. INDICATIONS/SIGNIFICANT HISTORY: The patient is an 89-year-old man who was recently admitted after a deterioration in his mental status. The patient had been admitted in December with similar issues, and at that time, had bacteremia with bacteria suggestive of an intra-abdominal source of infection. The idea of cholecystitis was entertained but a HIDA scan ultimately demonstrated filling of the gallbladder. He was eventually discharged but recently bounced back. Again, the idea of cholecystitis was entertained and a HIDA scan was obtained, this time with nonvisualization of the gallbladder. I discussed the case with the family. They were very concerned about the possibly of convert to open, so we agreed upon plan of laparoscopic cholecystectomy but if it did not seem that it would be a relatively straightforward cholecystectomy, that could be performed laparoscopically. Then, I would place a cholecystostomy tube. OPERATIVE TECHNIQUE: The patient was taken to the operating room and placed in supine position. General anesthesia was administered and perioperative antibiotics were given. The abdomen was prepped and draped in standard surgical fashion and a procedural pause was performed. Entry was gained to the abdomen through a supraumbilical incision using a 10 mm Optiview trocar. Pneumoperitoneum was achieved without complication. Local anesthetic was injected, followed by insertion of 5 mm ports in the subxiphoid as well as two in the right upper quadrant. The right upper quadrant was inspected and the gallbladder was completely hidden, covered with omentum as well as transverse colon stuck up to it. We began to try and gently tease the omentum off. This began to bleed and eventually the liver started tearing causing more bleeding. This was controlled with cautery. Again, the degree of inflammation ( this is not going to be a strict full cholecystectomy and so I elected to place a cholecystostomy tube. I decreased the intra-abdominal insufflation pressure. I identified a site into the skin and created a small hetal. I then inserted an Angiocath, and under laparoscopic visualization, passed this through the liver into the gallbladder while aspirating. Eventually got pus. Confirmed that I was in the gallbladder. A wire was then inserted through the angiocatheter and the catheter exchanged for a 20-Serbian pigtail catheter. This was under laparoscopic visualization, inserted through the liver into the gallbladder. Again, pus drained through the pigtail. This was locked in place and then sutured to the skin. At the present time, a little bit of pus had leaked around the catheter intra-abdominally. I elected also to place a 15-Serbian LIZETTE drain through the right upper quadrant port site. The umbilical fascia was closed using 0 PDS suture with a laparoscopic suture passer. The remaining lateral port was removed under direct visualization followed by release of pneumoperitoneum and removal of the remaining port. Skin was closed using 4-0 Monocryl. The entire procedure was well tolerated without complication.
[2017-02-25 02:00] VITALS: BP 168/75; PULSE 79; RESP 22; O2SAT 96
[2017-02-25] MEDS: HYDROmorphone 1 mg/mL Inj IVPUSH PRN ×2 (02:08→06:22)
--- NOTE | 2017-02-25 03:04 | NUR ---
Pain/Activity Patient notably agitated and restless at beginning of shift. Initially given 0.5 mg Dilaudid IVP with effective results, resting comfortably with eyes closed upon reassessment. When pain medication started to wear off, before next dose was due, agitation and restlessness noted to increase. Spoke with Dr. Gagnon who was on unit at the time. Increased Dilaudid dose to 0.5-1mg Q9tawds with positive results. Patient noted to be resting with eyes closed most of shift so far. No longer pulling at lines, moaning, and acting restless in bed. Daughter is DPOA and staying overnight. Patient on Q2hour turns. Daughter refused first turn this shift, stating that he's finally comfortable and resting and she didn't want to disturb him. Dtr has since been compliant with turning schedule after initial refusal. Addendum: 02/25/17 at 0314 by BOB GAONA RN Patient noted to be sleepy this shift. Does awaken easily to stimuli, but doesn't follow commands, and falls back to sleep fairly quickly. PO medication held this shift as patient was not awake enough to safely take it. DPOA/daughter @ bedside and agreeable with plan.
[2017-02-25] MEDS: 0.9% Sodium Chloride 1,000 ML IV SCH ×3 (05:33→21:53)
[2017-02-25 05:42] VITALS: BP 165/75; PULSE 77; RESP 21; O2SAT 99
[2017-02-25] MEDS: Insulin LISPRO 300 Unit/3 mL Inj SUBQ SCH ×4 (08:00→22:00)
[2017-02-25 08:08] LABS: Mean Corpuscular Hemoglobin 28.8 pg (27.0-35.0); Mean Corpuscular Volume 89.7 fL (81-100)
[2017-02-25 09:08] VITALS: BP 165/69; PULSE 78; RESP 18; O2SAT 97
[2017-02-25] MEDS ORDERED: Acetaminophen IV 1,000 mg IV ONE (10:10)
[2017-02-25] MEDS ORDERED: HYDROmorphone 1 mg/mL Inj IVPUSH PRN (10:15)
[2017-02-25] MEDS ORDERED: 0.9% Sodium Chloride 250 ML ONE (11:38)
[2017-02-25] MEDS: Piperacillin-Tazo 3.375 Gm Inj 3.375 GM in Dextrose 5% Minibag Plus 50 ML IV SCH (12:12)
--- NOTE | 2017-02-25 12:55 | PROG NOTE ---
[address] [address] PROGRESS NOTE PATIENT: TEDDY TAVERAS : 1925 MR#: [id number] ADMIT: 02/21/2017 JOB ID: [id number] DATE: 02/25/2017 PROGRESS NOTE: The patient is seen postoperative day one from his laparoscopic cholecystostomy tube placement. Overnight, he has remained afebrile and hemodynamically normal. This morning, he seems a little bit confused but is otherwise alert. His abdomen is soft, does not appear to be tender and is not distended. His LIZETTE drain remains in place with serous output. He has had 90 cc since surgery. The biliary drain has a mixture of pus and bile. It had 225 recorded output. His white blood cell count remains normal at 9.4. His hematocrit is stable at 33. His creatinine is fine at 1.14. ASSESSMENT AND PLAN: This is an 89-year-old man, postoperative day one from a laparoscopic cholecystostomy tube placement. Overall, he is doing well. My plan would be to remove the Ramirez-Solis drain prior to discharge, probably tomorrow. The cholecystostomy tube will need to remain in place for a minimum of six weeks. Once he is discharged, he can follow up with me in a month or so to arrange for that. I will continue to follow along.
[2017-02-25 13:06] VITALS: BP 123/65; PULSE 70; RESP 18; O2SAT 90
--- NOTE | 2017-02-25 13:28 | NUR ---
ADWOA signed with daughter. KAITLIN Hall
--- NOTE | 2017-02-25 15:05 | PCM.PNMED ---
Subjective Date of Service Feb 25, 2017 Subjective Patient was seen and examined at bedside today. Patient denies any chest pain, shortness of breath, nausea, vomiting, diarrhea. Overnight events: Patient did have some bouts of pain after his surgical procedure but was well controlled with pain medications. Exam Vital Signs Vital Sign - Last Date Time Temp Pulse Resp B/P Pulse Ox O2 Delivery O2 Flow Rate FiO2 02/25/17 13:06 36.6 70 18 123/65 90 Room Air 02/25/17 09:08 3.00 Intake and Output 02/24/17 02/24/17 02/25/17 Cumulative From/Thru 15:00 23:00 07:00 02/21/17 14:33 - 02/25/17 06:42 Intake Total 566 ml 996 ml 8843 ml Output Total 753 ml 2076 ml Balance 566 ml 243 ml 6767 ml Intake Oral 0 ml 1486 ml IV Total 566 ml 996 ml 7357 ml Output Urine Total 438 ml 1761 ml Drainage Total 315 ml 315 ml # Voids 1 11 # Bowel Movements 0 1 Exam Physical Exam: GEN: Patient was awake, lethargic but, responding appropriately to questions at patient's baseline garbled speech HEENT: Pupils equal round and reactive to light, extraocular eye muscles intact , Neck soft supple, trachea midline, nomocephalic/atraumatic CV: +S1/S2, regular rate and rhythm, no murmurs auscultated Respiratory: CTAB, no wheezes, rales, rhonchi GI: +bowel sounds x4, soft, compressible, moderate tenderness to palpation EXT: no clubbing, cyanosis, edema Neuro: Cranial nerves II-XII grossly intact Psych: mood and affect were appropriate IVs and Medications Medications Reviewed: Medications were reviewed in detail Lab and Diagnostics Result Diagram: 02/25/17 0747 02/25/17 0747 Assessment & Plan 89-year-old male with syncope and abdominal painin Acute cholecystitis -Discontinue Zosyn -Start linezolid 600 twice a day -Gen. surgery following -Diet: Heart healthy -HIDA scan positive for acute cholecystitis -Blood cultures positive for coagulase negative Staphylococcus sensitive to linezolid -Tylenol and Toradol for pain management -LIZETTE drain in place -Ramirez-Solis tube in place -Follow up labs in the morning Elevated lipase and liver enzymes -Most likely secondary to the acute cholecystitis -AST and ALT improving -Continue to monitor Syncope -Pacemaker interrogated no signs of activity everything is currently operational and normal (St. Jourdan interrogated the pacemaker) -CT angiogram of the head shows significant changes which are most likely due to the patient's syncope -Troponins are mildly elevated but this seems to be the patient's baseline -Echo: Only slight change and elevated right ventricular pressure compared to previous echo all other changes were similar to previous echo History of heart disease and previous ND with Elevated troponins -Troponins most likely elevated secondary to demand ischemia (most likely chronic) -Continue aspirin -Continue metoprolol Diabetes -Continue to hold glyburide as patient's blood glucoses within normal limits -Insulin sliding scale -Accu-Cheks before meals and at bedtime Hypertension -Currently controlled -Continue lisinopril and metoprolol Dementia -Currently stable Physical deconditioning (present on admission) -PT and OT evaluation History of bladder cancer (currently stable) Code Status: Full code DVT prophylaxis: SCDs and Lovenox Diet: Clear liquids for today and by mouth at midnight Disposition: The patient is currently progressing well and the patient seemed to tolerate his procedure well yesterday. Patient has been switched over to nonnarcotic pain medication as the narcotic pain medication seems to be too strong for the patient causing him to be tired throughout the day. The patient has been advanced to a general diet and will most likely be able to discharge home tomorrow per surgery. They will discontinue the LIZETTE drain however the Ramirez-Solis drain was still need to be in place for 6 weeks and follow-up with Dr. Bridges. Power of Senior Net Application Developer: Lilli De Dios (Daughter) [phone] VTE Mechanical Devices: Intermittant Pneumatic CD Resuscitation Status: CPR: Attempt Resuscitation Limited Interventions: Compressions Aggie Pabon DO Feb 25, 2017 14:39
--- NOTE | 2017-02-25 15:57 | NUR ---
Social Work - Continued Discharge Planning: Data: EMR reviewed. Pt is on day 4 of hospitalization for acute blanac., syncope per H&P. Pt is not medically stable for several days. SW followed up with pt's daughter and son at bedside to further discuss discharge planning and options for SNF and HH. Pt's family declined SNF. Pt would like HH services, choice list provided. Pt and family would like referral to [facility]. SW contacted [facility] for referral for nursing PT and OT. Pt plans to return home with daughter and son (who provide 24/7 care) with [facility] . SW provided phone number and plan on white board in room. SW will continue to follow. Assessment:Pt who is independent at baseline. Plan:Pt to discharge home with 24/7 care and [facility] RN/PT/OT when medically stable via POV. F2F in folder. SW to follow. KAITLIN Izaguirre
[2017-02-25] MEDS: Ketorolac 15 mg/mL Inj IVPUSH PRN (17:15)
--- NOTE | 2017-02-25 17:33 | NUR ---
Dressing Pt w/ leakage from both LIZETTE drain site and Bile drain site Bandages changed w/ 4x4 guaze and paper tape. Pt complains of pain after procedure, attempted to administer PO tylenol pt refused and spit out pill Pt demanded that I leave his room. I complied and spoke w/ hospitalist. IVP Toradol available if needed and family is aware. Bed down and locked, mera alarm on, call light w/in reach
[2017-02-25 20:39] VITALS: BP 174/65; PULSE 87; RESP 20; O2SAT 94
--- NOTE | 2017-02-26 03:20 | NUR ---
Med Pass/Drains/Pain On initial assessment, patient was cooperative with med pass. Patient did swallow half of tablet. Patient answered some questions appropriately. Other times, patient was confused and mumbled. Son is at bedside. LIZETTE drain and bile drain draining well. Patient did flinch in pain when mid abdomen was examined. Stated " that was sore" VSS. Call light within reach. Son informed to call if questions or needs. Care continues.
[2017-02-26] MEDS: Ketorolac 15 mg/mL Inj IVPUSH PRN (04:23)
--- NOTE | 2017-02-26 05:08 | NUR ---
Med Pass During clothes ironer med pass, patient coughed when given Linezolid. Patient swallowed most of dose. It was noted that dentures do not fit tightly. Swallow eval ordered
[2017-02-26 05:24] VITALS: BP 170/81; PULSE 86; RESP 18; O2SAT 91
[2017-02-26 06:17] LABS: Mean Corpuscular Hemoglobin 28.7 pg (27.0-35.0); Mean Corpuscular Volume 89.4 fL (81-100)
[2017-02-26] MEDS: 0.9% Sodium Chloride 1,000 ML IV SCH ×2 (07:53→17:29)
[2017-02-26] MEDS: Insulin LISPRO 300 Unit/3 mL Inj SUBQ SCH ×4 (08:00→23:41)
[2017-02-26 09:16] VITALS: BP 167/78; PULSE 86; RESP 20; O2SAT 92
--- NOTE | 2017-02-26 10:29 | NUR ---
Evaluation completed. Please go to "Notes" then click on "Assessments and Notes" (bottom left corner of screen). Then select appropriate discipline tab on top of screen.
--- NOTE | 2017-02-26 10:53 | PROG NOTE ---
[address] [address] PROGRESS NOTE PATIENT: TEDDY TAVERAS : 1925 MR#: [id number] ADMIT: 02/21/2017 JOB ID: [id number] DATE: 02/26/2017 SUBJECTIVE: The patient is seen on postoperative day two from his laparoscopic cholecystostomy tube. Overall, he continues to do well. He is having minimal pain. OBJECTIVE: He is alert and somewhat oriented this morning. His abdomen is soft, nontender, nondistended. His LIZETTE drain had some serous output. His cholecystostomy tube has pure bile in it. Yesterday, his LIZETTE drain put out 200 with an additional 70 overnight. His cholecystostomy tube put out for 445 yesterday with initial 180 overnight. His white blood cell count remains normal at 8.4, hematocrit stable at 33. His creatinine looks fine at 1.21. His bilirubin is normal at 0.3. ASSESSMENT AND PLAN: This is an 89-year-old man two days out from a laparoscopic cholecystostomy tube for acute cholecystitis. It is somewhat interesting that the cholecystostomy tube is already putting out pure bile. This would seem to suggest that his gallbladder is in continuity with his bile duct without obstruction. However, given the intraoperative findings and the fact that pus was drained, clearly he did have acute cholecystitis. At this point, I am going to obtain a cholangiogram through that cholecystostomy tube. If his bile ducts show no distal obstruction, then I will likely clamp that tube, remove his LIZETTE drain, and he can go home with plans to follow up with me in the near future.
[2017-02-26] MEDS: Piperacillin-Tazo 3.375 Gm Inj 3.375 GM in Dextrose 5% Minibag Plus 50 ML IV SCH ×2 (12:33→23:22)
--- NOTE | 2017-02-26 13:30 | NUR ---
MENTATION Patient has been lethargic this morning. Unable to administer PO meds. Patient woke up briefly when his son was here. Followed some instructions. Equal hand weed eradicator. BLE equal in strength. Per his daughter Verito-Patient is usually very sensitive to all kinds of meds and has been lethargic in the past after surgery. Switched to a stimulation diet by SPT. Unable to be seen by PT d/to his mentation. Via FELDT scale patients pain level is 0-2/10. No emesis noted. Dr. Devlin made aware. Care endorsed to Nehal Chau RN.
--- NOTE | 2017-02-26 13:30 | CONS ---
[address] [address] CONSULTATION REPORT PATIENT: TEDDY TAVERAS : 1925 MR#: [id number] ADMIT: 02/21/2017 JOB ID: [id number] DATE OF SERVICE: 02/26/2017 INFECTIOUS DISEASE CONSULTATION: I thank Dr. Aggie Pabon for this timely consult. REASON FOR CONSULTATION: Acute cholecystitis. HISTORY OF THE PRESENT ILLNESS: This is a INCOMPLETE DICTATION: Dictation ends here.
--- NOTE | 2017-02-26 13:46 | CONS ---
[address] [address] CONSULTATION REPORT PATIENT: TEDDY TAVERAS : 1925 MR#: [id number] ADMIT: 02/21/2017 JOB ID: [id number] DATE OF SERVICE: 02/26/2017 INFECTIOUS DISEASE CONSULTATION: I thank Dr. Aggie Pabon for this consult. REASON FOR CONSULTATION: Cholecystitis. HISTORY OF THE PRESENT ILLNESS: The patient is a complex 89-year-old gentleman well known to me from an admission in December of this year. Back in December, the patient presented with what appeared to be sepsis. At that time, he had high fevers, rigors and generalized confusion. he was brought to the emergency department and admitted. I saw him in consultation, and our concern was what the nature of his infection was, given that he had a very high procalcitonin level but no real focal findings. A fairly extensive workup was done, and no microbial etiology was found for this apparent episode of severe sepsis with mental status changes. The patient rapidly improved with a short course of broad-spectrum antibiotics. One of our concerns was possible gallbladder pathology, which was suggested by imaging but a HIDA scan was negative, and Surgery did not think the gallbladder was the issue. So, the patient was uneventfully discharged in early December. He now presents back to the ED on February 21, five days ago with syncope. The patient was at home and drinking coffee with his daughter and then he briefly lost consciousness. Then, 911 was called, and the patient was brought to the ED, where his pacer was evaluated and found to be benign but they did note that the patient had quite significant right upper quadrant pain. The patient eventually underwent another HIDA scan, which found evidence of cholecystitis, and he was taken to the operating room by Dr. Bridges on the of this month, two days ago. During that surgery a tremendous amount of adhesions and problems were encountered and eventually, a cholecystotomy tube was inserted and pus was drained from the gallbladder. A LIZETTE drain was also placed. It was noted during the surgery there was a great deal of adhesions, as well as easy bleeding in the liver in close proximity to the colon and many other problems. The patient did surprisingly well through this complex procedure and returned to the [facility] receiving Zosyn as empiric therapy for his cholecystitis. He has been somewhat improved since his surgery two days ago but yesterday, blood cultures including two bottles from a single set turned positive for coag-negative staph, and his antibiotics were changed from Zosyn to linezolid. I was consulted regarding appropriate antibiotics in this case. The patient was interviewed this morning. As he was back when I met him in December, he has fairly extensive dementia and is not able to offer much history. He really has little insight into his current condition and can offer really no details about how he got here or what is going on other than to say he has a little bit of pain in his right upper quadrant. No fevers, no chills, no sore throat and otherwise, feels okay by his report. This case was discussed with the surgical PA who had been involved in the surgery two days ago, and the patient was examined at the bedside with the nursing staff. 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 b. History of CHF. c. AFib. 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 2. Chronic renal insufficiency. 3. Diabetes. 4. Hypertension. 5. Bladder cancer. 6. Acute cholecystitis found during this admission. SOCIAL HISTORY: The patient served three years in the [employer] in the [place] [employer]. 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 He was a smoker from his 20s to his 60s but no more. He does not drink alcohol. He lives with his extended family on [facility]. FAMILY HISTORY: The patient cannot recall anything relevant about his family history today. REVIEW OF SYSTEMS: Very difficult. The patient is not fully alert and does suffer from what seems to be some dementia, though I do not see that in a formal list of diagnoses. He tells me today he has no significant headache, sore throat, fevers, chills, sweats, or shortness of breath. He does note he has some right upper quadrant pain. Other than that, he does not really answer much in the way of questions, or his answers are not intelligible. Remainder of the review of systems was basically unobtainable. PHYSICAL EXAMINATION: Reveals an elderly debilitated gentleman. Temp 36.7, pulse 86, respiratory rate 20, blood pressure 167/78. He is saturating fairly well on room air. He does have a bit of temporal wasting. His eyes without conjunctivitis or scleral icterus. Oral cavity is dry mucous membranes without obvious pharyngitis. Neck without JVD or adenopathy. He does have some degree of stiff neck but that is probably associated with his age of 89 more than anything else. Lungs are notable for a few crackles at the bases. He is not taking particularly deep breaths. Cardiac tones: Currently regular rate and rhythm. There is no significant murmur that I appreciate but his breath sounds are distant. Abdomen is notable for the presence of a cholecystotomy tube, as well as a LIZETTE on the right side. The patient has some minimal tenderness with palpation in the right upper quadrant. No palpable masses are noted. No suprapubic fullness is noted. He has no significant skin rash. No significant peripheral edema. He does have considerable wasting of all four extremities but he is able to move all four extremities. Formal neuro exam was not possible, as the patient was not very cooperative with the exam at this time. No evidence of synovitis is seen. In the mental status, as noted, he appears to be oriented only x1 this morning. LABORATORIES: Include white count 8400, platelets 262. Creatinine 1.21. LFT normal. Albumin 2.5. Urinalysis without white cells. MICROBIOLOGY STUDIES: From this admission we have a negative MRSA screen. We have 2/4 blood cultures growing coag-negative staph, and these are both Staph epidermidis. These are both from one set and were collected on the when he was admitted. There are no followup blood cultures. There is no culture of the purulent material from the gallbladder. IMAGING: In reviewing his imaging, his initial x-ray on the was clear. His abdominal CT showed a distended gallbladder with pericholecystic fluid consistent with cholecystitis. The followup HIDA scan ordered on that basis showed a nonfilling of the gallbladder consistent with acute cholecystitis. IMPRESSION: This patient clearly has acute cholecystitis. Whether or not this was also the cause of his December admission is unclear. In any event it became more clear that he had cholecystitis and on this admission, an attempt at cholecystectomy was done but because of many anatomic problems he ended up with a tube instead. I agree with the antibiotics, which up until recently included Zosyn, which I think is a reasonable choice in this situation, as pus was discovered when the tube was inserted. How long to continue with the Zosyn and how long to leave the tube in place are difficult questions which I will be discussing later with Dr. Bridges. As for the coag-negative staph in the blood, I am virtually certain these represent contaminants and see no reason to continue therapy. RECOMMENDATIONS: 1. Will discontinue linezolid. 2. Will reinstate Zosyn therapy. 3. I will discuss this case with Dr. Bridges and/or his assistants going forward with respect to how long to continue the antibiotics. 4. Will continue to closely follow this patient with you. Thank you very much for this consult. EDY
--- NOTE | 2017-02-26 13:57 | NUR ---
Assumed care of patient At 13:45. At CT at this time.
--- NOTE | 2017-02-26 13:58 | DRSVH ---
PROCEDURE: X-RAY T-TUBE CHOLANGIOGRAM INDICATIONS: r/o biliary obstruction COMPARISON: [facility], CT, CT ANGIO BRAIN AND NECK, 02/22/2017, 15:18. [facility], NM, NM HIDA SCAN WO CCK, 02/23/2017, 14:08. [facility], CT, CT ABD PELVIS W CON, 02/21/2017, 16:47. FINDINGS: Development Eng view demonstrates right upper quadrant surgical drain as well as percutaneous cholec ystostomy tube which is projected over the right upper quadrant. Cardiac pacer leads are present and incompletely visualized. With contrast administration, the gallbladder lumen is abnormal with small irregular focal outpouchin gs around the gallbladder fundus. There is opacification of the cystic duct, extrahepatic bile ducts and intrahepatic biliary tree. Visualized intrahepatic bile ducts appear grossly normal. Extrahepat ic bile duct is normal in caliber and no intraluminal filling defects are seen. There is prompt free spillage of contrast media into the duodenum. The attending physician was personally present in the room during the examination. IMPRESSION: 1. Patent percutaneous cholecystostomy. 2. Abnormal appearance gallbladder lumen and small focal outpouching of the gallbladder fundus, consi stent with severe inflammatory process. Small contained leaks cannot be excluded. Dictated by: Pedro Singleton RRA Interpreted: Tahira Rdz MD on 02/26/2017 at 13:52 Transcribed by: NARENDRA on 02/26/2017 at 13:57 Approved by: Tahira Rdz M.D. on 02/26/2017 at 14:12
--- NOTE | 2017-02-26 15:47 | PCM.PROC ---
Procedure Note Date of Service: Feb 26, 2017 Pre Procedure Diagnosis: Primary diagnosis: Chronic cholecystitis Other chronic conditions: 1. Diabetes type II 2. Coronary artery disease 3. CHF 4. Atrial fibrillation 5. Chronic renal disease 6. 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 Bladder cancer currently in remission since 1999 8. Hypertension 9. Dementia 10. Spinal stenosis 11. Former cigarette smoker Post Procedure Diagnosis: Same Procedure: LIZETTE removal Provider and Rad Tech: Arthur Mcdonald PA-C Indication for Procedure: No extravasation on T-tube cholangiogram today Procedural Analgesia: None Procedure Details: The suture was cut. Suction was taken off the LIZETTE bulb. The LIZETTE was removed. A dry dressing was applied. Specimen: Arthur Reddy PA-C Feb 26, 2017 15:47
[2017-02-26 16:56] VITALS: BP 149/70; PULSE 82; RESP 18; O2SAT 94
[2017-02-26 19:25] VITALS: BP 178/70; PULSE 60; RESP 16; O2SAT 96
--- NOTE | 2017-02-26 22:08 | PCM.PNMED ---
Subjective Date of Service Feb 26, 2017 Subjective Daughter is in the room, upset about many things: his diet, she does not think it has to be as restricted, says slurred speech this am is due to not having his dentures. He is asking to have a bm and did not initially talk. No other concerns Exam Vital Signs Vital Sign - Last Date Time Temp Pulse Resp B/P Pulse Ox O2 Delivery O2 Flow Rate FiO2 02/26/17 05:24 37.1 86 18 170/81 91 Room Air 02/25/17 09:08 3.00 Intake and Output 02/25/17 02/25/17 02/26/17 Cumulative From/Thru 15:00 23:00 07:00 02/21/17 14:33 - 02/26/17 06:35 Intake Total 924 ml 222 ml 9989 ml Output Total 330 ml 650 ml 3056 ml Balance 594 ml -428 ml 6933 ml Intake Oral 400 ml 100 ml 1986 ml IV Total 524 ml 122 ml 8003 ml Output Urine Total 400 ml 2161 ml Drainage Total 330 ml 250 ml 895 ml # Voids 3 14 # Bowel Movements 0 1 Exam General: NAD, laying in bed, green bile in the cholecystostomy ostomy bag HEENT: NCAT Eyes: [place] conjunctivae. No ptosis Neck: No masses, trachea midline, no thyromegaly, negative for DVT Lungs: CTA with normal respiratory effort, no crackles or wheezes anteriorly CV: RRR, no murmurs/rubs/gallops, normal PMI GI: Soft, non-tender with no hepatosplenomegaly Extremities: Without edema Skin: Warm and dry. Psych: A&O X3, with appropriate affect IVs and Medications IV Fluids Normal saline 100 mL/h Medications Reviewed: Medications were reviewed in detail Lab and Diagnostics Result Diagram: 02/26/1748 02/26/17547 Assessment & Plan 89-year-old male with syncope and abdominal painin Acute cholecystitis -Discontinue Zosyn -Start linezolid 600 twice a day -Gen. surgery following -Diet: Heart healthy -HIDA scan positive for acute cholecystitis -Blood cultures positive for coagulase negative Staphylococcus sensitive to linezolid -Tylenol and Toradol for pain management -LIZETTE drain in place: Removed -Ramirez-Solis tube in place -Follow up labs in the morning Elevated lipase and liver enzymes -Most likely secondary to the acute cholecystitis: Lipase normalized -AST and ALT improving -Continue to monitor Dysphagia: -- Speech therapy is consulted and they documented that patient is unable to follow directions consistently, was unable to swallow as directed, they have him on stimulation diet. Daughter is unhappy -- Dietary consult -- Palliative care consult -- Cut down on pain medications as it is possible that he is too drowsy most of the time Syncope -Pacemaker interrogated no signs of activity everything is currently operational and normal ([facility] interrogated the pacemaker) -CT angiogram of the head shows significant changes which are most likely due to the patient's syncope -Troponins are mildly elevated but this seems to be the patient's baseline -Echo: Only slight change and elevated right ventricular pressure compared to previous echo all other changes were similar to previous echo History of heart disease and previous [place] with Elevated troponins -Troponins most likely elevated secondary to demand ischemia (most likely chronic) -Continue aspirin -Continue metoprolol Diabetes -Continue to hold glyburide as patient's blood glucoses within normal limits -Insulin sliding scale -Accu-Cheks before meals and at bedtime Hypertension -Currently controlled -Continue lisinopril and metoprolol Dementia -Currently stable Physical deconditioning (present on admission) -PT and OT evaluation: They documented that patient is too drowsy, pain medications and reduced, nursing staff is asked to get patient up in into the chair History of bladder cancer (currently stable) Code Status: Full code DVT prophylaxis: SCDs and Lovenox Diet: Clear liquids for today and by mouth at midnight Disposition: The patient is currently progressing well and the patient seemed to tolerate his procedure well yesterday. Patient has been switched over to nonnarcotic pain medication as the narcotic pain medication seems to be too strong for the patient causing him to be tired throughout the day. Patient has needed stimulation diet. Ramirez-Solis drain was still need to be in place for 6 weeks and follow-up with Dr. Bridges. Power of Dimethylaniline Sulfator Operator: Lilli De Dios (Daughter) [phone] VTE Mechanical Devices: Intermittant Pneumatic CD Resuscitation Status: CPR: Attempt Resuscitation Limited Interventions: Compressions Aimee Devlin DO Feb 26, 2017 07:22
[2017-02-27 00:44] VITALS: BP 165/70; PULSE 60; RESP 18; O2SAT 95
[2017-02-27] MEDS: 0.9% Sodium Chloride 1,000 ML IV SCH ×2 (01:31→13:53)
--- NOTE | 2017-02-27 03:40 | NUR ---
IV access / family involvement Pt removed own IV access without family being aware of situation, first attempt to restart failed. Family at bedside was critical and disrespectful of staff management of situation. Provided information to family related to hospital routines and systems, attempted to provide supportive emotional climate to pt and family with clear communication of plan of care and expectations for shift care. IV access successfully obtained by alternate staff member, IV fluids and antibiotics infusing per orders. Pt provided with fluids by straw by family member without evidence of choking, safe swallow achieved, family educated about swallow restrictions. Family attempts to provide support to pt on occasion hindered staff from performing functions to highest level of ability. Unable to obtain order for probiotic medication requested by family until day shift Mds available to review. Hourly rounding ongoing.
[2017-02-27 06:40] LABS: Mean Corpuscular Hemoglobin 29.1 pg (27.0-35.0); Mean Corpuscular Volume 89.6 fL (81-100)
[2017-02-27] MEDS: Insulin LISPRO 300 Unit/3 mL Inj SUBQ SCH ×4 (07:18→22:00)
[2017-02-27 09:00] VITALS: BP 180/70; PULSE 60; RESP 18; O2SAT 95
--- NOTE | 2017-02-27 10:30 | PROG NOTE ---
[address] [address] PROGRESS NOTE PATIENT: TEDDY TAVERAS : 1925 MR#: [id number] ADMIT: 02/21/2017 JOB ID: [id number] DATE: 02/27/2017 SUBJECTIVE: The patient is seen postoperative day three from his laparoscopic cholecystostomy tube placement. Yesterday I obtained a cholangiogram through the cholecystostomy tube. Interestingly it shows that the obstruction of the gallbladder is resolving with free flow from the gallbladder down into the bile ducts and duodenum. He clinically remains well. I also reviewed his case with Dr. Ferris and we agreed on a short course of oral antibiotics which can be completed as an outpatient. OBJECTIVE: He has remained afebrile and hemodynamically normal this morning. He is much himself. His abdomen is soft, nontender, nondistended. His LIZETTE drain was removed last night. His cholecystostomy tube has pure bile in it. His white blood cell count remains normal. His cholecystostomy tube put out 380 yesterday and an initial 250 overnight. ASSESSMENT AND PLAN: This is an 89-year-old man three days out from laparoscopic cholecystostomy tube for acute cholecystitis which is resolving. At this point, from my perspective, the patient is fine to go home. He can complete the short course of oral antibiotics as recommended by Dr. Ferris. With respect to his cholecystostomy tube, I am going to leave a drain in for now. He can go home with it draining, but I have asked his daughter to keep track of how much is coming out and he can followup with me next week. I certainly do not want him to drain his entire bile volume into that bag as that will cause a certain amount of GI upset. I will like clamp that tube when he returns to see me in the office next week. I plan on pulling it out in 1-1/2 to 2 months.
--- NOTE | 2017-02-27 10:31 | NUR ---
ADWOA: Patient not alert and oriented, daughter is available and TEST CELL TECHNICIAN is following up for signature.
--- NOTE | 2017-02-27 11:14 | NUR ---
Palliative Care Palliative Care received order from Dr Devlin 02/26/17 (late day) to assist with goals of care. Dr Bower met briefly with patient/family this morning. Pt will be discharging today and family does not want to meet with Palliative Care. Order for consult cancelled per Dr Bower. Dr Devlin has been informed that Palliative will not be involved. Patient lives with his daughter, Alethea. Alethea De Dios (daughter/DPOA) [phone] Justin Torres (son) [phone] Palliative Care order cancelled 02/27/17. Sonali La
--- NOTE | 2017-02-27 11:24 | PCM.PALLBR ---
Palliative Brief Note Date of Service Feb 27, 2017 . Consultation request received from Dr. Devlin of [place] team. I was on OSC visiting other patients when a woman approached me, and inquired ' if it was appropriate that somebody had been here for 5 days without any physical therapy?' I spoke with her for several minutes, noting that that might not be unreasonable given the patient's other medical conditions/status/ strength and suggested that she talk with her family member's nurse and physician regarding her concerns. She said she appreciated my advice and walked off down the grossman. Later, I arrived at patient's room and when I entered the woman was there and we reintroduced ourselves. I also introduced myself to the patient and spoke with him- he noted that he is feeling better and had no pain. This time, she expressed extreme dissatisfaction with almost everything about his hospitalization and care- she is unhappy with the physicians during this and his previous admission, with food, with activity, with his overall treatment, etc. She insisted that her plan was to take the patient home today. I listened attentively and politely, validating her concerns and offering to assist in communications with other caregivers. Upon leaving his room, I spoke with Dr. Ferris of infectious disease and then with Dr. Devlin of medicine. Dr. Ferris felt that patient could be discharged today and we talked about outpatient antibiotic therapy; he had spoken earlier to Dr. Bridges of surgery who also apparently feels discharge would be reasonable, as did Dr. Devlin. As plan is for patient to be discharged today and his family is quite firm regarding their wishes for his care and treatment, no further role for palliative medicine at this time and I have canceled the formal consultation. If plans change and he remains in the hospital please contact our office and we will be happy to reengage. No formal charges for today's visits with the patient and his daughter. Paulo Bower MD Feb 27, 2017 11:24
--- NOTE | 2017-02-27 11:36 | PCM.DIMED ---
Discharge Instructions Date of Service Feb 27, 2017 Dates of Hospitalization Feb 21, 2017 at 17:48 Discharge Diagnosis Discharge Diagnosis acute cholecystitis s/p cholecystostomy, syncope, hypertension, diabetes, dementia Diet Other (pureed diet) Activity Other (as determined by PT/OT) Call your provider Fever or Chills, Shortness of breath, Bleeding, Chest pain, Vomitting, Excessive diarrhea, Weakness (unilateral), Other Patient Instructions Please follow pureed diet as recommended by speech therapy. Please use Augmentin for 4 days, take probiotic with it. F/U with Dr. Bridges, your surgeon in one week. Follow up with your pcp in 2 weeks Please keep track of the drainage from the cholecystostomy tube and present to Dr. Bridges. Follow-up plan F/U with Dr. Bridges, surgeon in one week. F/U with PCP in 2 weeks Follow-up Provider: Twin Bridges MD Follow-up with PCP in: 2 weeks Aimee Devlin DO Feb 27, 2017 11:36
[2017-02-27] MEDS ORDERED: LISI-571 PO (11:38)
[2017-02-27] MEDS ORDERED: AGM875T PO (11:38)
--- NOTE | 2017-02-27 12:01 | PROG NOTE ---
[address] [address] PROGRESS NOTE PATIENT: TEDDY TAVERAS : 1925 MR#: [id number] ADMIT: 02/21/2017 JOB ID: [id number] DATE: 02/27/2017 INFECTIOUS DISEASE FOLLOWUP NOTE: REASON FOR FOLLOWUP: Acute cholecystitis requiring placement of a cholecystotomy tube for drainage with a coincident Staph epi bacteremia, which is likely a contaminant. INTERVAL HISTORY: The patient is a difficult historian due to mental status issues but he does tell us this morning he is not having fevers, chills, or overt pain. He still has a tube present in the right side of his chest. He additionally denies being significantly short of breath. PHYSICAL EXAMINATION: Reveals an afebrile gentleman, in no acute distress. Temp 36.6, pulse 60, respiratory rate 18, blood pressure 118/70, saturating well on room air. Examination of the eyes reveals no conjunctivitis. Oral cavity is benign. Lungs with decreased breath sounds bilaterally but without much in the way of rales or rhonchi. Abdomen: Mild right upper quadrant tenderness. Still with drain in place. Cholecystotomy drain in place. No significant skin rash noted. LABORATORIES: Include white count 7300. Creatinine 0.91. LFT completely normal. His alk phos has been gradually dropping. Micro studies include this one set of blood cultures, both of which grew coag-negative staph on the . The other set of blood cultures was, however, negative. Cholangiogram done yesterday shows a percutaneous cholecystotomy tube in place, abnormal gallbladder lumen with small outpouching of the gallbladder, fundus consistent with continued inflammation. A note from Dr. Bridges this morning was reviewed. He plans to leave the drain in place, and follow the patient up next week. Dr. Bridges and I discussed antibiotic duration yesterday on the phone and decided that a few more days of broad-spectrum oral antibiotics would be reasonable in this case. RECOMMENDATIONS: 1. The patient's daughter is anxious to take the patient home today, and I see no infectious disease contraindication. He has already had 3-1/2 days of IV Zosyn, and the exact duration of therapy for an acute cholecystitis episode such as this is unclear, though the literature suggests 4-7 days would be reasonable. So, I think we could switch today to Augmentin. 2. Augmentin 875 p.o. b.i.d. for about 4 more days. 3. Some topical therapy such as Lotrimin could be prescribed, as the daughter is concerned about a recrudescence of a yeast infection on his perineum that troubled him after his December discharge. Thank you very much, and Infectious Disease will be signing off at this point.
--- NOTE | 2017-02-27 13:58 | NUR ---
Nette Plata CM at [facility] and she is approving patient for transfer to SNF today. Per DOPE DRY HOUSE OPERATOR patient's daughters going to tour [facility]. Updated DOPE DRY HOUSE OPERATOR Addendum: 02/27/17 at 1518 by AGUSTÍN BRANHAM CM Gave access to [facility], DERIK and Radha per DOPE DRY HOUSE OPERATOR
--- NOTE | 2017-02-27 14:23 | NUR ---
i went into pts room with the Rn helping reposition and set him up for breakfast when asked by the Rn to get his lower dentures daughter (Trinidad) intervined and got them several times she stepped in the way obstructed patient care. She then ordered us to do a shower and we said we would try to locate a shower chair and she said oh "how do you guys like working in a place without proper equipment. i reported to the charge nurse that she would like to speak to her and she came but she continued to complain my day has been 5 days without a shower. We offered to shower him in a wheelchair and she the daughter was ok with that and the patient was saying no i dont want a shower it is to cold its to much i have been through enough. But Trinidad kept demanding he needed a shower so we showered him which he did not enjoy
[2017-02-27 14:38] VITALS: BP 174/86; PULSE 62; RESP 19; O2SAT 95
[2017-02-27 18:06] VITALS: BP 166/78; PULSE 62; RESP 18; O2SAT 95
--- NOTE | 2017-02-27 18:41 | NUR ---
Social Work: Continued Discharge Planning Data & Assessment: SW spoke with patient's daughter, Alethea TorresCATHI, and notified her that patient was discharging. Alethea CATHI Torres stated that she was unable to care for patient at home and requested time to tour SNF facilities. Patient's daughter notified SW that she chose [facility] and [facility] called and stated that they are able to accept the patient. Patient insurance approved SNF. Patient is likely to discharge to [facility] on 02/28/17 via BLS. SW will continue to follow and assist patient throughout stay. SW will continue to follow and assist patient throughout stay. Plan: Patient will discharge to [facility] wia BLS on 02/28/17. Patient PASRR is on the chart. SW will continue to follow and assist patient throughout stay. Katelyn Mejia, SHANTEL, ACM
--- NOTE | 2017-02-27 18:49 | NUR ---
Activity Patient up with PT to W/C with max assist. Patient Q2 turned. Patient denied pain and nausea this shift. Patient orientated to self only. Daughter at bedside. Call light and tray table within reach. Will continue to monitor patient hourly.
[2017-02-27 20:32] VITALS: BP 172/71; PULSE 65; RESP 20; O2SAT 96
[2017-02-27] MEDS: Amoxicillin-Clav 875-125 mg Tablet PO SCH (20:50)
--- NOTE | 2017-02-27 21:18 | PCM.PNMED ---
Subjective Date of Service Feb 27, 2017 Subjective Try to see patient and examine. Patient's daughter entered an examiner was Done with the physical exam, started complaining about it every single person in the hospital and did not allow examination. Physical therapy has seen the patient and he is requiring a lot of assistance for moving around. He continues to be on pured diet. Surgery has signed off. Exam Vital Signs Vital Sign - Last Date Time Temp Pulse Resp B/P Pulse Ox O2 Delivery O2 Flow Rate FiO2 02/27/17 20:32 36.7 65 20 172/71 96 Room Air 02/25/17 09:08 3.00 Intake and Output 02/26/17 02/26/17 02/27/17 Cumulative From/Thru 15:00 23:00 07:00 02/21/17 14:33 - 02/27/17 06:28 Intake Total 50 ml 1793 ml 57198 ml Output Total 200 ml 250 ml 3506 ml Balance -150 ml 1543 ml 8326 ml Intake Oral 50 ml 100 ml 2136 ml IV Total 1693 ml 9696 ml Output Urine Total 2161 ml Drainage Total 200 ml 250 ml 1345 ml # Voids 2 2 18 # Bowel Movements 1 0 2 Exam General: NAD, laying in bed HEENT: NCAT, missing dentition Eyes: [place] conjunctivae. Neck: No masses, trachea midline, no thyromegaly Lungs: CTA with normal respiratory effort, no crackles or wheezes CV: RRR, no murmurs/rubs/gallops Skin: Warm and dry. Area of biliary ostomy site looks clean and dry, dark biliary liquid drainage noted in the bag IVs and Medications IV Fluids 80 mL per hour normal saline Medications Reviewed: Medications were reviewed in detail Lab and Diagnostics Result Diagram: 02/27/17 0557 02/27/17 0557 Assessment & Plan 89-year-old male with syncope and abdominal painin Acute cholecystitis -- Status post cholecystostomy -Discontinue Zosyn today. started Augmentin for 4 days. We appreciate ID recommendations in this matter -Start linezolid 600 twice a day -Gen. surgery following: They proved patient for discharge today -Diet: Pured -HIDA scan positive for acute cholecystitis -Blood cultures positive for cardiac negative staph thought to be contaminant -Tylenol and Toradol for pain management -LIZETTE drain in place: Removed -Ramirez-Solis tube in place: Still draining dark biliary fluid. Surgery plans to follow with patient in a week after discharge and clamp the tube -Follow up labs in the morning Elevated lipase and liver enzymes -Most likely secondary to the acute cholecystitis: Lipase normalized -AST and ALT improving -Continue to monitor Dysphagia: -- Speech therapy is consulted and they documented that patient is unable to follow directions consistently, was unable to swallow as directed, they have him on stimulation diet. Daughter is unhappy -- Dietary consult -- Palliative care consult: We appreciate the recommendations -- Cut down on pain medications as it is possible that he is too drowsy most of the time: This seems to improve patient's alertness Syncope -Pacemaker interrogated no signs of activity everything is currently operational and normal ([facility] interrogated the pacemaker) -CT angiogram of the head shows significant changes which are most likely due to the patient's syncope -Troponins are mildly elevated but this seems to be the patient's baseline -Echo: Only slight change and elevated right ventricular pressure compared to previous echo all other changes were similar to previous echo History of heart disease and previous [place] with Elevated troponins -Troponins most likely elevated secondary to demand ischemia (most likely chronic) -Continue aspirin -Continue metoprolol Diabetes -Continue to hold glyburide as patient's blood glucoses within normal limits -Insulin sliding scale -Accu-Cheks before meals and at bedtime Hypertension -Currently controlled -Continue lisinopril and metoprolol Dementia -Currently stable Physical deconditioning (present on admission) -PT and OT evaluation: They documented that patient is too drowsy, pain medications and reduced, nursing staff is asked to get patient up in into the chair History of bladder cancer (currently stable) Code Status: Full code DVT prophylaxis: SCDs and Lovenox Diet: Pured Disposition: The patient is currently progressing well and the patient seemed to tolerate his procedure well yesterday. Patient has been switched over to mostly nonnarcotic pain medication as the narcotic pain medication seems to be too strong for the patient causing him to be tired throughout the day. Patient has needed. Pured Diet during this admission. Ramirez-Solis drain was still need to be in place for 6 weeks and follow-up with Dr. Bridges. Patient's another daughter, also his POA Lilli is contacted today regarding patient's discharge. This daughter is more involved in dad's care, lives with dad. She feels that her father needs [facility] level care and she is trying to find him a nice one. She apologizes for the problems her sister is causing in the hospital. Power of Construction Craft Laborer: Lilli De Dios (Daughter) [phone] Pain Evaluation: Adequate Pain Control VTE Mechanical Devices: Intermittant Pneumatic CD Resuscitation Status: CPR: Attempt Resuscitation Limited Interventions: Compressions Aimee Devlin DO Feb 27, 2017 21:18
[2017-02-28] MEDS: 0.9% Sodium Chloride 1,000 ML IV SCH (00:33)
--- NOTE | 2017-02-28 03:57 | NUR ---
Mentation Pt oriented only to self, uncooperative with care. Appears less interactive than on previous night; required multiple cues to swallow medications, no effort to talk with staff, resisted personal care. Continues to be incontinent, had a large, loose BM. Turns for comfort and skin care continue, skin in very good condition, no evidence of redness or breakdown, heels floated on pillows. Hourly rounding ongoing.
[2017-02-28 05:52] VITALS: BP 160/67; PULSE 76; RESP 18; O2SAT 93
[2017-02-28] MEDS: Insulin LISPRO 300 Unit/3 mL Inj SUBQ SCH ×2 (08:00→12:00)
--- NOTE | 2017-02-28 08:27 | NUR ---
[facility] signed
[2017-02-28] MEDS ORDERED: LISI-571 PO ×2 (09:54→09:58)
[2017-02-28] MEDS ORDERED: FOLI1TAB18 PO (09:58)
[2017-02-28] MEDS ORDERED: MAGN100T5 PO (09:58)
[2017-02-28] MEDS ORDERED: METO25TA6 PO (09:58)
[2017-02-28] MEDS ORDERED: ASPI-973 PO (09:58)
[2017-02-28] MEDS ORDERED: MULT-1018 PO (09:58)
[2017-02-28] MEDS ORDERED: GLYB1.253 PO (09:58)
[2017-02-28] MEDS ORDERED: IBUP200C PO (09:58)
[2017-02-28] MEDS ORDERED: CHOL200047 PO (09:58)
--- NOTE | 2017-02-28 10:41 | NUR ---
Social Work-readiness for discharge: Data:EMR Reviewed. Pt is on day 7 of hospitalization for acute blanca per H&P. Pt may be medically stable later today or tomorrow. PT has seen pt and recommended SNF placement. SW confirmed with Carine at [facility] that they are able to accept pt today. [employer] insurance authorization has been obtained. Paperwork in the chart. SW will continue to follow. Assessment:Pt who would benefit from SNF. Plan:Pt to discharge to [facility] when medically stable. [employer] insurance authorization has been obtained. Paperwork in the chart. SW will continue to follow. KAITLIN Hall
[2017-02-28] MEDS: Amoxicillin-Clav 875-125 mg Tablet PO SCH (10:43)
--- NOTE | 2017-02-28 10:44 | NUR ---
Social Work-discharge: Data:EMR Reviewed. Pt is on day 7 of hospitalization for acute blanca per H&P. Pt is medically stable for discharge today. PT continues to recommend SNF. Insurance authorization has been obtained. SARAI spoke with Carine at [facility] who confirms they can accept pt today. Carine has arranged transport for 1230 via cabulance. SARAI faxed orders and created packet. SARAI updated pt and daughter Alethea at [facility], both agreeable to plan. RN,UC,pt/family, and [facility] are all updated and agreeable to plan. Assessment:Pt to benefit from SNF. Plan:Pt to discharge to [facility] today via cabualnce at 1230. Insurance authorization has been obtained. RN,UC,pt/family, and [facility] are all updated and agreeable to plan. KAITLIN Hall
[2017-02-28] MEDS ORDERED: BENZ100C8 PO (11:04)
--- NOTE | 2017-02-28 11:22 | PROG NOTE ---
[address] [address] PROGRESS NOTE PATIENT: TEDDY TAVERAS : 1925 MR#: [id number] ADMIT: 02/21/2017 JOB ID: [id number] DATE: 02/28/2017 SUBJECTIVE: The patient is seen in followup. He has a percutaneous transhepatic cholecystostomy tube. It continues to drain clear bile. He seems to be tolerating it well. It was placed laparoscopically by Dr. Bridges. IMPRESSION: Doing well. PLAN: He can be discharged at any time from our perspective. He should return to see Dr. Bridges in roughly 3-4 weeks. The drain will need to be in 4-6 weeks, so as to establish a tract prior to removal.
--- NOTE | 2017-02-28 12:39 | NUR ---
DISCHARGE Patient discharged to [facility] today. patient transported via cabulance . Daughter Alethea present and took all belongings with her. Prior to discharge patient noted to have some coughing after taking morning medications. Daughter request patient have thin fluids with meds . Daughter did know that patient was evaluated by speech and nectar thick liquids referred. patient with T drain with bile drainage to right upper abdomen. Patient very weak transferred to wheelchair with gait belt and 2 assist. Addendum: 02/28/17 at 1244 by FLACA HOWARD RN Patients saline lock did not get taken out before discharge so facility will be notified.
--- NOTE | 2017-02-28 13:05 | DRSVH ---
PROCEDURE: US VENOUS ARM DUPLEX UNILATERAL, LEFT INDICATIONS: swollen left arm TECHNIQUE: Real-time imaging, as well as color and pulse Doppler interrogation, was performed of the left upper extremity deep veins from the inferior neck to the antecubital fossa. COMPARISON: None. FINDINGS: The internal jugular vein, visualized portions of the subclavian vein, axillary, and brach ial veins are free of intraluminal thrombus. Where physically possible, the veins are normally compr essible. Color and pulse Doppler demonstrate normal intraluminal flow, with expected phasicity and p ulsatility. Additional scanning of the cephalic and basilic veins of the superficial system demonstr ate normal compressibility, without thrombus. IMPRESSION: No DVT found left upper extremity. Dictated by: Mal Conte M.D. on 02/28/2017 at 13:03 Approved by: Mal Conte M.D. on 02/28/2017 at 13:03
--- NOTE | 2017-02-28 21:39 | PCM.DC.MED ---
Discharge Summary Date of Service Feb 28, 2017 Dates of Hospitalization Date of Hospital Admission Feb 21, 2017 at 17:48 Date of Discharge: Feb 28, 2017 Providers: Admitting Physician: Aggie Pabon DO Primary Care Physician: Aly Duncan MD Attending Physician: Aggie Pabon DO Diagnosis at Time of Discharge Diagnosis at Time of Discharge acute cholecystitis s/p cholecystostomy, syncope, hypertension, diabetes, dementia Consultations Gen. surgery, PT/OT, speech therapy Procedures XRay, CTs & MRIs [facility] [place] [address] Patient Name: TEDDY TAVERAS MR#: [id number] Location: [facility] Ordering Phys: Leno Roblero DO Date of Service: 02/28/17 1102 PROCEDURE: US VENOUS ARM DUPLEX UNILATERAL, LEFT INDICATIONS: swollen left arm TECHNIQUE: Real-time imaging, as well as color and pulse Doppler interrogation, was performed of the left upper extremity deep veins from the inferior neck to the antecubital fossa. COMPARISON: None. FINDINGS: The internal jugular vein, visualized portions of the subclavian vein , axillary, and brachial veins are free of intraluminal thrombus. Where physically possible, the veins are normally compressible. Color and pulse Doppler demonstrate normal intraluminal flow, with expected phasicity and pulsatility. Additional scanning of the cephalic and basilic veins of the superficial system demonstrate normal compressibility, without thrombus. IMPRESSION: No DVT found left upper extremity. Dictated by: Mal Conte M.D. on 02/28/2017 at 13:03 Approved by: Mal Conte M.D. on 02/28/2017 at 13:03 [facility] [place] [address] Patient Name: TEDDY TAVERAS MR#: [id number] Location: [facility] Ordering Phys: Twin Bridges MD Date of Service: 02/26/17 1029 PROCEDURE: X-RAY T-TUBE CHOLANGIOGRAM INDICATIONS: r/o biliary obstruction COMPARISON: [facility], CT, CT ANGIO BRAIN AND NECK, 02/22/2017, 15: 18. [facility], NM, NM HIDA SCAN WO CCK, 02/23/2017, 14:08. [facility], CT, CT ABD PELVIS W CON, 02/21/2017, 16:47. FINDINGS: Commercial Decorator view demonstrates right upper quadrant surgical drain as well as percutaneous cholecystostomy tube which is projected over the right upper quadrant. Cardiac pacer leads are present and incompletely visualized. With contrast administration, the gallbladder lumen is abnormal with small irregular focal outpouchings around the gallbladder fundus. There is opacification of the cystic duct, extrahepatic bile ducts and intrahepatic biliary tree. Visualized intrahepatic bile ducts appear grossly normal. Extrahepatic bile duct is normal in caliber and no intraluminal filling defects are seen. There is prompt free spillage of contrast media into the duodenum. The attending physician was personally present in the room during the examination. IMPRESSION: 1. Patent percutaneous cholecystostomy. 2. Abnormal appearance gallbladder lumen and small focal outpouching of the gallbladder fundus, consistent with severe inflammatory process. Small contained leaks cannot be excluded. Dictated by: Pedro Singleton RRA Interpreted: Tahira Rdz MD on 02/26/2017 at 13:52 Transcribed by: NARENDRA on 02/26/2017 at 13:57 Approved by: Tahira Rdz M.D. on 02/26/2017 at 14:12 [facility] Diagnostic Imaging Department [place], [place] [id number] Patient Name: TEDDY TAVERAS MR#: [id number] Location: [facility] Ordering Phys: Adalberto De Dios MD Date of Service: 02/23/17 1125 PROCEDURE: NM HIDA SCAN WITHOUT CCK RADIOPHARMACEUTICAL: 5.3 mCi Tc-99m mebrofenin IV. INDICATIONS: 89 year-old male with dementia and suspected acute cholecystitis. TECHNIQUE: Following intravenous administration of Tc-99m mebrofenin, sequential anterior abdominal images were obtained through at least 2 hours. COMPARISON: [facility], CT, CT ABD PELVIS W CON, 02/21/2017, 16:47. Normal, NM, NM HIDA SCAN W CCK STD, 12/15/2016, 8:29. FINDINGS: There is normal tracer uptake and excretion by the liver. There is normal visualization of intrahepatic ducts, common bile duct, but not the gallbladder. There is normal tracer excretion into duodenum. IMPRESSION: Nonfilling of the gallbladder lumen with radiotracer, consistent with acute cholecystitis in conjunction with CT findings. Dictated by: Vince Loredo M.D. on 02/23/2017 at 16:34 Approved by: Vince Loredo M.D. on 02/23/2017 at 16:38 [facility] [place] [address] Patient Name: TEDDY TAVERAS MR#: [id number] Location: [facility] Ordering Phys: Pepper Aggie Saucedo Date of Service: 02/22/17 1002 PROCEDURE: CT ANGIO HEAD AND NECK (P) INDICATIONS: syncope TECHNIQUE: Pre-contrast 4.5 mm thick sections acquired from the foramen magnum to the vertex. After the administration of intravenous contrast, 1 mm thick sections acquired from the aortic arch through the [place]. Post-contrast 4.5 mm thick sections then re-acquired from the foramen magnum to the vertex. 3- dimensional lzievli-kcvkxjxav-uleybzsuir (MIP) and/or volume rendering reformats were acquired of the central intracranial vasculature and neck separately. For radiation dose reduction, the following was used: automated exposure control, adjustment of mA and/or kV according to patient size. COMPARISON: [facility], CR, XR CHEST 1VW (PORTABLE), 12/10/2016, 13: 48. FINDINGS: Image quality: Excellent. BRAIN: CSF spaces: Ventricles are normal in size and shape. Basal cisterns are patent. No extra-axial fluid collections. Brain: No midline shift. No intracranial bleeds or masses. There is moderate cerebral volume loss. Moderate periventricular matter chronic small vessel ischemic changes are present. Skull and face: Calvarium and facial bones appear intact, without suspicious lesions. Orbits appear normal. Sinuses: Sinuses and mastoids are clear. HEAD CT ANGIOGRAPHY: Anterior circulation: Intracranial internal carotid arteries are suboptimally visualized due to technique. There is moderate to severe atherosclerotic plaques in supraclinoid internal carotid arteries bilaterally. There is possible under some at the tip of the right internal carotid artery. The flow within the paired anterior cerebral arteries is normal and symmetric. The flow within the middle cerebral arteries is normal and symmetric. The anterior communicating artery is seen. No aneurysms are seen. Posterior circulation: The left vertebral artery is dominant. The distal left vertebral artery has a posterior fat plaque with moderate stenosis (50%). The right vertebral artery is small, which is likely congenital. The terminal right vertebral artery is not visualized, which could be congenital hypoplasia or occlusion. Visualized portions of the left vertebral artery demonstrates normal caliber, and continuous to form a normal appearing basilar artery. There is a origin of the right posterior cerebral artery. Flow within the posterior cerebral arteries is normal and symmetric. No aneurysms are seen. NECK CT ANGIOGRAPHY: Carotid system: The great vessels demonstrate a conventional anatomy as they arise from the aortic arch. The origins of the common carotid arteries appear patent. The common carotid arteries demonstrate normal caliber and courses. There are densely calcified plaques at the bifurcation regions bilaterally with moderate stenosis (60-70%). The internal carotid arteries demonstrate normal calibers and courses. Posterior circulation: The origins of the vertebral arteries are not well-seen due to the strong streaking artifact from adjacent venous structures. The more superior extracranial portions of both vertebral arteries also demonstrate normal courses and calibers. Soft tissues: Visualized neck soft tissues demonstrate no suspicious abnormalities. There are multiple venous collaterals in the lower neck, suggesting left subclavian in obstruction (left-sided injection). Bones: No suspicious bony lesions. Visualized cervical spine appears normally aligned. IMPRESSION: 1. No acute intracranial abnormalities. 2. Moderate cerebral volume loss and chronic microvascular ischemic changes. 3. origin of the right posterior cerebral artery. 4. Dominant left vertebral artery. There is moderate stenosis (50%) in the distal left vertebral artery. 5. 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 6. Sub-optimal visualization of the supraclinoid internal carotid arteries bilaterally. There are severe calcified plaques in the supraclinoid internal carotid arteries bilaterally. 7. Possible small aneurysm is noted at the tip of the distal right internal carotid artery. If clinically indicated, MR cerebral angiogram may be helpful. 8. 60-70% stenosis at the carotid bifurcations bilaterally. 9. Vertebral artery origins are not well seen. Distally, the vertebral arteries are thickened bilaterally. 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 Dictated by: Tahira Rdz M.D. on 02/22/2017 at 16:25 Transcribed by: PAT on 02/22/2017 at 16:50 Approved by: Tahira Rdz M.D. on 02/22/2017 at 19:51 [facility] [place] [address] Patient Name: TEDDY TAVERAS MR#: [id number] Location: [facility] [place] Ordering Phys: Javier Palomino Date of Service: 02/21/17 3754 PROCEDURE: CT ABDOMEN AND PELVIS WITH CONTRAST ([id number]) INDICATIONS: abnormal LFT TECHNIQUE: After the administration of intravenous contrast, 5 mm thick sections acquired from the diaphragm to the symphysis. 5 mm coronal and sagittal reformats were acquired. For radiation dose reduction, the following was used: automated exposure control, adjustment of mA and/or kV according to patient size. COMPARISON: [facility], CT, CHEST W/O CONTRAST, 03/07/2013, 9:34. [facility], US, ABDOMEN LTD, 12/13/2016, 7:56. [facility], CT, CT ABD WO CON, 12/11/2016, 21:29. FINDINGS: Image quality: Excellent. ABDOMEN: Lung bases: There is mild basilar atelectasis. No pleural effusion. No pericardial effusion. A 3 mm diameter pulmonary nodule is present at the left lung base (series 5, image 8). Solid organs: Liver and spleen are normal in size and enhancement. Gallbladder is diffusely enlarged. There is circumferential wall thickening and hyperemia of the wall. There is pericholecystic fluid present. Biliary system is non dilated. Pancreas enhances normally. No right adrenal nodules. Intermediate density left adrenal gland mass is redemonstrated. Kidneys demonstrate normal size and enhancement, without hydronephrosis. Peritoneum and bowel: Bowel loops demonstrate normal wall thickness and caliber. The appendix is not visualized; however there is no discrete right lower quadrant fluid or fat stranding to suggest acute appendicitis. No free fluid or air. Nodes and vessels: No retroperitoneal or mesenteric adenopathy by size criteria. The fusiform dilatation of the infrarenal abdominal aorta is redemonstrated measuring up to 3.3 cm in axial diameter. Dense atheromatous calcifications are present throughout the aorta and iliac arteries. Miscellaneous: No ventral hernias. PELVIS: Genitourinary: Bladder wall thickness is normal. Miscellaneous: No inguinal hernias or adenopathy. Bones: No suspicious bony lesions. No vertebral body compression fractures. Severe degenerative changes are present throughout the lumbar spine. IMPRESSION: 1. 1. Distended gallbladder with thickened hyperemic-appearing wall and pericholecystic fluid suspicious for acute cholecystitis. This finding was discussed with Dr. Greenberg at 5:05 PM on 02/21/17. 2. Intermediate density left adrenal gland mass. Nonemergent adrenal mass protocol recommended to further characterize finding if clinically indicated. 3. 3 mm left basilar pulmonary nodule. Please see followup guidelines below. Note: Fleischner Society criteria for lung nodule followup. Nodule size (mm)Low-risk patientHigh-risk [id number] follow-up neededFollow-up at 12 mo; if no change, no further follow-up>[id number]-gs CT at 12 mo; if no change, no further follow-up needed.Initial follow-up CT at 6-12 mo, then 18-24 mo if no change. >6-8Initial follow-up CT at 6-12 mo, then 18-24 mo if no change. Initial follow-up CT at 3-6 mo, then 9-12 mo and 24 mo if no change. > 8Follow-up CT at 3, 9, 24 mo. Or PET and/or biopsy.Same as for low-risk pts. Non-solid (ground-glass) or partly solid nodules may require longer follow-up to exclude indolent adenocarcinoma. Dictated by: Ivett Sanders M.D. on 02/21/2017 at 16:58 Approved by: Ivett Sanders M.D. on 02/21/2017 at 17:11 [facility] Diagnostic Imaging Department [place], [place] [id number] Patient Name: TEDDY TAVERAS MR#: [id number] Location: [facility] Ordering Phys: Javier Palomino DO Date of Service: 02/21/17 1455 PROCEDURE: X-RAY CHEST ONE VIEW, PORTABLE ([id number]) INDICATIONS: cough, syncope TECHNIQUE: One view of the chest was acquired. COMPARISON: None. FINDINGS: Surgical changes and devices: Patient is status post median sternotomy and CABG. 2-lead cardiac pacer is unremarkable. Lungs and pleura: No pleural effusions or pneumothorax. Lungs are clear. Mediastinum: Mediastinal contours appear normal. Heart size is normal. Bones and chest wall: No suspicious bony lesions. Overlying soft tissues appear unremarkable. IMPRESSION: No acute cardiopulmonary findings. Dictated by: Ivett Sanders M.D. on 02/21/2017 at 16:16 Approved by: Ivett Sanders M.D. on 02/21/2017 at 16:16 Cardiac Echo Impression [facility] [place] [address] Patient Name: TEDDY TAVERAS MR#: [id number] Location: [facility] [place] Ordering Phys: Aggie Pabon DO Date of Service: 02/22/171928 [facility] [address] [place] [address] Echocardiogram Report Name: TEDDY TAVERAS WStudy Date: 02/22/2017 Height: 66 in Hospital Exam Location: [facility] Weight: 140 lb Gender: Male BSA: 1.7 m2 : 1925 Age: 89 yrs BP: 150/65 mmHg Reason For Study: SYNCOPE Ordering Physician: Performed By: Lula Hugo Referring Physician: Ervin Duncan Interpretation Summary The left ventricle is normal in size, wall thickness, and systolic function without any focal wall motion abnormalities with the ejection fraction visually estimated to be 60-65%. The E/A ratio is reversed, suggesting impaired early relaxation of the left ventricle or a reduced preload state. There has been no significant change since the previous study. The right ventricle is borderline dilated but right ventricular systolic function appears normal and is likely unchanged compared to the previous study. The right ventricular systolic pressure is estimated at 39 mmHg assuming a right atrial pressure of 3 mm Hg and is slightly higher compared to the previous study. Both atria are normal in size. There is mild to moderate tricuspid regurgitation that is more prominent compared to the previous study. Otherwise, there is no other significant valvular heart disease. Procedure: A two-dimensional transthoracic echocardiogram with color flow and Doppler was performed. The study quality was technically adequate. Comparison is made with the echocardiogram of 12-12-2016. The patient has a paced rhythm. Left Ventricle: The left ventricle is normal in size, wall thickness, and systolic function without any focal wall motion abnormalities. The ejection fraction is estimated to be 60-65%. The E/A ratio is reversed, suggesting impaired early relaxation of the left ventricle or a reduced preload state. There has been no significant change since the previous study. Right Ventricle: There is a pacemaker lead in the right ventricle. The right ventricle is borderline dilated. The right ventricular systolic function is normal. This is unchanged compared to the previous study. Atria: Both atria are normal in size. There is no Doppler evidence for an atrial septal defect. Mitral Valve: There is mild to moderate mitral annular calcification. There is mild calcification extending into the subvalvular apparatus. The mitral valve leaflets are slightly calcified. There is trace mitral regurgitation. This is unchanged compared to the previous study. Aortic Valve: The aortic valve is trileaflet. The aortic valve opens well. The aortic valve is slightly calcified. There is trace aortic regurgitation. Tricuspid Valve: The tricuspid valve leaflets are thin and pliable. There is mild to moderate tricuspid regurgitation. The right ventricular systolic pressure is estimated at 39 mmHg assuming a right atrial pressure of 3 mm Hg. This is more prominent compared to the previous study. Pulmonic Valve: The pulmonic valve is not well seen, but is grossly normal. There is no other significant valvular heart disease. Great Vessels: The aortic root is normal size. The dimensions of the ascending aorta are normal. The pulmonary artery is not well visualized, but is probably normal size. The IVC is of normal diameter and collapses greater than 50% with a sniff. This suggests a low right atrial pressure of 3 mm Hg. Pericardium/ Pleura There is no pericardial effusion. There is no pleural effusion. MMode/2D Measurements & Calculations LVIDd: 4.7 cm LA dimension: 3.6 cm RA long axis LVOT diam: 2.2 cm LVIDs: 2.5 cm AoV Opening FS: 46.5 % LA A2 area: 18.4 cm RA area EPSS: 0.91 cm LA A4 area: 18.2 cm Ao root diam IVSd: 0.86 cm LA length (vol) : 16.6 cm LVPWd: 0.96 cm RA vol Aortic Jxn: 2.8 cm LA vol: 52.8 ml : 46.0 ml asc Aorta Diam LA vol index RA : 26.8 mm/ Ao Arch Diam (Prox RVDd major Trans): 2.1 cm IVC diam: 1.8 cm : 5.8 cm LV lara. diameter/BSA LV sys. diameter/BSA RVD2 (mid) (cm/m^2): 2.7 (cm/m^2): 1.5 : 4.2 cm Doppler Measurements & Calculations Ao V2 max MV E max geoff MV E/A: 0.90 TR max geoff : 116.3 cm/sec : 96.0 cm/sec Med Peak E' Geoff : 301.2 cm/sec Ao max PG MV A max geoff TR max PG : 5.4 mmHg : 107.3 cm/sec E/E' med: 9.7 : 36.3 mmHg Ao mean PG MV P1/2t: 64.7 msec Lat Peak E' Geoff PA V2 max : 69.8 cm/sec LVOT Max Geoff E/E' lat: 5.9 PA mean PG : 92.5 cm/sec E/e' average: 7.8 SHAHRZAD(I,D): 3.3 cm Pulm A Revs Dur PA Accel Time sev ratio : 0.12 sec MV A dur: 0.14 sec MV dec time MV P1/2t max geoff Ao V2 mean LV V1 max PG : 0.22 sec : 80.5 cm/sec Ao V2 VTI: 24.1 cm LV V1 VTI MVA(P1/2t): 3.4 cm2 : 20.8 cm SHAHRZAD(V,D): 3.0 cm2 PA V2 mean SHAHRZAD indexed to BSA Pulm A Revs Dur - MV : 53.6 cm/sec (cm^2/m^2): 1.9 A Dur: -0.04 msec Reading Physician:02:43 PM Invasive Procedures Cholecystostomy by Dr. Bridges on Hospital Course 89-year-old male with syncope and abdominal painin Acute cholecystitis -- Status post cholecystostomy -Discontinue Zosyn today. started Augmentin PO for 4 days. We appreciate ID recommendations in this matter -Gen. surgery following: They proved patient for discharge today -Diet: Pured, nectar thickened liquids -HIDA scan positive for acute cholecystitis -Blood cultures positive for cardiac negative staph thought to be contaminant -Tylenol and Toradol for pain management -LIZETTE drain in place: Removed -Ramirez-Solis tube in place: Still draining dark biliary fluid. Surgery plans to follow with patient in a week after discharge and clamp the tube -- Follow-up with surgery in one week -- Patient is tolerating pured diet with nectar thickened liquids, without abdominal pain on the day of discharge. He is needing assist with physical therapy mobility exercises. Elevated lipase and liver enzymes -Most likely secondary to the acute cholecystitis: Lipase normalized Dysphagia: -- Speech therapy is consulted and they documented that patient is unable to follow directions consistently, was unable to swallow as directed, they have him on stimulation diet. Daughter is unhappy -- Dietary consult -- Palliative care consult: We appreciate the recommendations -- Cut down on pain medications as it is possible that he is too drowsy most of the time: This seemed to improve patient's alertness Left arm swelling, acute: To be due to IV infiltration -- Ultrasound DVT negative on the day of discharge -- Recommended NSAIDs and K pads Cough, acute: Education was provided to daughter regarding aspiration risk, he has no infectious etiologies at this time -- Tessalon Perles as needed Syncope -Pacemaker interrogated no signs of activity everything is currently operational and normal ([facility] interrogated the pacemaker) -CT angiogram of the head shows significant changes which are most likely due to the patient's syncope -Troponins are mildly elevated but this seems to be the patient's baseline -Echo: Only slight change and elevated right ventricular pressure compared to previous echo all other changes were similar to previous echo History of heart disease and previous ND with Elevated troponins -Troponins most likely elevated secondary to demand ischemia (most likely chronic) -Continue aspirin -Continue metoprolol Diabetes -Insulin sliding scale -Accu-Cheks before meals and at bedtime - [facility] home medications for discharge Hypertension -Currently controlled -Continue lisinopril and metoprolol Dementia -Currently stable Physical deconditioning (present on admission) -PT and OT evaluation: They documented that patient is too drowsy, pain medications and reduced -- "Pt is more alert and communicative today, agreeable to participate in skilled PT treatment, though has difficulty consistently following direction. Supine to EOB w/ModA and TotA for hips to EOB; sitting balance at first Susy progressing to SBA. STS x3 w/MaxA w/o AD, therapist place anteriorly to pt blocking feet/knees; once in standing pt w/posterior lean requiring continuous cueing for extending B knees, trunk, and lifting heady; Min->ModA for standing balance. On 2nd STS, pt able to briefly demonstrate weightshifting then stepping backwards to EOB before return to sit; Pt's daughter Trinidad insists pt has shower, though shower chair is unavailable. Nsg brought in wheelchair to which pt transfers w/MaxA w/o AD and continued blocking of knees; pt unable at this time to adequately clear feet/step toward wheelchair. " -- History of bladder cancer (currently stable) Code Status: Full code DVT prophylaxis: SCDs and Lovenox Diet: Pured Power of Consumer Advocate: Lilli De Dios (Daughter) [phone] Exam Vital Signs (Last) Date Time Temp Pulse Resp B/P Pulse Ox O2 Delivery O2 Flow Rate FiO2 02/28/17 05:52 36.8 76 18 160/67 93 Room Air 02/25/17 09:08 3.00 Exam General: NAD, laying in bed HEENT: NCAT, missing dentition Eyes: [place] conjunctivae. No ptosis, Neck: No masses, trachea midline, no thyromegaly Lungs: CTA with normal respiratory effort, no crackles or wheezes CV: RRR, no murmurs/rubs/gallops, GI: Soft, non-tender with no hepatosplenomegaly Skin: Warm and dry. Psych: A&O X3, with appropriate affect Skin: LIZETTE drain site, as well as ostomy tube site appear clean and dry Test 02/21/17 15:15 02/22/17 10:02 02/24/17 05:56 02/26/17 05:48 Prothrombin Time 10.7sec (8.1-12.5) Prothromb Time International Ratio 1.00ratio Lactic Acid Level 1.1mmol/L (0.4-2.0) Magnesium Level 1.9mg/dL (1.6-2.6) Neutrophils (%) (Auto) 70.2% (40-74) Lymphocytes (%) (Auto) 19.4% (14-46) Monocytes (%) (Auto) 7.8% (4-12) Eosinophils (%) (Auto) 1.5% (0-5) Basophils (%) (Auto) 0.4% (0-3) Troponin T 0.028ug/L (0.0-0.011) Lipase 29U/L (13-60) Total Bilirubin 0.3mg/dL (0.0-1.2) Aspartate Amino Transf (AST/SGOT) 27U/L (0-50) Alanine Aminotransferase (ALT/SGPT) 18U/L (0-44) Alkaline Phosphatase 129U/L (25-160) Total Protein 5.1g/dL (6.4-8.4) Albumin 2.5g/dL (3.4-5.0) Test 02/27/17 05:57 White Blood Count 7.3th/mm3 (3.8-10.1) Red Blood Count 4.02mil/mm3 (4.40-5.80) Hemoglobin 11.7g/dL (13.8-17.2) Hematocrit 36.0% (41.0-50.0) Mean Corpuscular Volume 89.6fL (81-100) Mean Corpuscular Hemoglobin 29.1pg (27.0-35.0) Mean Corpuscular Hemoglobin Concent 32.5% (32.0-37.0) Red Cell Distribution Width 13.3% (12.3-15.4) Platelet Count 264bil/L (150-400) Sodium Level 140mEq/L (134-144) Potassium Level 3.9mEq/L (3.5-5.2) Chloride Level 105mEq/L (97-108) Carbon Dioxide Level 21mmol/L (18-29) Blood Urea Nitrogen 12mg/dL (8-27) Creatinine 0.91mg/dL (0.76-1.27) Estimat Glomerular Filtration Rate 83mL/min (>59) Glucose Level 91mg/dL (60-99) Calcium Level 7.9mg/dL (8.5-10.1) Discharge Medications Discharge Medications Amoxicillin/Clav K 875-125 mg (Amoxicillin/Clav K 875-125 mg) 875 Mg Tab 1 TAB PO BID Prescribed by: LENO ROBLERO DO Aspirin (Aspirin) 81 Mg Tablet 81 MG PO DAILY Prescribed by: LENO ROBLERO DO Cholecalciferol (Vitamin D3) (Vitamin D3) 2,000 Unit Capsule 2,000 UNIT PO DAILY Prescribed by: LENO ROBLERO DO Folic Acid (Folic Acid) 1 Mg Tablet 1 MG PO DAILY Prescribed by: LENO ROBLERO DO Glyburide (Glyburide) 1.25 Mg Tablet 0.625 MG PO DAILY Prescribed by: LENO ROBLERO DO Lisinopril (Lisinopril) 5 Mg Tablet 20 MG PO DAILY Prescribed by: LENO ROBLERO DO Magnesium Amino Acid Chelate (Magnesium) 100 Mg Tablet 200 MG PO BID Prescribed by: LENO ROBLERO DO Metoprolol Tartrate (Metoprolol Tartrate) 25 Mg Tablet 12.5 MG PO BID Prescribed by: LENO ROBLERO DO Multivitamin (Multi Vitamin Daily) 1 Each Tablet 1 EACH PO DAILY Prescribed by: LENO ROBLERO DO As needed Benzonatate (Benzonatate) 100 Mg Capsule 100 MG PO TID PRN PRN For Cough Prescribed by: LENO ROBLERO DO Ibuprofen (Ibuprofen) 200 Mg Capsule 200 MG PO BID PRN PRN For Pain Prescribed by: LENO ROBLERO DO Followup Plan Follow-up plan F/U with Dr. Bridges, surgeon in one week. F/U with PCP in 2 weeks Discharge Diet: Other (pureed diet) Discharge Activity: Other (as determined by PT/OT) Patient Instructions Please follow pureed diet as recommended by speech therapy. Please use Augmentin for 4 days, take probiotic with it. F/U with Dr. Bridges, your surgeon in one week. Follow up with your pcp in 2 weeks Please keep track of the drainage from the cholecystostomy tube and present to Dr. Bridges. Follow-up Provider: Twin Bridges MD Follow-up with PCP in: 2 weeks Leno Roblero DO Feb 28, 2017 10:01
== END 2017-02-28 12:30 | DRG 445 ==
LOC: EDBD 14:04 → SED 14:04 → OSC 17:48
PROVIDERS: ADMIT Neuromusculoskeletal Medicine & OMM; ATTEND Neuromusculoskeletal Medicine & OMM
PROC: 0F9440Z Drainage of Gallbladder with Drainage Device, Percutaneous Endoscopic Approach (ICD-10-PCS; principal; 2017-02-24 16:15)
PROC: BF101ZZ Fluoroscopy of Bile Ducts using Low Osmolar Contrast (ICD-10-PCS; 2017-02-26)
DX: K81.0 Acute cholecystitis (principal); I24.8 Other forms of acute ischemic heart disease; R55 Syncope and collapse; I25.10 Atherosclerotic heart disease of native coronary artery without angina pectoris; I10 Essential (primary) hypertension; Z95.1 Presence of aortocoronary bypass graft; Z87.891 Personal history of nicotine dependence; Z95.0 Presence of cardiac pacemaker; I25.2 Old myocardial infarction; E11.9 Type 2 diabetes mellitus without complications; Z79.84 Long term (current) use of oral hypoglycemic drugs; F03.90 Unspecified dementia, unspecified severity, without behavioral disturbance, psychotic disturbance, mood disturbance, and anxiety; Z85.51 Personal history of malignant neoplasm of bladder